=== PATIENT | female | born 1955 | race Caucasian/White ===

== ENCOUNTER 2018-06-05 08:06 | Inpatient (IN) | payer BC ==
[2018-06-05] MEDS ORDERED: IBUPROFEN 600 MG TAB PO STA (08:08)
[2018-06-05] MEDS ORDERED: ACETAMINOPHEN TAB 500 MG TAB PO STA (08:08)
[2018-06-05] MEDS ORDERED: IPRATROPIUM-ALBUTEROL 3 ML NEB INHALATION STA (08:09)
--- NOTE | 2018-06-05 08:12 | ED ---
General Adult HPI - General Stated complaint: ROSIE Time Seen by Provider: 06/05/18 08:06 Source: RN notes reviewed - History of Present Illness Initial comments: This is a 62-year-old female who presents emergency Department complaining of not feeling well over the last 3 days. Patient is a smoker and a diabetic. Patient states she's been feeling extremely tired and she's had a cough but no sputum production. Patient denies knowing of any fevers. Patient denies any chest pain or palpitations. Patient denies abdominal pain patient denies nausea vomiting diarrhea. Patient denies any headache. Patient denies any lightheadedness or dizziness. Patient denies any recent injury or trauma. Patient denies any dysuria hematuria urinary frequency. - Related Data Home Medications Medication Instructions Recorded Confirmed Atorvastatin [Lipitor] 20 mg PO DAILY 06/05/18 06/05/18 Buprenorphine HCl [Subutex] 8 mg SL TID 06/05/18 06/05/18 Cholecalciferol [Vitamin D3] 4,000 unit PO DAILY 06/05/18 06/05/18 Ibuprofen [Motrin Ib] 400 mg PO Q6H PRN 06/05/18 06/05/18 [place]-3 Fatty Acids [[place]-3] 1,000 mg PO BID 06/05/18 06/05/18 Telmisartan/Hydrochlorothiazid 1 tab PO DAILY 06/05/18 06/05/18 [Micardis Hct 80-12.5 mg Tablet] metFORMIN HCL 500 mg PO DAILY 06/05/18 06/05/18 Allergies Allergy/AdvReac Type Severity Reaction Status Date / Time No Known Allergies Allergy Verified 06/05/18 08:43 Review of Systems ROS Statement: Those systems with pertinent positive or pertinent negative responses have been documented in the HPI. ROS Other: All systems not noted in ROS Statement are negative. General Exam - General Exam Comments Initial Comments: GENERAL: Patient is well-developed and well-nourished. Patient is nontoxic and well- hydrated and is in mild distress. ENT: Neck is soft and supple. No significant lymphadenopathy is noted. Oropharynx is clear. Dry mucous membranes. Neck has full range of motion without eliciting any pain. EYES: The sclera were anicteric and conjunctiva were pink and moist. Extraocular movements were intact and pupils were equal round and reactive to light. Eyelids were unremarkable. PULMONARY: Patient has expiratory wheezing and crackles at the right base. Patient was giving poor effort at this time. CARDIOVASCULAR: There is a regular rate and rhythm without any murmurs gallops or rubs. ABDOMEN: Soft and nontender with normal bowel sounds. No palpable organomegaly was noted. There is no palpable pulsatile mass. SKIN: Skin is clear with no lesions or rashes and otherwise unremarkable. NEUROLOGIC: Patient is alert and oriented x3. Cranial nerves II through XII are grossly intact. Motor and sensory are also intact. Normal speech, volume and content. Symmetrical smile. MUSCULOSKELETAL: Normal extremities with adequate strength and full range of motion. No lower extremity swelling or edema. No calf tenderness. LYMPHATICS: No significant lymphadenopathy is noted PSYCHIATRIC: Normal psychiatric evaluation. Course Vital Signs 06/05/18 06/05/18 06/05/18 08:13 08:43 08:55 Temperature 101.3 F H Pulse Rate 109 H 101 H 103 H Respiratory 20 Rate Blood Pressure 109/58 O2 Sat by Pulse Oximetry 06/05/18 09:35 Temperature 99.0 F Pulse Rate 97 Respiratory 20 Rate Blood Pressure 106/53 O2 Sat by Pulse 94 L Oximetry Medical Decision Making - Medical Decision Making EKG shows sinus tachycardia at 107 bpm MT interval is 172 QRS is 68 QT interval 332 QTC is 443. Patient has no T-wave abnormalities no ST segment elevation or depression. Patient has a right lower lobe pneumonia. I started the patient 2 g Rocephin. I started the patient on Zithromax as well. I spoke with Dr. Tony and he agreed to admit the patient. I admitted the patient wrote admitting orders. I continued antibiotics on the floor. I discussed smoking cessation for greater than 3 minutes. The risks of smoking were discussed with the patient including but not limited to risks of cancer, stroke, coronary artery disease and COPD. Also discussed with the patient were multiple methods of quitting smoking. Lastly we discussed the financial costs of smoking. - Lab Data Result diagrams: 06/05/18 08:35 06/05/18 08:35 Lab Results 06/05/18 06/05/18 06/05/18 Range/Units 08:35 08:35 08:35 WBC 14.5 H (3.8-10.6) k/uL RBC 4.70 (3.80-5.40) m/uL Hgb 14.8 (11.4-16.0) gm/dL Hct 46.1 H (34.0-46.0) % MCV 98.2 (80.0-100.0) fL MCH 31.5 (25.0-35.0) pg MCHC 32.1 (31.0-37.0) g/dL RDW 13.2 (11.5-15.5) % Plt Count 147 L (150-450) k/uL Neutrophils % 91 % Lymphocytes % 5 % Monocytes % 3 % Eosinophils % 1 % Basophils % 0 % Neutrophils # 13.2 H (1.3-7.7) k/uL Lymphocytes # 0.7 L (1.0-4.8) k/uL Monocytes # 0.5 (0-1.0) k/uL Eosinophils # 0.2 (0-0.7) k/uL Basophils # 0.0 (0-0.2) k/uL PT (9.0-12.0) sec INR (<1.2) APTT (22.0-30.0) sec Sodium 143 (137-145) mmol/L Potassium 4.1 (3.5-5.1) mmol/L Chloride 103 (98-107) mmol/L Carbon Dioxide 30 (22-30) mmol/L Anion Gap 10 mmol/L BUN 49 H (7-17) mg/dL Creatinine 0.89 (0.52-1.04) mg/dL Est GFR (CKD-EPI)AfAm 81 (>60 ml/min/1.73 sqM) Est GFR (CKD-EPI)NonAf 70 (>60 ml/min/1.73 sqM) Glucose 153 H (74-99) mg/dL Plasma Lactic Acid Darvin (0.7-2.0) mmol/L Calcium 9.0 (8.4-10.2) mg/dL Total Bilirubin 1.4 H (0.2-1.3) mg/dL AST 17 (14-36) U/L ALT 19 (9-52) U/L Alkaline Phosphatase 76 (38-126) U/L Total Creatine Kinase 52 (30-135) U/L Total Protein 7.0 (6.3-8.2) g/dL Albumin 3.9 (3.5-5.0) g/dL 06/05/18 06/05/18 Range/Units 08:35 08:35 WBC (3.8-10.6) k/uL RBC (3.80-5.40) m/uL Hgb (11.4-16.0) gm/dL Hct (34.0-46.0) % MCV (80.0-100.0) fL MCH (25.0-35.0) pg MCHC (31.0-37.0) g/dL RDW (11.5-15.5) % Plt Count (150-450) k/uL Neutrophils % % Lymphocytes % % Monocytes % % Eosinophils % % Basophils % % Neutrophils # (1.3-7.7) k/uL Lymphocytes # (1.0-4.8) k/uL Monocytes # (0-1.0) k/uL Eosinophils # (0-0.7) k/uL Basophils # (0-0.2) k/uL PT 11.7 (9.0-12.0) sec INR 1.1 (<1.2) APTT 24.2 (22.0-30.0) sec Sodium (137-145) mmol/L Potassium (3.5-5.1) mmol/L Chloride (98-107) mmol/L Carbon Dioxide (22-30) mmol/L Anion Gap mmol/L BUN (7-17) mg/dL Creatinine (0.52-1.04) mg/dL Est GFR (CKD-EPI)AfAm (>60 ml/min/1.73 sqM) Est GFR (CKD-EPI)NonAf (>60 ml/min/1.73 sqM) Glucose (74-99) mg/dL Plasma Lactic Acid Darvin 1.3 (0.7-2.0) mmol/L Calcium (8.4-10.2) mg/dL Total Bilirubin (0.2-1.3) mg/dL AST (14-36) U/L ALT (9-52) U/L Alkaline Phosphatase (38-126) U/L Total Creatine Kinase (30-135) U/L Total Protein (6.3-8.2) g/dL Albumin (3.5-5.0) g/dL Disposition Clinical Impression: Pneumonia Disposition: ADMITTED IP TO THIS HOSP Referrals: Ken Ham DO [Primary Care Provider] - 1-2 days Time of Disposition: 09:24
[2018-06-05] MEDS ORDERED: cefTRIAXone 2,000 MG in SODIUM CHLORIDE 0.9% 100 ML IVPB STA (08:21)
[2018-06-05] MEDS: SODIUM CHLORIDE 0.9% 500 ML 500 ML IV SCH ×4 (08:26→09:56)
[2018-06-05 09:05] LABS: Basophils % (A) 0 %; Eosinophils # (A) 0.2 k/uL (0-0.7); Eosinophils % (A) 1 %; HCT 46.1 % (34.0-46.0); HGB 14.8 gm/dL (11.4-16.0); Lymphocytes # (A) 0.7 k/uL (1.0-4.8); Lymphocytes % (A) 5 %; MCH 31.5 pg (25.0-35.0); MCHC 32.1 g/dL (31.0-37.0); MCV 98.2 fL (80.0-100.0); Mean Platelet Volume 6.8; Monocytes # (A) 0.5 k/uL (0-1.0); Monocytes % (A) 3 %; Neutrophils # (A) 13.2 k/uL (1.3-7.7); Neutrophils % (A) 91 %; Platelet Count 147 k/uL (150-450); RDW 13.2 % (11.5-15.5); WBC 14.5 k/uL (3.8-10.6)
[2018-06-05 09:14] LABS: Albumin 3.9 g/dL (3.5-5.0); Potassium 4.1 mmol/L (3.5-5.1); Total Bilirubin 1.4 mg/dL (0.2-1.3)
--- NOTE | 2018-06-05 09:17 | XR ---
EXAMINATION TYPE: XR chest 2V DATE OF EXAM: 06/05/2018 COMPARISON: NONE HISTORY: Shortness of breath TECHNIQUE: Frontal and lateral views of the chest are obtained. FINDINGS: Scattered senescent parenchymal changes noted. Hyperinflation compatible with COPD. Patchy infiltrate right lower lobe is felt to reflect pneumonia. Correlate clinically and progress st udies are recommended. Mild pulmonary venous congestion without overt failure. Heart size is at the upper limits of normal. Mediastinal structures are stable and grossly unremarkable. No evidence for hilar prominence. Degenerative changes dorsal spine. IMPRESSION: 1. Patchy infiltrate right lower lobe is felt to reflect pneumonia. Correlate clinically and progress studies are recommended. Mild pulmonary venous congestion without overt failure.
[2018-06-05 09:19] LABS: INR 1.1 (<1.2); Partial Thromboplastin Time 24.2 sec (22.0-30.0); Prothrombin Time 11.7 sec (9.0-12.0)
[2018-06-05] MEDS ORDERED: AZITHROMYCIN 500 MG in SODIUM CHLORIDE 0.9% 250 ML IVPB STA (09:24)
[2018-06-05] MEDS ORDERED: PNEUMONIA PROTOCOL UTILIZED 1 EACH MISC PO PRN (09:24)
[2018-06-05 09:46] LABS: Creatine Kinase MB 0.6 ng/mL (0.0-2.4); Troponin I 0.016 ng/mL (0.000-0.034)
[2018-06-05 16:33] LABS: Appearance,Urine Cloudy (Clear); Bilirubin,Urine Negative (Negative); Blood,Urine Negative (Negative); Color,Urine Yellow; Glucose,Urine (UA) Negative (Negative); Ketones,Urine Negative (Negative); Leukocyte Esterase,Urine Small (Negative); Mucus,Urine Rare /hpf; Nitrite,Urine Negative (Negative); Protein,Urine 1+ (Negative); RBC,Urine 1 /hpf (0-5); Specific Gravity,Urine 1.018 (1.001-1.035); Squamous Epithelial Cell,Urine 8 /hpf (0-4); Urobilinogen,Urine <2.0 mg/dL (<2.0); WBC,Urine 4 /hpf (0-5)
[2018-06-05] MEDS ORDERED: IPRATROPIUM-ALBUTEROL 3 ML NEB INHALATION PRN (18:05)
[2018-06-05] MEDS ORDERED: FUROSEMIDE 10 MG/ML 4 ML VIAL IV STA (18:07)
[2018-06-05] MEDS: methylPREDNISolone SOD SUCCI 40 MG/ML 1 ML VIAL IV SCH ×2 (18:14→23:23)
[2018-06-05] MEDS: IPRATROPIUM-ALBUTEROL 3 ML NEB INHALATION SCH (20:01)
[2018-06-05 21:14] LABS: Glucose,Whole Blood 132 mg/dL (75-99)
[2018-06-05] MEDS: INSULIN ASPART 100 UNIT/ML 1 ML 10 ML VIAL SQ SCH (21:46)
[2018-06-06 01:54] LABS: Hemoglobin A1C 6.1 % (4.0-6.0)
[2018-06-06 07:33] LABS: Glucose,Whole Blood 155 mg/dL (75-99)
[2018-06-06] MEDS: IPRATROPIUM-ALBUTEROL 3 ML NEB INHALATION SCH ×4 (07:40→20:00)
[2018-06-06] MEDS: methylPREDNISolone SOD SUCCI 40 MG/ML 1 ML VIAL IV SCH ×2 (08:40→16:46)
[2018-06-06] MEDS: INSULIN ASPART 100 UNIT/ML 1 ML 10 ML VIAL SQ SCH ×4 (08:40→21:46)
[2018-06-06] MEDS ORDERED: AZITHROMYCIN 500 MG TAB PO SCH (09:00)
--- NOTE | 2018-06-06 09:53 | XR ---
EXAMINATION TYPE: XR chest 2V DATE OF EXAM: 06/06/2018 COMPARISON: 06/05/2018 HISTORY: 62 year-old female follow-up pneumonia TECHNIQUE: Frontal and lateral views FINDINGS: Borderline heart size. Aorta within normal limits. Mild diffuse interstitial prominence. Some patchy bibasilar densities and trace effusions suggested. IMPRESSION: 2. Heart size with interstitial changes and trace effusions. Correlate for mild CHF. 2. Increased patchy bibasilar areas of atelectasis or infiltrates.
[2018-06-06 12:13] LABS: Glucose,Whole Blood 231 mg/dL (75-99)
--- NOTE | 2018-06-06 13:26 | HP ---
HISTORY AND PHYSICAL CHIEF COMPLAINT: Pneumonitis and COPD exacerbation. HISTORY OF PRESENT ILLNESS: This is the first known admission for this 62-year-old female who presented to the emergency room with not feeling well. She is diabetic. She does smoke. In the emergency room, she was worked up and felt to have pneumonitis and COPD. Infiltrate looks as though was in the right lower lobe. She had laboratory studies in the emergency room with white count 25579. Blood sugar slightly elevated at 153. REVIEW OF SYSTEMS: She denies any headaches, neurologic problems, difficulty with vision or hearing, chest pain, orthopnea, PND, nausea, vomiting, melena, hematochezia, jaundice, hematuria, frequency, urgency, incontinence, etc. PAST MEDICAL HISTORY: Past medical history, family history and personal and social histories are unremarkable otherwise. She has had 5 pregnancies and 5 deliveries. She is not allergic to any medications. MEDICATIONS: At home, she has been on atorvastatin, Suboxone, vitamin D, ibuprofen, metformin, Micardis, and omega-3. PHYSICAL EXAM: VITAL SIGNS: Temperature 101.3, pulse 109, respirations were 40, and blood pressure 109/58. GENERAL: She appeared to be in no acute distress. She was lethargic. Skin is dry and lymph nodes not enlarged. HEENT: Head, ears, eyes, nose, mouth, and throat were normal. Neck veins are not distended. Thyroid was not enlarged. CHEST: Clear except for decreased breath sounds at the right base. CARDIOVASCULAR: Cardiac exam is normal. ABDOMEN: Abdomen is soft, nontender. EXTREMITIES: Normal. IMPRESSION: 1. Pneumonitis. 2. Chronic obstructive pulmonary disease. 3. History of hypertension. 4. History of substance abuse. PLAN: 1. Bed rest. 2. IV fluids. 3. Serial EKGs. 4. Inhaled and IV steroids and updrafts. MMODL / IJN: [id number] /
[2018-06-06 17:02] LABS: Glucose,Whole Blood 155 mg/dL (75-99)
[2018-06-06] MEDS ORDERED: CEPHALEXIN 500 MG CAP PO SCH (18:00)
--- NOTE | 2018-06-06 18:51 | PN ---
PROGRESS NOTE CHIEF COMPLAINT: Exacerbation of chronic obstructive pulmonary disease and pneumonia. HISTORY OF PRESENT ILLNESS: This lady's doing reasonably well and wants to go home, but when oxygen is taken off she drops down to 80 or 79. It is felt that she should not be discharged. She will be kept another day. PHYSICAL EXAM: She does have decreased breath sounds with wheezing, rales and rhonchi throughout. Cardiac exam is normal. IMPRESSION: 1. Exacerbation of chronic obstructive pulmonary disease. 2. Pneumonitis. PLAN: Cancel discharge and see how she does being left off of O2. MMODL / IJN: [id number] /
[2018-06-06 21:39] LABS: Glucose,Whole Blood 233 mg/dL (75-99)
[2018-06-07] MEDS: methylPREDNISolone SOD SUCCI 40 MG/ML 1 ML VIAL IV SCH (00:36)
[2018-06-07 06:15] VITALS: BP 123/74; RESP 19; TEMP 98.2
[2018-06-07 07:45] LABS: Glucose,Whole Blood 159 mg/dL (75-99)
[2018-06-07] MEDS: IPRATROPIUM-ALBUTEROL 3 ML NEB INHALATION SCH ×2 (08:54→12:06)
[2018-06-07] MEDS ORDERED: LOSARTAN 50 MG TAB PO SCH (09:00)
[2018-06-07] MEDS ORDERED: methylPREDNISolone 4 MG TAB PO SCH (09:00)
[2018-06-07] MEDS ORDERED: HYDROCHLOROTHIAZIDE 12.5 MG CAP PO SCH (09:00)
[2018-06-07] MEDS ORDERED: AZITHROMYCIN 500 MG TAB PO SCH (09:00)
[2018-06-07] MEDS: INSULIN ASPART 100 UNIT/ML 1 ML 10 ML VIAL SQ SCH ×2 (09:15→11:58)
[2018-06-07 12:07] LABS: Glucose,Whole Blood 133 mg/dL (75-99)
[2018-06-07 12:21] VITALS: PULSE 92
--- NOTE | 2018-06-07 13:25 | PN ---
PROGRESS NOTE CHIEF COMPLAINT: Respiratory failure, exacerbation of COPD and pneumonitis. HISTORY OF PRESENT ILLNESS: This lady continues to have difficulty. Whenever she is off of O2, she drops down below 80. PHYSICAL EXAM: Chest is a little bit more clear. Cardiac exam is normal. At the present time, she is on oxygen and she cannot get along without it. IMPRESSION: 1. Exacerbation of chronic obstructive pulmonary disease. 2. Pneumonitis. PLAN: Continue to treat until her pulse ox recovers. Her is very anxious to get her out of the hospital and he may sign her out AGAINST MEDICAL ADVICE. ROCIO / MARSHA: [id number] /
== END 2018-06-07 14:02 | disposition left against medical advice (07) | DRG 193 ==
LOC: EC 08:06 → 4MS4W 09:31 → OBSVTOIN 06-07 09:52
PROVIDERS: ADMIT Family Medicine; ATTEND Family Medicine
DX: J18.9 Pneumonia, unspecified organism (principal); J96.90 Respiratory failure, unspecified, unspecified whether with hypoxia or hypercapnia; J44.0 Chronic obstructive pulmonary disease with (acute) lower respiratory infection; J44.1 Chronic obstructive pulmonary disease with (acute) exacerbation; F17.210 Nicotine dependence, cigarettes, uncomplicated; E11.9 Type 2 diabetes mellitus without complications; I10 Essential (primary) hypertension; Z79.84 Long term (current) use of oral hypoglycemic drugs; Z79.899 Other long term (current) drug therapy; F19.11 Other psychoactive substance abuse, in remission
CPT/HCPCS: 36415; 71046; 80053; 81001; 82550; 82553; 83036; 83605; 84484; 85025; 85610; 85730; 87040; 87086; 87502; 93005; 94640

== ENCOUNTER 2018-09-19 18:54 | Inpatient (IN) | payer BC ==
[2018-09-19] MEDS ORDERED: ALBUTEROL NEBULIZED 2.5 MG/3 ML INHALATION STA (18:55)
[2018-09-19] MEDS ORDERED: IPRATROPIUM 0.5 MG/2.5 ML NEBU INHALATION STA (18:55)
[2018-09-19] MEDS ORDERED: methylPREDNISolone SOD SUCCI 125 MG/2 ML VIAL IV STA (18:55)
--- NOTE | 2018-09-19 18:59 | ED ---
General Adult HPI - General Stated complaint: Altered Mental Status Time Seen by Provider: 09/19/18 18:55 Source: patient, family, EMS, RN notes reviewed, old records reviewed - History of Present Illness Initial comments: 63-year-old female presenting with dyspnea, lethargy. Patient had previous hospital admission with pneumonia with similar clinical presentation according to the patient's . History is limited, given predominant by EMS and patient's who is at bedside per she presents in moderate respiratory distress. Decreased level of consciousness. She will answer simple questions. EMS does report stable vitals and given albuterol prior to arrival. No preceding vomiting or diarrhea. Patient was noted by family to have elevated temperature. - Related Data Home Medications Medication Instructions Recorded Confirmed Atorvastatin [Lipitor] 20 mg PO DAILY 06/05/18 09/19/18 Buprenorphine HCl [Subutex] 8 mg SL TID 06/05/18 09/19/18 Cholecalciferol [Vitamin D3] 4,000 unit PO DAILY 06/05/18 09/19/18 Ibuprofen [Motrin Ib] 400 mg PO Q6H PRN 06/05/18 09/19/18 [place]-3 Fatty Acids [[place]-3] 1,000 mg PO BID 06/05/18 09/19/18 Telmisartan/Hydrochlorothiazid 1 tab PO DAILY 06/05/18 09/19/18 [Micardis Hct 80-12.5 mg Tablet] metFORMIN HCL 500 mg PO DAILY 06/05/18 09/19/18 Previous Rx's Medication Instructions Recorded Ipratropium-Albuterol Nebulize 3 ml INHALATION RT-QID #120 06/06/18 [Duoneb 0.5 mg-3 mg/3 ml Soln] ampul.neb Allergies Allergy/AdvReac Type Severity Reaction Status Date / Time No Known Allergies Allergy Verified 09/19/18 19:15 Review of Systems ROS Statement: Those systems with pertinent positive or pertinent negative responses have been documented in the HPI. ROS Other: All systems not noted in ROS Statement are negative. Past Medical History Past Medical History: Diabetes Mellitus, Hyperlipidemia, Hypertension Additional Past Medical History / Comment(s): Chronic back and neck pain, NIDDM type II. History of Any Multi-Drug Resistant Organisms: None Reported Past Surgical History: Cholecystectomy, Orthopedic Surgery Additional Past Surgical History / Comment(s): Bilateral cataract removals/lens implants. Past Anesthesia/Blood Transfusion Reactions: No Reported Reaction Smoking Status: Current every day smoker - Past Family History Father Family Medical History: Coronary Artery Disease (CAD) Additional Family Medical History / Comment(s): Father had CABG. He in his 70s. Mother Family Medical History: No Reported History Additional Family Medical History / Comment(s): Mother was healthy and lived to be 92 yrs old. General Exam General appearance: lethargic, in distress Head exam: Present: atraumatic, normocephalic Eye exam: Present: normal appearance, PERRL ENT exam: Present: mucous membranes dry Neck exam: Present: normal inspection. Absent: tenderness, meningismus Respiratory exam: Present: respiratory distress, rhonchi, accessory muscle use, decreased breath sounds. Absent: wheezes Cardiovascular Exam: Present: regular rate, normal rhythm GI/Abdominal exam: Present: soft. Absent: distended, tenderness, guarding Extremities exam: Present: pedal edema Neurological exam: Absent: motor sensory deficit Skin exam: Present: warm, dry, intact. Absent: cyanosis, diaphoretic Course Vital Signs 09/19/18 09/19/18 09/19/18 18:58 19:32 19:53 Temperature 101.3 F H Pulse Rate 101 H 101 H 101 H Respiratory 22 Rate Blood Pressure 143/71 O2 Sat by Pulse 90 L Oximetry 09/19/18 20:28 Temperature 99.4 F Pulse Rate 109 H Respiratory 18 Rate Blood Pressure 134/68 O2 Sat by Pulse 96 Oximetry EKG Findings - EKG Comments: EKG Findings:: EKG: Normal sinus rhythm, rate of 100, IN interval 182 QRS duration 66, QTC [address] segment changes. Medical Decision Making - Medical Decision Making 63-year-old female presents with lethargy, fever, dyspnea. Patient is responsive although somewhat lethargic. Given treatment by EMS prior to arrival. She has minimal air entry with wheezing on exam. She is moving all extremities symmetrically. Vital signs do reveal tachycardia, fever, she is initiated on antibiotics awaiting cultures. Workup in the emergency department reveals normal white blood cell count 4.2, hemoglobin is elevated 17.6, ABG shows pH 7.25, and CO2 79 consistent with hypercarbia. CMP unremarkable, tropon in and BNP are negative. Head CT is obtained given the degree of lethargy,negative for any acute intracranial pathology. Patient is arousable, she is alert with verbal stimuli. Patient is placed on BiPAP for hypoxic hypercapnic respiratory failure. - Lab Data Result diagrams: 09/19/18 19:19 09/19/18 19:19 Lab Results 09/19/18 09/19/18 09/19/18 Range/Units 19:19 19:19 19:19 WBC 4.2 (3.8-10.6) k/uL RBC 5.56 H (3.80-5.40) m/uL Hgb 17.6 H (11.4-16.0) gm/dL Hct 53.6 H (34.0-46.0) % MCV 96.4 (80.0-100.0) fL MCH 31.6 (25.0-35.0) pg MCHC 32.8 (31.0-37.0) g/dL RDW 14.5 (11.5-15.5) % Plt Count 148 L (150-450) k/uL Neutrophils % 77 % Lymphocytes % 13 % Monocytes % 5 % Eosinophils % 3 % Basophils % 1 % Neutrophils # 3.2 (1.3-7.7) k/uL Lymphocytes # 0.5 L (1.0-4.8) k/uL Monocytes # 0.2 (0-1.0) k/uL Eosinophils # 0.1 (0-0.7) k/uL Basophils # 0.0 (0-0.2) k/uL PT (9.0-12.0) sec INR (<1.2) APTT (22.0-30.0) sec Sample Site ABG pH (7.35-7.45) ABG pCO2 (35-45) mmHg ABG pO2 (83-108) mmHg ABG HCO3 (21-25) mmol/L ABG Total CO2 (19-24) mmol/L ABG O2 Saturation (94-97) % ABG Base Excess mmol/L Bassam Test VBG pH (7.31-7.41) VBG pCO2 (37-51) mmHg VBG HCO3 (24-28) mmol/L FiO2 % Sodium 141 (137-145) mmol/L Potassium 4.4 (3.5-5.1) mmol/L Chloride 102 (98-107) mmol/L Carbon Dioxide 33 H (22-30) mmol/L Anion Gap 6 mmol/L BUN 22 H (7-17) mg/dL Creatinine 0.50 L (0.52-1.04) mg/dL Est GFR (CKD-EPI)AfAm >90 (>60 ml/min/1.73 sqM) Est GFR (CKD-EPI)NonAf >90 (>60 ml/min/1.73 sqM) Glucose 113 H (74-99) mg/dL Plasma Lactic Acid Darvin (0.7-2.0) mmol/L Calcium 9.1 (8.4-10.2) mg/dL Magnesium 1.9 (1.6-2.3) mg/dL Total Bilirubin 0.6 (0.2-1.3) mg/dL AST 18 (14-36) U/L ALT 25 (9-52) U/L Alkaline Phosphatase 97 (38-126) U/L Troponin I (0.000-0.034) ng/mL NT-Pro-B Natriuret Pep 194 pg/mL Total Protein 7.0 (6.3-8.2) g/dL Albumin 4.0 (3.5-5.0) g/dL Influenza Type A RNA (Not Detectd) Influenza Type B (PCR) (Not Detectd) 09/19/18 09/19/18 09/19/18 Range/Units 19:19 19:19 19:19 WBC (3.8-10.6) k/uL RBC (3.80-5.40) m/uL Hgb (11.4-16.0) gm/dL Hct (34.0-46.0) % MCV (80.0-100.0) fL MCH (25.0-35.0) pg MCHC (31.0-37.0) g/dL RDW (11.5-15.5) % Plt Count (150-450) k/uL Neutrophils % % Lymphocytes % % Monocytes % % Eosinophils % % Basophils % % Neutrophils # (1.3-7.7) k/uL Lymphocytes # (1.0-4.8) k/uL Monocytes # (0-1.0) k/uL Eosinophils # (0-0.7) k/uL Basophils # (0-0.2) k/uL PT 11.2 (9.0-12.0) sec INR 1.1 (<1.2) APTT 24.6 (22.0-30.0) sec Sample Site ABG pH (7.35-7.45) ABG pCO2 (35-45) mmHg ABG pO2 (83-108) mmHg ABG HCO3 (21-25) mmol/L ABG Total CO2 (19-24) mmol/L ABG O2 Saturation (94-97) % ABG Base Excess mmol/L Bassam Test VBG pH (7.31-7.41) VBG pCO2 (37-51) mmHg VBG HCO3 (24-28) mmol/L FiO2 % Sodium (137-145) mmol/L Potassium (3.5-5.1) mmol/L Chloride (98-107) mmol/L Carbon Dioxide (22-30) mmol/L Anion Gap mmol/L BUN (7-17) mg/dL Creatinine (0.52-1.04) mg/dL Est GFR (CKD-EPI)AfAm (>60 ml/min/1.73 sqM) Est GFR (CKD-EPI)NonAf (>60 ml/min/1.73 sqM) Glucose (74-99) mg/dL Plasma Lactic Acid Darvin 1.0 (0.7-2.0) mmol/L Calcium (8.4-10.2) mg/dL Magnesium (1.6-2.3) mg/dL Total Bilirubin (0.2-1.3) mg/dL AST (14-36) U/L ALT (9-52) U/L Alkaline Phosphatase (38-126) U/L Troponin I <0.012 (0.000-0.034) ng/mL NT-Pro-B Natriuret Pep pg/mL Total Protein (6.3-8.2) g/dL Albumin (3.5-5.0) g/dL Influenza Type A RNA (Not Detectd) Influenza Type B (PCR) (Not Detectd) 09/19/18 09/19/18 09/19/18 Range/Units 19:19 20:27 20:30 WBC (3.8-10.6) k/uL RBC (3.80-5.40) m/uL Hgb (11.4-16.0) gm/dL Hct (34.0-46.0) % MCV (80.0-100.0) fL MCH (25.0-35.0) pg MCHC (31.0-37.0) g/dL RDW (11.5-15.5) % Plt Count (150-450) k/uL Neutrophils % % Lymphocytes % % Monocytes % % Eosinophils % % Basophils % % Neutrophils # (1.3-7.7) k/uL Lymphocytes # (1.0-4.8) k/uL Monocytes # (0-1.0) k/uL Eosinophils # (0-0.7) k/uL Basophils # (0-0.2) k/uL PT (9.0-12.0) sec INR (<1.2) APTT (22.0-30.0) sec Sample Site rrad ABG pH 7.25 L (7.35-7.45) ABG pCO2 79 H* (35-45) mmHg ABG pO2 60 L (83-108) mmHg ABG HCO3 34 H (21-25) mmol/L ABG Total CO2 37 H (19-24) mmol/L ABG O2 Saturation 89.2 L (94-97) % ABG Base Excess 7.2 mmol/L Bassam Test Yes VBG pH 7.22 L (7.31-7.41) VBG pCO2 86 H* (37-51) mmHg VBG HCO3 34 H (24-28) mmol/L FiO2 28 % Sodium (137-145) mmol/L Potassium (3.5-5.1) mmol/L Chloride (98-107) mmol/L Carbon Dioxide (22-30) mmol/L Anion Gap mmol/L BUN (7-17) mg/dL Creatinine (0.52-1.04) mg/dL Est GFR (CKD-EPI)AfAm (>60 ml/min/1.73 sqM) Est GFR (CKD-EPI)NonAf (>60 ml/min/1.73 sqM) Glucose (74-99) mg/dL Plasma Lactic Acid Darvin (0.7-2.0) mmol/L Calcium (8.4-10.2) mg/dL Magnesium (1.6-2.3) mg/dL Total Bilirubin (0.2-1.3) mg/dL AST (14-36) U/L ALT (9-52) U/L Alkaline Phosphatase (38-126) U/L Troponin I (0.000-0.034) ng/mL NT-Pro-B Natriuret Pep pg/mL Total Protein (6.3-8.2) g/dL Albumin (3.5-5.0) g/dL Influenza Type A RNA Not Detected (Not Detectd) Influenza Type B (PCR) Not Detected (Not Detectd) Critical Care Time Critical Care Time: Yes Total Critical Care Time: 35 Disposition Clinical Impression: Respiratory failure with hypoxia and hypercapnia, COPD exacerbation Disposition: ADMITTED IP TO THIS HOSP Condition: Serious Is patient prescribed a controlled substance at d/c from ED?: No Referrals: Ken Ham DO [Primary Care Provider] - 1-2 days Decision to Admit Reason: Admit from EC Decision Date: 09/19/18 Decision Time: 21:20
[2018-09-19 19:38] LABS: VBG PH 7.22 (7.31-7.41)
[2018-09-19 19:48] LABS: INR 1.1 (<1.2); Partial Thromboplastin Time 24.6 sec (22.0-30.0); Prothrombin Time 11.2 sec (9.0-12.0)
[2018-09-19 19:53] LABS: ALT 25 U/L (9-52); AST 18 U/L (14-36); Alkaline Phosphatase 97 U/L (38-126); Anion Gap 6 mmol/L; Blood Urea Nitrogen 22 mg/dL (7-17); Calcium 9.1 mg/dL (8.4-10.2); Carbon Dioxide 33 mmol/L (22-30); Chloride 102 mmol/L (98-107); Glucose 113 mg/dL (74-99); Magnesium 1.9 mg/dL (1.6-2.3); Potassium 4.4 mmol/L (3.5-5.1); Sodium 141 mmol/L (137-145); Total Bilirubin 0.6 mg/dL (0.2-1.3)
[2018-09-19 19:55] LABS: Basophils % (A) 1 %; Eosinophils # (A) 0.1 k/uL (0-0.7); Eosinophils % (A) 3 %; HCT 53.6 % (34.0-46.0); HGB 17.6 gm/dL (11.4-16.0); Lymphocytes # (A) 0.5 k/uL (1.0-4.8); Lymphocytes % (A) 13 %; MCH 31.6 pg (25.0-35.0); MCHC 32.8 g/dL (31.0-37.0); MCV 96.4 fL (80.0-100.0); Mean Platelet Volume 7.3; Monocytes # (A) 0.2 k/uL (0-1.0); Monocytes % (A) 5 %; Neutrophils # (A) 3.2 k/uL (1.3-7.7); Neutrophils % (A) 77 %; Platelet Count 148 k/uL (150-450); RBC 5.56 m/uL (3.80-5.40); RDW 14.5 % (11.5-15.5); WBC 4.2 k/uL (3.8-10.6)
--- NOTE | 2018-09-19 20:29 | CT ---
EXAMINATION TYPE: CT brain wo con DATE OF EXAM: 09/19/2018 COMPARISON: None INDICATION: altered mental status DLP: 1150.4 mGycm, Automated exposure control for dose reduction was used. CONTRAST: None CT of the brain is performed utilizing 3 mm thick sections through the posterior fossa and 3 mm thick sections through the remaining calvarium. Study is performed within 24 hours of arrival to the hosp ital. No abnormal hyperdensity is present to suggest an acute intracranial hemorrhage. No mass lesion is evident. No acute infarcts are evident. Ventricles and sulci are appropriate for the patient age. Mucosal thickening is through the bilateral maxillary sinuses. Mastoid air cells are clear. Some motion artifact is evident during the exam. IMPRESSIONS: 1. No suspicious acute intracranial process.
[2018-09-19 20:30] LABS: ABG Base Excess 7.2 mmol/L; ABG HCO3 34 mmol/L (21-25); ABG Oxygen Saturation 89.2 % (94-97); ABG PH 7.25 (7.35-7.45); ABG PO2 60 mmHg (83-108); ABG TCO2 37 mmol/L (19-24)
[2018-09-19] MEDS ORDERED: IPRATROPIUM-ALBUTEROL 3 ML NEB INHALATION PRN (21:02)
[2018-09-19] MEDS ORDERED: ALBUTEROL NEBULIZED 2.5 MG/3 ML INHALATION PRN (21:06)
[2018-09-19] MEDS ORDERED: VANCOMYCIN IV PER PHARMACY 1 EACH MISC MISCELLANE PRN (21:07)
[2018-09-19] MEDS ORDERED: AZITHROMYCIN 500 MG in SODIUM CHLORIDE 0.9% 250 ML IVPB STA (21:07)
--- NOTE | 2018-09-19 21:21 | XR ---
EXAMINATION TYPE: XR chest 1V portable DATE OF EXAM: 09/19/2018 COMPARISON: 06/06/2018 INDICATION: Acute mental status change fever short of breath lethargic TECHNIQUE: Single frontal view of the chest is obtained. FINDINGS: The heart size is mildly prominent. The pulmonary vasculature is prominent. Minimal right lower lobe infiltrate is present. IMPRESSION: 1. Cardiomegaly with mild prominent pulmonary vascular markings. Correlate for developing congestive heart failure.
[2018-09-19] MEDS ORDERED: ACETAMINOPHEN IV (For NPO) 1,000 MG in EMPTY BAG 1 BAG IVPB ONE (21:29)
[2018-09-19] MEDS ORDERED: VANCOMYCIN 2,250 MG in SODIUM CHLORIDE 0.9% 500 ML 500 ML IVPB ONE (22:00)
[2018-09-19 22:57] LABS: Appearance,Urine Clear (Clear); Bilirubin,Urine Negative (Negative); Blood,Urine Negative (Negative); Color,Urine Yellow; Glucose,Urine (UA) Negative (Negative); Ketones,Urine Trace (Negative); Leukocyte Esterase,Urine Negative (Negative); Mucus,Urine Rare /hpf; Nitrite,Urine Negative (Negative); Protein,Urine 1+ (Negative); RBC,Urine <1 /hpf (0-5); Specific Gravity,Urine 1.024 (1.001-1.035); Urobilinogen,Urine <2.0 mg/dL (<2.0); WBC,Urine <1 /hpf (0-5)
[2018-09-20] MEDS: methylPREDNISolone SOD SUCCI 125 MG/2 ML VIAL IV SCH ×5 (03:39→22:53)
[2018-09-20] MEDS ORDERED: CEFEPIME 2 GM in SODIUM CHLORIDE 0.9% 100 ML IVPB SCH (06:00)
[2018-09-20] MEDS ORDERED: IPRATROPIUM-ALBUTEROL 3 ML NEB INHALATION SCH (08:00)
[2018-09-20 09:06] LABS: Glucose,Whole Blood 135 mg/dL (75-99)
[2018-09-20 09:16] VITALS: BMI 68.2
[2018-09-20] MEDS ORDERED: IPRATROPIUM-ALBUTEROL 3 ML NEB INHALATION PRN (09:37)
--- NOTE | 2018-09-20 10:29 | CONS ---
CONSULTATION Dictating a pulmonary/critical care consultation. This patient who presented to the emergency room with altered mental status and difficulty breathing. A 63-year-old, female with likely severe COPD, who continues to smoke, who sees a family doctor in [place]. The patient came in with complaints of increasing shortness of breath and decreased mental status. Her decreased mental status relates to acute on chronic hypercapnic respiratory failure. The patient was admitted to the emergency room and then came to the ICU as an overflow patient. I was actually consulted last night, but nobody told me about the patient until the patient arrived in the ICU this morning as an overflow patient. The patient has a prior history of COPD exacerbation secondary to pneumonia. at the bedside. The patient continues to smoke more than a pack a day. Has been smoking for many years. She apparently does not see a lung doctor. Her only medications at home include updraft machine and a rescue inhaler. She does not have oxygen at home. The patient came in with complaints of shortness of breath, chest congestion, coughing, wheezing and minimal phlegm production according to her . Currently, she is on BiPAP at 10 and 5 and 35%. Blood gases were done last night on 28% showing a PO2 of 60, pCO2 of 79, and a pH 7.25. These blood gases are consistent with hypoxemic and hypercapnic respiratory failure. The hypercapnic respiratory failure being acute on chronic. She does have a history of underlying diabetes, history of hypertension and history of hyperlipidemia. HOME MEDICATIONS: Include Lipitor, Suboxone, Subutex, vitamin D3, Motrin, omega-3 acid, Micardis HCT, metformin, and updrafts with DuoNeb. ALLERGIES: Denied. MEDICAL HISTORY: COPD, diabetes, hyperlipidemia, hypertension, chronic back and neck pain. SURGICAL HISTORY: Includes cholecystectomy and orthopedic procedures. She has had bilateral cataract surgery as well. SOCIAL HISTORY: Positive for ongoing tobacco use of more than a pack a day. Denies alcohol or illicit drug use. FAMILY HISTORY: Positive for CAD and bypass grafting. REVIEW OF SYSTEMS: CONSTITUTIONAL: Decreased mental status. NEUROLOGIC: Decreased mental status. HEENT: Negative. CARDIOVASCULAR: Negative. PULMONARY: Shortness of breath. Chest congestion, cough, wheezing and minimal phlegm production. GI negative. Rheumatologic negative. Immunologic negative. Endocrinologic negative. Dermatologic negative. PHYSICAL EXAMINATION: Current vital signs are reviewed. Temperature is 98.2, heart rate 92, respiratory 14, blood pressure 115/66, mean 82. Saturations are about 87-90 percent on the BiPAP. Appears in no acute distress. Very sleepy and lethargic. She does arouse. She seems appropriate. HEENT examination is grossly unremarkable. BiPAP mask in place. NECK: Supple. Full range of motion. No adenopathy or thyromegaly. Neck veins are flat. Cardiovascular examination reveals regular rhythm and rate. Heart rate in the mid 80s. S1, S2 normal. Heart sounds are distant. LUNGS: Coarse rhonchi and wheezes. Breath sounds are diminished. Breath sounds equal bilaterally. ABDOMEN: Soft. Bowel sounds are heard. Extremities are intact. No cyanosis, clubbing, or edema. Skin without rash. Neurologic examination is brief but nonfocal save for the lethargy from the hypercapnic respiratory failure. The patient had a chest x-ray. The chest x-ray showed some mild cardiomegaly and possible early heart failure. She had a brain CT that showed no suspicious acute intracranial process. LABS: Reviewed. White count 4.2, hemoglobin 17.6, hematocrit 53.6, platelet count 148,000 PT/INR, PTT all normal. Blood gases mentioned. Sodium 141, potassium 4.4, chloride 102, CO2 33, anion gap 6, BUN and creatinine were 22 and 0.5. The rest of the labs look okay. N terminal proBNP was 194. The urine is noted. It is essentially negative. Influenza A and B studies were negative. Medications are reviewed. We added updrafts q.i.d. and p.r.n. Pulmicort 1 mg twice a day, mix with Perforomist. The patient is also getting Solu-Medrol 60 mg q.6. The patient is currently on vancomycin and cefepime. This is excessive and probably can be deescalated. ASSESSMENT: 1. Chronic obstructive pulmonary disease exacerbation with acute hypoxemic and hypercapnic respiratory failure. 2. History of ongoing tobacco use and nicotine addiction and probable severe chronic obstructive pulmonary disease. 3. Polycythemia, secondary to chronic hypoxemia. 4. Acute on chronic hypercapnic respiratory failure. 5. History of hypertension. 6. History of diabetes. 7. History of hyperlipidemia. 8. Ongoing tobacco use with nicotine addiction. PLAN: The patient's medications have been adjusted. I will deescalate the antibiotics. I do not believe there is any much going on a chest x-ray. Additional recommendations and suggestions are forthcoming. We have added updrafts q.i.d. p.r.n. as well as Pulmicort and formoterol twice a day. She is on Solu-Medrol 60 mg q.6h. She should have a nicotine patch. No additional recommendations are made. We will continue to follow. Prognosis is guarded. She will need outpatient evaluation by one of us post discharge. MMODL / IJN: [id number] /
[2018-09-20] MEDS: IPRATROPIUM-ALBUTEROL 3 ML NEB INHALATION SCH ×3 (11:18→20:24)
[2018-09-20] MEDS ORDERED: VANCOMYCIN 2,500 MG in SODIUM CHLORIDE 0.9% 500 ML 500 ML IVPB SCH (12:00)
[2018-09-20 16:18] LABS: ABG PCO2 79 mmHg (35-45)
[2018-09-20 17:29] LABS: Glucose,Whole Blood 214 mg/dL (75-99)
[2018-09-20] MEDS: INSULIN ASPART (NovoLOG) 100 UNIT/ML VIAL SQ SCH ×2 (17:59→21:07)
[2018-09-20] MEDS: BUDESONIDE 1 MG/2 ML NEBU INHALATION SCH (20:24)
[2018-09-20] MEDS: FORMOTEROL FUMARATE 20 MCG/2 ML NEBU INHALATION SCH (20:24)
[2018-09-20 21:13] LABS: Glucose,Whole Blood 145 mg/dL (75-99)
--- NOTE | 2018-09-20 21:55 | P.HPIM ---
History of Present Illness H&P Date: 09/20/18 Chief Complaint: Difficulty in breathing Patient is a 7-year-old female with a known history of hypertension, hyperlipidemia, diabetes type 2 non insulin dependent and active nicotine addiction was brought to the hospital due to worsening shortness of breath, lethargic and altered sensorium. Patient has been having worsening respiratory symptoms. Patient was recently treated for left lower extremity cellulitis with Keflex. Otherwise patient denied any complaints of fever or chills. No nausea vomiting or diarrhea. No complaint of abdominal pain. Patient was found to have acute hypoxemic and hypercapnic respiratory failure and was placed on a BiPAP machine. Patient was transferred to MICU. Patient was actually saturating well this morning on nasal cannula. Patient also being treated for possible pneumonia. Patient continues to smoke 1-1/[address] head showed no suspicious acute intracranial process Chest x-ray showed cardiomegaly with mild prominent pulmonary vascular markings. Correlate for developing CHF EKG showed normal sinus rhythm. BNP 194, troponin 1 negative Influenza negative. No leukocytosis. Review of Systems Constitutional: Patient denies any fever or chills . No generalized weakness or weight loss. Abdomen: Patient denied nausea vomiting and diarrhea and abdominal pain. Cardiovascular: Patient denies any chest pain or short of breath no palpitations. Respiratory: Cough without sputum production. Patient does have shortness of breath. Neurologic: Patient denied any numbness or tingling headache. Musculoskeletal: Patient denies any complaints of joint swelling or deformity. Skin: Negative Psychiatric: Negative Endocrine: No heat or cold intolerance. No recent weight gain. Genitourinary: No dysuria or hematuria. All other 14 point ROS negative except the above Past Medical History Past Medical History: Diabetes Mellitus, Hyperlipidemia, Hypertension Additional Past Medical History / Comment(s): Chronic back and neck pain, NIDDM type II. History of Any Multi-Drug Resistant Organisms: None Reported Past Surgical History: Cholecystectomy Additional Past Surgical History / Comment(s): Bilateral cataract removals/lens implants. Past Anesthesia/Blood Transfusion Reactions: No Reported Reaction Past Psychological History: No Psychological Hx Reported Additional Psychological History / Comment(s): Pt resides with her spouse. She is independent. Smoking Status: Current every day smoker Past Alcohol Use History: None Reported Additional Past Alcohol Use History / Comment(s): Pt started smoking in 1974 and is a ppd smoker. Past Drug Use History: None Reported Additional Drug Use History / Comment(s): Pt has hx of opiod abuse but has not for 8-10 years. She is on subutexl - Past Family History Father Family Medical History: Coronary Artery Disease (CAD) Additional Family Medical History / Comment(s): Father had CABG. He in his 70s. Mother Family Medical History: No Reported History Additional Family Medical History / Comment(s): Mother was healthy and lived to be 92 yrs old. Medications and Allergies Home Medications Medication Instructions Recorded Confirmed Type Atorvastatin [Lipitor] 20 mg PO DAILY 06/05/18 09/19/18 History Buprenorphine HCl [Subutex] 8 mg SL TID 06/05/18 09/19/18 History Cholecalciferol [Vitamin D3] 4,000 unit PO DAILY 06/05/18 09/19/18 History Ibuprofen [Motrin Ib] 400 mg PO Q6H PRN 06/05/18 09/19/18 History Malverne-3 Fatty Acids [Malverne-3] 1,000 mg PO BID 06/05/18 09/19/18 History Telmisartan/Hydrochlorothiazid 1 tab PO DAILY 06/05/18 09/19/18 History [Micardis Hct 80-12.5 mg Tablet] metFORMIN HCL 500 mg PO DAILY 06/05/18 09/19/18 History Ipratropium-Albuterol Nebulize 3 ml INHALATION RT-QID #120 06/06/18 09/19/18 Rx [Duoneb 0.5 mg-3 mg/3 ml Soln] ampul.neb Allergies Allergy/AdvReac Type Severity Reaction Status Date / Time No Known Allergies Allergy Verified 09/19/18 19:15 Physical Exam Vitals: Vital Signs Temp Pulse Pulse Resp BP BP Pulse Ox 09/20/18 11:42 84 09/20/18 11:19 78 09/20/18 09:00 98.2 F 92 14 115/66 09/20/18 08:55 88 22 122/54 90 L 09/20/18 07:40 99.0 F 95 18 119/51 87 L 09/20/18 07:33 88 09/20/18 07:17 86 09/20/18 06:08 97.1 F L 87 15 143/73 93 L 09/20/18 03:40 73 11 L 100/64 90 L 09/20/18 02:55 77 12 97/44 88 L 09/20/18 01:34 97.0 F L 77 14 102/51 91 L 09/19/18 23:44 99.5 F 93 24 98/53 93 L 09/19/18 23:12 98.1 F 84 14 97/43 94 L 09/19/18 22:37 104 H 18 107/49 97 09/19/18 21:41 102 H 18 117/56 95 09/19/18 21:25 100.7 F H 100 18 112/51 97 09/19/18 20:28 99.4 F 109 H 18 134/68 96 09/19/18 19:53 101 H 09/19/18 19:32 101 H 09/19/18 18:58 101.3 F H 101 H 22 143/71 90 L Intake and Output 09/19/18 09/20/18 09/20/18 22:59 06:59 14:59 Output Total 500 Balance -500 Output: Urine 500 Straight 500 Other: Voiding Method Bedside Commode Weight 174.7 kg PHYSICAL EXAMINATION: Patient is lying in the bed comfortably, no acute distress, awake alert and oriented.. HEENT: Normocephalic. Neck is supple. Pupils reactive. Nostrils clear. Oral cavity is moist. Ears reveal no drainage. Neck reveals no JVD, carotid bruits, or thyromegaly. CHEST EXAMINATION: Trachea is central. Symmetrical expansion. Bilateral diminished air entry and scattered rhonchi. CARDIAC: Normal S1, S2 with no gallops. No murmurs ABDOMEN: Soft. Bowel sounds normal. No organomegaly. No abdominal bruits. Extremities: reveal no edema. No clubbing or cyanosis Neurologically awake, alert, oriented x3 with well-coordinated movements. No focal deficits noted Skin: No rash or skin lesions. Psychiatric: Coperative. Nonsuicidal Musculoskeletal: No joint swelling or deformity. Normal range of motion. Results CBC & Chem 7: 09/19/18 19:19 09/19/18 19:19 Labs: Abnormal Lab Results - Last 24 Hours (Table) 09/19/18 09/19/18 09/19/18 Range/Units 19:19 19:19 19:19 RBC 5.56 H (3.80-5.40) m/uL Hgb 17.6 H (11.4-16.0) gm/dL Hct 53.6 H (34.0-46.0) % Plt Count 148 L (150-450) k/uL Lymphocytes # 0.5 L (1.0-4.8) k/uL ABG pH (7.35-7.45) ABG pCO2 (35-45) mmHg ABG pO2 (83-108) mmHg ABG HCO3 (21-25) mmol/L ABG Total CO2 (19-24) mmol/L ABG O2 Saturation (94-97) % VBG pH 7.22 L (7.31-7.41) VBG pCO2 86 H* (37-51) mmHg VBG HCO3 34 H (24-28) mmol/L Carbon Dioxide 33 H (22-30) mmol/L BUN 22 H (7-17) mg/dL Creatinine 0.50 L (0.52-1.04) mg/dL Glucose 113 H (74-99) mg/dL POC Glucose (mg/dL) (75-99) mg/dL Urine Protein (Negative) Urine Ketones (Negative) Urine Mucus (None) /hpf 09/19/18 09/19/18 09/20/18 Range/Units 20:27 22:26 08:53 RBC (3.80-5.40) m/uL Hgb (11.4-16.0) gm/dL Hct (34.0-46.0) % Plt Count (150-450) k/uL Lymphocytes # (1.0-4.8) k/uL ABG pH 7.25 L (7.35-7.45) ABG pCO2 79 H* (35-45) mmHg ABG pO2 60 L (83-108) mmHg ABG HCO3 34 H (21-25) mmol/L ABG Total CO2 37 H (19-24) mmol/L ABG O2 Saturation 89.2 L (94-97) % VBG pH (7.31-7.41) VBG pCO2 (37-51) mmHg VBG HCO3 (24-28) mmol/L Carbon Dioxide (22-30) mmol/L BUN (7-17) mg/dL Creatinine (0.52-1.04) mg/dL Glucose (74-99) mg/dL POC Glucose (mg/dL) 135 H (75-99) mg/dL Urine Protein 1+ H (Negative) Urine Ketones Trace H (Negative) Urine Mucus Rare H (None) /hpf Thrombosis Risk Factor Assmnt - DVT/VTE Prophylaxis DVT/VTE Prophylaxis: Pharmacologic Prophylaxis ordered - Choose All That Apply Any of the Below Risk Factors Present?: No Other Risk Factors: Yes Each Risk Factor Represents 2 Points: Age 61-74 years Thrombosis Risk Factor Assessment Total Risk Factor Score: 2 Thrombosis Risk Factor Assessment Level: Low Risk Assessment and Plan Assessment: Acute hypoxemic and hypercapnic respiratory failure secondary to COPD exacerbation Acute COPD exacerbation Chronic ongoing nicotine addiction Hypertension Diabetes type 2 [id number] Chronic back pain and neck pain Hyperlipidemia History of opioid abuse. Currently on Suboxone DVT prophylaxis with heparin subcu Plan: Patient be continued on IV steroids, breathing treatments and empiric antibiotics in the form of Levaquin. Patient will be continued on oxygen therapy and BiPAP as needed. Current with home blood pressure medications and insulin sliding scale. Follow up closely and further recommendations based on the clinical course. Pulmonary is on board. Patient has been counseled extensively for smoking cessation. Discussed with her at bedside in detail. Time with Patient: Greater than 30
[2018-09-20] MEDS: BUPRENORPHINE HCL 8 MG SL SCH (22:40)
[2018-09-20] MEDS: HEPARIN SODIUM,PORCINE 5,000 UNIT/ML 1 ML VIAL SQ SCH (22:53)
[2018-09-21] MEDS: methylPREDNISolone SOD SUCCI 125 MG/2 ML VIAL IV SCH ×3 (06:06→17:29)
[2018-09-21] MEDS: INSULIN ASPART (NovoLOG) 100 UNIT/ML VIAL SQ SCH ×4 (06:18→21:49)
[2018-09-21 06:22] LABS: Glucose,Whole Blood 151 mg/dL (75-99)
[2018-09-21] MEDS: FORMOTEROL FUMARATE 20 MCG/2 ML NEBU INHALATION SCH ×2 (06:56→19:06)
[2018-09-21] MEDS: BUDESONIDE 1 MG/2 ML NEBU INHALATION SCH ×2 (06:57→19:06)
[2018-09-21] MEDS: IPRATROPIUM-ALBUTEROL 3 ML NEB INHALATION SCH ×4 (06:57→19:06)
[2018-09-21 08:46] LABS: ABG Base Excess 4.9 mmol/L; ABG HCO3 31 mmol/L (21-25); ABG Oxygen Saturation 90.7 % (94-97); ABG PCO2 58 mmHg (35-45); ABG PH 7.34 (7.35-7.45); ABG PO2 60 mmHg (83-108); ABG TCO2 33 mmol/L (19-24)
[2018-09-21] MEDS ORDERED: NON-FORMULARY DRUG (Omega-3 Fatty Acids [Omega-3] 1,000 MG) PO SCH (09:00)
[2018-09-21] MEDS: LEVOFLOXACIN 750 MG TAB PO SCH (09:25)
[2018-09-21] MEDS: HEPARIN SODIUM,PORCINE 5,000 UNIT/ML 1 ML VIAL SQ SCH ×2 (09:25→16:00)
[2018-09-21] MEDS: metFORMIN 500 MG TAB PO SCH (09:25)
[2018-09-21] MEDS: ATORVASTATIN 20 MG TAB PO SCH (09:25)
[2018-09-21] MEDS: LOSARTAN 50 MG TAB PO SCH (09:26)
[2018-09-21] MEDS: NICOTINE 21MG/24HR PATCH TRANSDERM SCH (09:26)
[2018-09-21] MEDS: HYDROCHLOROTHIAZIDE 12.5 MG CAP PO SCH (09:28)
[2018-09-21] MEDS: BUPRENORPHINE HCL 8 MG SL SCH ×3 (09:28→21:18)
--- NOTE | 2018-09-21 10:19 | P.PN ---
Subjective Progress Note Date: 09/21/18 On 09/21/2018 I'm seeing this patient in follow-up in the intensive care unit regarding her acute COPD exacerbation. The patient has severe COPD. She presented with acute hypoxic and hypercapnic respiratory failure requiring BiPAP for a story support. She is less short of breath on today's evaluation and the follow-up blood gases showed improvement in the acid base status. Nevertheless, she still hypoxic with a pO2 of 60 on high flow oxygen at 4-5 L. The patient is still having a mild component of respirator acidosis with a pH of 7.33. The patient remains on bronchodilators, IV Solu-Medrol. Chest x-ray showing no acute abnormalities. She is congested and bronchospastic and wheezy, less short of breath compared to yesterday. Tolerating her diet. No chest pain. No altered mentation. Hemodynamically stable and there has been no other significant events overnight. Overall she is improving. Objective - Vital Signs Vital signs: Vital Signs Temp 98.1 F 09/21/18 08:00 Pulse 87 09/21/18 08:00 Resp 13 09/21/18 08:00 BP 136/82 09/21/18 08:00 Pulse Ox 91 L 09/21/18 08:00 Intake & Output 09/20/18 09/21/18 09/21/18 18:59 06:59 18:59 Intake Total 600 240 Output Total 550 550 Balance 50 -310 Weight 77.7 kg Intake: Oral 600 240 Output: Urine 550 550 Other: Voiding Method Bedside Commode Bedside Commode - Exam Gen. appearance, comfortable likely distress. Not using accessory muscles of breathing. Head exam was generally normal. There was no scleral icterus or corneal arcus. Mucous membranes were moist. Neck was supple and without jugular venous distension, thyromegaly, or carotid bruits. Carotids were easily palpable bilaterally. There was no adenopathy. The patient has significant crowding of the posterior oropharynx and the patient has a Mallampati class IV Lung sounds are diminished bilaterally and there is diffuse expiratory wheezes throughout the lung figueredo. There is prolongation of the extremities of breathing. Cardiac exam revealed the PMI to be normally situated and sized. The rhythm was regular and no extrasystoles were noted during several minutes of auscultation. The first and second heart sounds were normal and physiologic splitting of the second heart sound was noted. There were no murmurs, rubs, clicks, or gallops. Abdominal exam revealed normal bowel sounds. The abdomen was soft, non-tender, and without masses, organomegaly, or appreciable enlargement of the abdominal aorta. Examination of the extremities revealed easily palpable radial, femoral and pedal pulses. There was no cyanosis, clubbing or edema. Examination of the skin revealed no evidence of significant rashes, suspicious appearing nevi or other concerning lesions. Neurologically awake and alert and there is no focal logical deficits. - Labs CBC & Chem 7: 09/19/18 19:19 09/19/18 19:19 Labs: Abnormal Lab Results - Last 24 Hours (Table) 09/19/18 09/20/18 09/20/18 Range/Units 20:27 17:17 21:02 ABG pH (7.35-7.45) ABG pCO2 79 H* (35-45) mmHg ABG pO2 (83-108) mmHg ABG HCO3 (21-25) mmol/L ABG Total CO2 (19-24) mmol/L ABG O2 Saturation (94-97) % POC Glucose (mg/dL) 214 H 145 H (75-99) mg/dL 09/21/18 09/21/18 Range/Units 06:10 08:44 ABG pH 7.34 L (7.35-7.45) ABG pCO2 58 H (35-45) mmHg ABG pO2 60 L (83-108) mmHg ABG HCO3 31 H (21-25) mmol/L ABG Total CO2 33 H (19-24) mmol/L ABG O2 Saturation 90.7 L (94-97) % POC Glucose (mg/dL) 151 H (75-99) mg/dL Microbiology - Last 24 Hours (Table) 09/19/18 19:19 Blood Culture - Preliminary Blood No Growth after 24 hours Assessment and Plan Plan: Assessment 1 acute COPD exacerbation 2 acute hypoxic respiratory failure secondary to above 3 acute on top of chronic hypercapnic respiratory failure with severe respiratory acidosis at time of admission, improved with use of BiPAP and the follow-up asbestosis showed improvement 4 polycythemia secondary to chronic hypoxemia 5 hypertension 6 diabetes mellitus 7 smoker 8 hyperlipidemia Plan Reviewed the follow-up blood gases from today. Continue same treatment. Continue bronchodilators. Continue steroids. Discontinue BiPAP for now. Ad genao diet. She can be transferred to a regular medical floor with remote telemetry. We'll continue to follow. Smoking cessation counseling was done. She will need home O2 probably within next 24-48 hours and she will also need smoking cessation counseling.
[2018-09-21] MEDS: CHOLECALCIFEROL 1,000 UNIT TAB PO SCH (11:58)
[2018-09-21 12:03] LABS: Glucose,Whole Blood 175 mg/dL (75-99)
[2018-09-21 17:21] LABS: Glucose,Whole Blood 149 mg/dL (75-99)
[2018-09-21 21:20] LABS: Glucose,Whole Blood 212 mg/dL (75-99)
[2018-09-22] MEDS: methylPREDNISolone SOD SUCCI 125 MG/2 ML VIAL IV SCH ×5 (00:55→23:52)
[2018-09-22] MEDS: HEPARIN SODIUM,PORCINE 5,000 UNIT/ML 1 ML VIAL SQ SCH ×4 (00:55→23:53)
[2018-09-22] MEDS: IPRATROPIUM-ALBUTEROL 3 ML NEB INHALATION SCH ×4 (07:01→20:12)
[2018-09-22] MEDS: BUDESONIDE 1 MG/2 ML NEBU INHALATION SCH ×2 (07:01→20:12)
[2018-09-22] MEDS: FORMOTEROL FUMARATE 20 MCG/2 ML NEBU INHALATION SCH ×2 (07:01→20:12)
[2018-09-22 07:04] LABS: Glucose,Whole Blood 160 mg/dL (75-99)
[2018-09-22] MEDS: INSULIN ASPART (NovoLOG) 100 UNIT/ML VIAL SQ SCH ×4 (07:08→22:28)
[2018-09-22] MEDS: LOSARTAN 50 MG TAB PO SCH (08:17)
[2018-09-22] MEDS: HYDROCHLOROTHIAZIDE 12.5 MG CAP PO SCH (08:17)
[2018-09-22] MEDS: ATORVASTATIN 20 MG TAB PO SCH (08:17)
[2018-09-22] MEDS: metFORMIN 500 MG TAB PO SCH (08:17)
[2018-09-22] MEDS: NICOTINE 21MG/24HR PATCH TRANSDERM SCH (08:17)
[2018-09-22] MEDS: LEVOFLOXACIN 750 MG TAB PO SCH (08:18)
[2018-09-22] MEDS: BUPRENORPHINE HCL 8 MG SL SCH ×3 (08:18→22:31)
[2018-09-22 12:07] LABS: Glucose,Whole Blood 179 mg/dL (75-99)
--- NOTE | 2018-09-22 12:09 | P.PN ---
Subjective Progress Note Date: 09/22/18 Principal diagnosis: Acute hypoxic respiratory failure secondary to COPD exacerbation On 09/21/2018 I'm seeing this patient in follow-up in the intensive care unit regarding her acute COPD exacerbation. The patient has severe COPD. She presented with acute hypoxic and hypercapnic respiratory failure requiring BiPAP for a story support. She is less short of breath on today's evaluation and the follow-up blood gases showed improvement in the acid base status. Nevertheless, she still hypoxic with a pO2 of 60 on high flow oxygen at 4-5 L. The patient is still having a mild component of respirator acidosis with a pH of 7.33. The patient remains on bronchodilators, IV Solu-Medrol. Chest x-ray showing no acute abnormalities. She is congested and bronchospastic and wheezy, less short of breath compared to yesterday. Tolerating her diet. No chest pain. No altered mentation. Hemodynamically stable and there has been no other significant events overnight. Overall she is improving. On 09/22/2018 patient seen in follow-up in the intensive care unit, she is await ing bed on medical surgical floor. She is improving, breathing easier, lung sounds reveal some scattered wheezes, she still bronchospastic, although improving. She still remains on 5 L of oxygen her pulse ox is 92%, yesterday patient was up and ambulating in the hallway, tolerated activity fairly well. No new chest x-rays no new labs. Vital signs are stable, no acute events overnight. From pulmonary perspective the patient is improving, not quite ready for discharge. Objective - Vital Signs Vital signs: Vital Signs Temp 98.2 F 09/22/18 08:00 Pulse 90 09/22/18 11:11 Resp 20 09/22/18 08:00 BP 139/68 09/22/18 08:00 Pulse Ox 90 L 09/22/18 08:00 Intake & Output 09/21/18 09/22/18 09/22/18 18:59 06:59 18:59 Intake Total 480 Output Total 675 Balance 480 -675 Weight 78.1 kg Intake: Oral 480 Output: Urine 675 Other: Voiding Method Bedside Commode Bedside Commode Bedside Commode # Voids 2 - Exam GENERAL EXAM: Alert, active, comfortable in no apparent distress. HEAD: Normocephalic/atraumatic. EYES: Normal reaction of pupils, equal size. Conjunctiva pink, sclera white. NOSE: Clear with pink turbinates. THROAT: No erythema or exudates. NECK: No masses, no JVD, no thyroid enlargement, no adenopathy. CHEST: No chest wall deformity. Symmetrical expansion. LUNGS: Equal air entry with scattered wheezes CVS: Regular rate and rhythm, normal S1 and S2, no gallops, no murmurs, no rubs ABDOMEN: Soft, nontender. No hepatosplenomegaly, normal bowel sounds, no guarding or rigidity. EXTREMITIES: No clubbing, no edema, no cyanosis, 2+ pulses and upper and lower extremities. MUSCULOSKELETAL: Muscle strength and tone normal. SPINE: No scoliosis or deformity SKIN: No rashes CENTRAL NERVOUS SYSTEM: Alert and oriented -3. No focal deficits, tone is normal in all 4 extremities. PSYCHIATRIC: Alert and oriented -3. Appropriate affect. Intact judgment and insight. - Labs CBC & Chem 7: 09/19/18 19:19 09/19/18 19:19 Labs: Abnormal Lab Results - Last 24 Hours (Table) 09/21/18 09/21/18 09/21/18 Range/Units 11:42 17:10 21:08 POC Glucose (mg/dL) 175 H 149 H 212 H (75-99) mg/dL 09/22/18 Range/Units 06:53 POC Glucose (mg/dL) 160 H (75-99) mg/dL Microbiology - Last 24 Hours (Table) 09/19/18 19:19 Blood Culture - Preliminary Blood No Growth after 48 hours Assessment and Plan Plan: Assessment: 1 acute COPD exacerbation 2 acute hypoxic respiratory failure secondary to above 3 acute on top of chronic hypercapnic respiratory failure with severe respiratory acidosis at time of admission, improved with use of BiPAP and the follow-up asbestosis showed improvement 4 polycythemia secondary to chronic hypoxemia 5 hypertension 6 diabetes mellitus 7 smoker 8 hyperlipidemia Plan: Continue current medical treatment, continue IV steroids, has not required BiPAP support, she still remains on 5 L of oxygen, try to wean oxygen down, ambulate the patient. Not quite ready for discharge, she is stable for transfer out of the intensive care unit to general medical floor. I performed a history & physical examination of the patient and discussed their management with my nurse practitioner, Freda Cheng. I reviewed the nurse practitioner's note and agree with the documented findings and plan of care. Lung sounds are positive for diffuse wheezes throughout the lung figueredo. The findings and the impression was discussed with the patient. I attest to the documentation by the nurse practitioner. Time with Patient: Less than 30
[2018-09-22] MEDS: CHOLECALCIFEROL 1,000 UNIT TAB PO SCH (12:24)
[2018-09-22 17:17] LABS: Glucose,Whole Blood 196 mg/dL (75-99)
[2018-09-22 20:11] LABS: Glucose,Whole Blood 188 mg/dL (75-99)
[2018-09-22 23:03] VITALS: RESP 16
--- NOTE | 2018-09-23 00:17 | P.PN ---
Subjective Progress Note Date: 09/21/18 Principal diagnosis: Acute COPD exacerbation Patient is a 7-year-old female with a known history of hypertension, hyperlipidemia, diabetes type 2 non insulin dependent and active nicotine addiction was brought to the hospital due to worsening shortness of breath, lethargic and altered sensorium. Patient has been having worsening respiratory symptoms. Patient was recently treated for left lower extremity cellulitis with Keflex. Otherwise patient denied any complaints of fever or chills. No nausea vomiting or diarrhea. No complaint of abdominal pain. Patient was found to have acute hypoxemic and hypercapnic respiratory failure and was placed on a BiPAP machine. Patient was transferred to MICU. Patient was actually saturating well this morning on nasal cannula. Patient also being treated for possible pneumonia. Patient continues to smoke 1-1/[address] head showed no suspicious acute intracranial process Chest x-ray showed cardiomegaly with mild prominent pulmonary vascular markings. Correlate for developing CHF EKG showed normal sinus rhythm. BNP 194, troponin 1 negative Influenza negative. No leukocytosis. 09/21/2018 Patient is currently in the intensive care unit. Patient says that her breathing is much improved today. Still requiring high proximal and another cannula. Patient is being continued on IV steroids and breathing treatments. Chest x-ray showed no acute abnormality. Patient is able to sit in the chair comfortably. No fever no chills. Does have cough without much sputum production. Current medications reviewed Objective - Vital Signs Vital signs: Vital Signs Temp 98.9 F 09/21/18 21:00 Pulse 95 09/21/18 21:00 Resp 18 09/21/18 21:00 BP 125/68 09/21/18 21:00 Pulse Ox 91 L 09/21/18 21:00 Intake & Output 09/21/18 09/21/18 09/22/18 06:59 18:59 06:59 Intake Total 240 480 Output Total 550 300 Balance -310 480 -300 Weight 77.7 kg Intake: Oral 240 480 Output: Urine 550 300 Other: Voiding Method Bedside Commode Bedside Commode Bedside Commode # Voids 2 - Exam PHYSICAL EXAMINATION: Patient is lying in the bed comfortably, no acute distress, awake alert and oriented.. HEENT: Normocephalic. Neck is supple. Pupils reactive. Nostrils clear. Oral cavity is moist. Ears reveal no drainage. Neck reveals no JVD, carotid bruits, or thyromegaly. CHEST EXAMINATION: Trachea is central. Symmetrical expansion. Scattered rhonchi and wheezing. CARDIAC: Normal S1, S2 with no gallops. No murmurs ABDOMEN: Soft. Bowel sounds normal. No organomegaly. No abdominal bruits. Extremities: reveal no edema. No clubbing or cyanosis Neurologically awake, alert, oriented x3 with well-coordinated movements. No focal deficits noted Skin: No rash or skin lesions. Psychiatric: Coperative. Nonsuicidal Musculoskeletal: No joint swelling or deformity. Normal range of motion. - Labs CBC & Chem 7: 09/19/18 19:19 09/19/18 19:19 Labs: Abnormal Lab Results - Last 24 Hours (Table) 09/21/18 09/21/18 09/21/18 Range/Units 06:10 08:44 11:42 ABG pH 7.34 L (7.35-7.45) ABG pCO2 58 H (35-45) mmHg ABG pO2 60 L (83-108) mmHg ABG HCO3 31 H (21-25) mmol/L ABG Total CO2 33 H (19-24) mmol/L ABG O2 Saturation 90.7 L (94-97) % POC Glucose (mg/dL) 151 H 175 H (75-99) mg/dL 09/21/18 09/21/18 Range/Units 17:10 21:08 ABG pH (7.35-7.45) ABG pCO2 (35-45) mmHg ABG pO2 (83-108) mmHg ABG HCO3 (21-25) mmol/L ABG Total CO2 (19-24) mmol/L ABG O2 Saturation (94-97) % POC Glucose (mg/dL) 149 H 212 H (75-99) mg/dL Microbiology - Last 24 Hours (Table) 09/19/18 19:19 Blood Culture - Preliminary Blood No Growth after 48 hours Assessment and Plan Assessment: Acute hypoxemic and hypercapnic respiratory failure secondary to COPD exacerbation Acute COPD exacerbation Chronic ongoing nicotine addiction Hypertension Diabetes type 2 [id number] Chronic back pain and neck pain Hyperlipidemia History of opioid abuse. Currently on Suboxone DVT prophylaxis with heparin subcu Plan: Patient be continued on IV steroids, breathing treatments and empiric antibiotics in the form of Levaquin. Patient will be continued on oxygen therapy and BiPAP as needed. Current with home blood pressure medications and insulin sliding scale. Follow up closely and further recommendations based on the clinical course. Pulmonary is on board. Patient has been counseled extensively for smoking cessation. Discussed with her at bedside in detail. Time with Patient: Greater than 30
--- NOTE | 2018-09-23 00:20 | P.PN ---
Subjective Progress Note Date: 09/22/18 Principal diagnosis: Acute COPD exacerbation Patient is a 7-year-old female with a known history of hypertension, hyperlipidemia, diabetes type 2 non insulin dependent and active nicotine addiction was brought to the hospital due to worsening shortness of breath, lethargic and altered sensorium. Patient has been having worsening respiratory symptoms. Patient was recently treated for left lower extremity cellulitis with Keflex. Otherwise patient denied any complaints of fever or chills. No nausea vomiting or diarrhea. No complaint of abdominal pain. Patient was found to have acute hypoxemic and hypercapnic respiratory failure and was placed on a BiPAP machine. Patient was transferred to MICU. Patient was actually saturating well this morning on nasal cannula. Patient also being treated for possible pneumonia. Patient continues to smoke 1-1/[address] head showed no suspicious acute intracranial process Chest x-ray showed cardiomegaly with mild prominent pulmonary vascular markings. Correlate for developing CHF EKG showed normal sinus rhythm. BNP 194, troponin 1 negative Influenza negative. No leukocytosis. 09/21/2018 Patient is currently in the intensive care unit. Patient says that her breathing is much improved today. Still requiring high proximal and another cannula. Patient is being continued on IV steroids and breathing treatments. Chest x-ray showed no acute abnormality. Patient is able to sit in the chair comfortably. No fever no chills. Does have cough without much sputum production. 09/22/2018 Patient says that her breathing is improving. Currently staying in the chair comfortably. But still requiring high flow oxygen via nasal cannula. Patient will need home oxygen. Patient is still having scattered rhonchi and wheezing on examination. Patient is dyspneic with ablation. Currently being continued on IV steroids and breathing treatments and antibiotics in the form of Levaquin. Pulmonary is on board. No fever no chills. No nausea vomiting or abdominal pain. No diarrhea. No other acute overnight issues. Anticipate discharge in next 24-48 hours. Patient will need home oxygen. Current medications reviewed Objective - Vital Signs Vital signs: Vital Signs Temp 97.9 F 09/22/18 21:00 Pulse 97 09/22/18 21:00 Resp 16 09/22/18 21:00 BP 142/71 09/22/18 21:00 Pulse Ox 96 09/22/18 21:00 Intake & Output 09/22/18 09/22/18 09/23/18 06:59 18:59 06:59 Intake Total 720 590 Output Total 675 Balance -675 720 590 Weight 78.1 kg Intake: Oral 720 590 Output: Urine 675 Other: Voiding Method Bedside Commode Bedside Commode # Voids 1 2 - Exam PHYSICAL EXAMINATION: Patient is lying in the bed comfortably, no acute distress, awake alert and oriented.. HEENT: Normocephalic. Neck is supple. Pupils reactive. Nostrils clear. Oral c avity is moist. Ears reveal no drainage. Neck reveals no JVD, carotid bruits, or thyromegaly. CHEST EXAMINATION: Trachea is central. Symmetrical expansion. Scattered rhonchi and wheezing. CARDIAC: Normal S1, S2 with no gallops. No murmurs ABDOMEN: Soft. Bowel sounds normal. No organomegaly. No abdominal bruits. Extremities: reveal no edema. No clubbing or cyanosis Neurologically awake, alert, oriented x3 with well-coordinated movements. No focal deficits noted Skin: No rash or skin lesions. Psychiatric: Coperative. Nonsuicidal Musculoskeletal: No joint swelling or deformity. Normal range of motion. - Labs CBC & Chem 7: 09/19/18 19:19 09/19/18 19:19 Labs: Abnormal Lab Results - Last 24 Hours (Table) 09/22/18 09/22/18 09/22/18 Range/Units 06:53 11:54 17:06 POC Glucose (mg/dL) 160 H 179 H 196 H (75-99) mg/dL 09/22/18 Range/Units 20:10 POC Glucose (mg/dL) 188 H (75-99) mg/dL Microbiology - Last 24 Hours (Table) 09/19/18 19:19 Blood Culture - Preliminary Blood No Growth after 72 hours Assessment and Plan Assessment: Acute hypoxemic and hypercapnic respiratory failure secondary to COPD exacerba tion Acute COPD exacerbation Chronic ongoing nicotine addiction Hypertension Diabetes type 2 [id number] Chronic back pain and neck pain Hyperlipidemia History of opioid abuse. Currently on Suboxone DVT prophylaxis with heparin subcu Plan: Patient be continued on IV steroids, breathing treatments and empiric antibiotics in the form of Levaquin. Patient will be continued on oxygen ther apy and BiPAP as needed. Current with home blood pressure medications and insulin sliding scale. Follow up closely and further recommendations based on the clinical course. Pulmonary is on board. Patient has been counseled extensively for smoking cessation. Discussed with her at bedside in detail. Time with Patient: Greater than 30
[2018-09-23 05:35] VITALS: BP 143/77; TEMP 97.6
[2018-09-23] MEDS: methylPREDNISolone SOD SUCCI 125 MG/2 ML VIAL IV SCH ×2 (06:27→12:37)
[2018-09-23] MEDS: LOSARTAN 50 MG TAB PO SCH (08:23)
[2018-09-23] MEDS: HYDROCHLOROTHIAZIDE 12.5 MG CAP PO SCH (08:24)
[2018-09-23] MEDS: CHOLECALCIFEROL 1,000 UNIT TAB PO SCH (08:24)
[2018-09-23] MEDS: metFORMIN 500 MG TAB PO SCH (08:24)
[2018-09-23] MEDS: LEVOFLOXACIN 750 MG TAB PO SCH (08:24)
[2018-09-23] MEDS: ATORVASTATIN 20 MG TAB PO SCH (08:24)
[2018-09-23] MEDS: HEPARIN SODIUM,PORCINE 5,000 UNIT/ML 1 ML VIAL SQ SCH (08:24)
[2018-09-23] MEDS: NICOTINE 21MG/24HR PATCH TRANSDERM SCH (08:24)
[2018-09-23] MEDS: BUPRENORPHINE HCL 8 MG SL SCH (08:27)
[2018-09-23] MEDS: BUDESONIDE 1 MG/2 ML NEBU INHALATION SCH (08:29)
[2018-09-23] MEDS: FORMOTEROL FUMARATE 20 MCG/2 ML NEBU INHALATION SCH (08:29)
[2018-09-23] MEDS: IPRATROPIUM-ALBUTEROL 3 ML NEB INHALATION SCH ×2 (08:29→12:26)
[2018-09-23 08:42] VITALS: PULSE 88
[2018-09-23 09:44] LABS: Anion Gap 7 mmol/L; Blood Urea Nitrogen 25 mg/dL (7-17); Calcium 9.4 mg/dL (8.4-10.2); Carbon Dioxide 32 mmol/L (22-30); Chloride 100 mmol/L (98-107); Glucose 208 mg/dL (74-99); Potassium 4.2 mmol/L (3.5-5.1); Sodium 139 mmol/L (137-145)
[2018-09-23 09:56] LABS: Basophils % (A) 0 %; Eosinophils # (A) 0.1 k/uL (0-0.7); Eosinophils % (A) 1 %; HCT 53.4 % (34.0-46.0); Hypochromasia Slight; Lymphocytes # (A) 0.4 k/uL (1.0-4.8); Lymphocytes % (A) 4 %; MCH 31.2 pg (25.0-35.0); MCHC 31.8 g/dL (31.0-37.0); Mean Platelet Volume 7.8; Monocytes # (A) 0.3 k/uL (0-1.0); Monocytes % (A) 2 %; Neutrophils # (A) 9.8 k/uL (1.3-7.7); Neutrophils % (A) 93 %; Platelet Count 175 k/uL (150-450); RBC 5.46 m/uL (3.80-5.40); RDW 14.7 % (11.5-15.5); WBC 10.5 k/uL (3.8-10.6)
[2018-09-23 11:59] LABS: Glucose,Whole Blood 160 mg/dL (75-99)
--- NOTE | 2018-09-23 12:16 | P.DS ---
Providers Date of admission: 09/19/18 21:02 Attending physician: Drake Holt Consults: 09/19/18 21:02 Consult Physician Routine Consulting Provider: Felicitas Alanis Consult Reason/Comments: COPD, hypoxic hypercapnic respiratory failure Do you want consulting provider notified?: Yes Primary care physician: Ken Ham Hospital Course: Patient was admitted for COPD exacerbation was initially in ICU subsequently transferred out of ICU patient was treated for acute respiratory failure. Patient is clinically doing well is on 2 L of REQUIRING OXYGEN UPON AMBULATION PATIENT WILL BE DISCHARGED ON 2 L OF OXYGEN. THERE IS NO EVIDENCE OF PNEUMONIA. I DO NOT BELIEVE PATIENT WILL REQUIRE ANY ANTIBIOTICS AND THE PATIENT WILL BE DONATED DISCHARGED ON WEANING DOSE OF STEROIDS. PATIENT STAYS IN THE HOSPITAL MAY NOT REQUIRE ANY OXYGEN AT ALL BUT PATIENT IS NOT WILLING TO STAY IN THE HOSPITAL. HOPEFULLY PATIENT WILL NOT REQUIRE OXYGEN LONG-TERM Assessment: Acute hypoxemic and hypercapnic respiratory failure secondary to COPD exacerbation Acute COPD exacerbation Chronic ongoing nicotine addiction Hypertension Diabetes type 2 [id number] Chronic back pain and neck pain Hyperlipidemia History of opioid abuse. Currently on Suboxone PHYSICAL EXAMINATION: GENERAL: The patient is alert and oriented x3, not in any acute distress. Well developed, well nourished. HEENT: Pupils are round and equally reacting to light. EOMI. No scleral icterus. No conjunctival pallor. Normocephalic, atraumatic. No pharyngeal erythema. No thyromegaly. CARDIOVASCULAR: S1 and S2 present. No murmurs, rubs, or gallops. PULMONARY: Chest is clear to auscultation, no wheezing or crackles. ABDOMEN: Soft, nontender, nondistended, normoactive bowel sounds. No palpable organomegaly. MUSCULOSKELETAL: No joint swelling or deformity. EXTREMITIES: No cyanosis, clubbing, or pedal edema. NEUROLOGICAL: Gross neurological examination did not reveal any focal deficits. SKIN: No rashes. Patient Condition at Discharge: Serious Plan - Discharge Summary New Discharge Prescriptions: New predniSONE 10 mg PO DAILY #30 tab Ranitidine HCl [Zantac] 150 mg PO BID #30 tab Continue [place]-3 Fatty Acids [[place]-3] 1,000 mg PO BID Cholecalciferol [Vitamin D3] 4,000 unit PO DAILY metFORMIN HCL 500 mg PO DAILY Telmisartan/Hydrochlorothiazid [Micardis Hct 80-12.5 mg Tablet] 1 tab PO DAILY Buprenorphine HCl [Subutex] 8 mg SL TID Atorvastatin [Lipitor] 20 mg PO DAILY Ibuprofen [Motrin Ib] 400 mg PO Q6H PRN PRN Reason: Pain Ipratropium-Albuterol Nebulize [Duoneb 0.5 mg-3 mg/3 ml Soln] 3 ml INHALATION RT-QID #120 ampul.neb Discharge Medication List Atorvastatin [Lipitor] 20 mg PO DAILY 06/05/18 [History] Buprenorphine HCl [Subutex] 8 mg SL TID 06/05/18 [History] Cholecalciferol [Vitamin D3] 4,000 unit PO DAILY 06/05/18 [History] Ibuprofen [Motrin Ib] 400 mg PO Q6H PRN 06/05/18 [History] [place]-3 Fatty Acids [[place]-3] 1,000 mg PO BID 06/05/18 [History] Telmisartan/Hydrochlorothiazid [Micardis Hct 80-12.5 mg Tablet] 1 tab PO DAILY 06/05/18 [History] metFORMIN HCL 500 mg PO DAILY 06/05/18 [History] Ipratropium-Albuterol Nebulize [Duoneb 0.5 mg-3 mg/3 ml Soln] 3 ml INHALATION RT-QID #120 ampul.neb 06/06/18 [Rx] Ranitidine HCl [Zantac] 150 mg PO BID #30 tab 09/23/18 [Rx] predniSONE 10 mg PO DAILY #30 tab 09/23/18 [Rx] Follow up Appointment(s)/Referral(s): Ken Ham DO [Primary Care Provider] - 3 Days
[2018-09-23] MEDS: INSULIN ASPART (NovoLOG) 100 UNIT/ML VIAL SQ SCH ×2 (12:37→12:38)
--- NOTE | 2018-09-23 14:30 | P.PN ---
Subjective Progress Note Date: 09/23/18 Principal diagnosis: Acute hypoxic respiratory failure secondary to COPD exacerbation On 09/21/2018 I'm seeing this patient in follow-up in the intensive care unit regarding her acute COPD exacerbation. The patient has severe COPD. She presented with acute hypoxic and hypercapnic respiratory failure requiring BiPAP for a story support. She is less short of breath on today's evaluation and the follow-up blood gases showed improvement in the acid base status. Nevertheless, she still hypoxic with a pO2 of 60 on high flow oxygen at 4-5 L. The patient is still having a mild component of respirator acidosis with a pH of 7.33. The patient remains on bronchodilators, IV Solu-Medrol. Chest x-ray showing no acute abnormalities. She is congested and bronchospastic and wheezy, less short of breath compared to yesterday. Tolerating her diet. No chest pain. No altered mentation. Hemodynamically stable and there has been no other significant events overnight. Overall she is improving. On 09/22/2018 patient seen in follow-up in the intensive care unit, she is await ing bed on medical surgical floor. She is improving, breathing easier, lung sounds reveal some scattered wheezes, she still bronchospastic, although improving. She still remains on 5 L of oxygen her pulse ox is 92%, yesterday patient was up and ambulating in the hallway, tolerated activity fairly well. No new chest x-rays no new labs. Vital signs are stable, no acute events overnight. From pulmonary perspective the patient is improving, not quite ready for discharge. On 09/23/2018 patient seen in follow-up on medical surgical floor. She is awake and alert, she is doing much better, breathing better, she is on 3 L of oxygen per nasal cannula, down from 5 L, lung sounds significantly improved, minimal end expiratory wheezes on forced exhale maneuver, she has been switched to oral prednisone, room air pulse ox is 86%, no fever or chills, blood culture showed no growth. Patient has been ambulating, tolerating activity well, requested to go home today, from pulmonary perspective patient is stable for discharge home today Objective - Vital Signs Vital signs: Vital Signs Temp 97.6 F 09/23/18 05:34 Pulse 88 09/23/18 12:36 Resp 16 09/23/18 08:00 BP 143/77 09/23/18 05:34 Pulse Ox 92 L 09/23/18 11:17 Intake & Output 09/22/18 09/23/18 09/23/18 18:59 06:59 18:59 Intake Total 720 590 Balance 720 590 Intake: Oral 720 590 Other: Voiding Method Bedside Commode Bedside Commode # Voids 1 1 - Exam GENERAL EXAM: Alert, active, comfortable in no apparent distress. On 3 L of oxygen HEAD: Normocephalic/atraumatic. EYES: Normal reaction of pupils, equal size. Conjunctiva pink, sclera white. NOSE: Clear with pink turbinates. THROAT: No erythema or exudates. NECK: No masses, no JVD, no thyroid enlargement, no adenopathy. CHEST: No chest wall deformity. Symmetrical expansion. LUNGS: Equal air entry with normal and expiratory wheezes on forced exhale maneuver, overall significantly improved CVS: Regular rate and rhythm, normal S1 and S2, no gallops, no murmurs, no rubs ABDOMEN: Soft, nontender. No hepatosplenomegaly, normal bowel sounds, no guarding or rigidity. EXTREMITIES: No clubbing, no edema, no cyanosis, 2+ pulses and upper and lower extremities. MUSCULOSKELETAL: Muscle strength and tone normal. SPINE: No scoliosis or deformity SKIN: No rashes CENTRAL NERVOUS SYSTEM: Alert and oriented -3. No focal deficits, tone is normal in all 4 extremities. PSYCHIATRIC: Alert and oriented -3. Appropriate affect. Intact judgment and insight. - Labs CBC & Chem 7: 09/23/18 08:18 09/23/18 08:18 Labs: Abnormal Lab Results - Last 24 Hours (Table) 09/22/18 09/22/18 09/23/18 Range/Units 17:06 20:10 08:18 RBC 5.46 H (3.80-5.40) m/uL Hgb 17.0 H (11.4-16.0) gm/dL Hct 53.4 H (34.0-46.0) % Neutrophils # 9.8 H (1.3-7.7) k/uL Lymphocytes # 0.4 L (1.0-4.8) k/uL Carbon Dioxide (22-30) mmol/L BUN (7-17) mg/dL Creatinine (0.52-1.04) mg/dL Glucose (74-99) mg/dL POC Glucose (mg/dL) 196 H 188 H (75-99) mg/dL 09/23/18 09/23/18 Range/Units 08:18 11:57 RBC (3.80-5.40) m/uL Hgb (11.4-16.0) gm/dL Hct (34.0-46.0) % Neutrophils # (1.3-7.7) k/uL Lymphocytes # (1.0-4.8) k/uL Carbon Dioxide 32 H (22-30) mmol/L BUN 25 H (7-17) mg/dL Creatinine 0.48 L (0.52-1.04) mg/dL Glucose 208 H (74-99) mg/dL POC Glucose (mg/dL) 160 H (75-99) mg/dL Microbiology - Last 24 Hours (Table) 09/19/18 19:19 Blood Culture - Preliminary Blood No Growth after 72 hours Assessment and Plan Plan: Assessment: 1 acute COPD exacerbation 2 acute hypoxic respiratory failure secondary to above 3 acute on top of chronic hypercapnic respiratory failure with severe respiratory acidosis at time of admission, improved with use of BiPAP and the follow-up asbestosis showed improvement 4 polycythemia secondary to chronic hypoxemia 5 hypertension 6 diabetes mellitus 7 smoker 8 hyperlipidemia Plan: Patient is stable from pulmonary perspective, significantly improved, less dyspneic, less bronchospastic, FiO2 down to 3 L, and did qualify for home oxygen, 86% on room air. Patient is stable for discharge home today on the oral course of prednisone, antibiotics, patient has a nebulizer machine at home, she can continue nebulized treatments. Follow up Dr. Alansi in the office in 7-10 days I performed a history & physical examination of the patient and discussed their management with my nurse practitioner, Freda Cheng. I reviewed the nurse practitioner's note and agree with the documented findings and plan of care. Lung sounds are positive for end-exp wheezes throughout the lung figueredo. The findings and the impression was discussed with the patient. I attest to the documentation by the nurse practitioner. Time with Patient: Less than 30
== END 2018-09-23 14:57 | disposition home or self-care (01) | DRG 189 ==
LOC: EC 18:54 → 3SCARD 21:02 → 2SICU 09-20 07:57 → 4MS4W 09-22 18:12
PROVIDERS: ADMIT Hospitalist; ATTEND Hospitalist
DX: J96.21 Acute and chronic respiratory failure with hypoxia (principal); J44.1 Chronic obstructive pulmonary disease with (acute) exacerbation; E87.2 Acidosis; J96.22 Acute and chronic respiratory failure with hypercapnia; E78.5 Hyperlipidemia, unspecified; D75.1 Secondary polycythemia; I10 Essential (primary) hypertension; E11.9 Type 2 diabetes mellitus without complications; G89.29 Other chronic pain; M54.2 Cervicalgia; M54.9 Dorsalgia, unspecified; F11.10 Opioid abuse, uncomplicated; F17.210 Nicotine dependence, cigarettes, uncomplicated; Z90.49 Acquired absence of other specified parts of digestive tract; Z79.84 Long term (current) use of oral hypoglycemic drugs; Z79.899 Other long term (current) drug therapy; Z98.42 Cataract extraction status, left eye; Z98.41 Cataract extraction status, right eye; Z96.1 Presence of intraocular lens; Z82.49 Family history of ischemic heart disease and other diseases of the circulatory system
CPT/HCPCS: 36415; 36600; 51701; 70450; 71045; 80048; 80053; 81001; 82803; 82805; 83605; 83735; 83880; 84484; 85025; 85610; 85730; 87040; 87502; 93005; 94640; 94660; 96365; 96366; 96367; 96375; 96376; 99291

== ENCOUNTER 2019-03-07 10:54 | Inpatient (IN) | payer BC ==
[2019-03-07] MEDS ORDERED: ONDANSETRON 4 MG/2 ML VIAL IVP STA (11:21)
[2019-03-07] MEDS ORDERED: ALBUTEROL NEBULIZED 2.5 MG/3 ML INHALATION STA (11:21)
[2019-03-07] MEDS ORDERED: methylPREDNISolone SOD SUCCI 125 MG/2 ML VIAL IV STA (11:21)
[2019-03-07] MEDS ORDERED: AZITHROMYCIN 500 MG in SODIUM CHLORIDE 0.9% 250 ML IVPB STA (11:21)
[2019-03-07] MEDS ORDERED: SODIUM CHLORIDE 0.9% 1,000 ML IV STA ×2 (11:21)
--- NOTE | 2019-03-07 11:35 | XR ---
EXAMINATION TYPE: XR chest 1V portable DATE OF EXAM: 03/07/2019 HISTORY: sob. REFERENCE: Previous study dated 09/19/2018. FINDINGS: The heart is enlarged. There is right basilar airspace disease either representing atelecta sis or pneumonia. There is minimal blunting of both CP angles. I could not exclude trace effusions. IMPRESSION: 1. CARDIOMEGALY. 2. RIGHT BASILAR AIRSPACE DISEASE. 3. I COULD NOT EXCLUDE TRACE EFFUSIONS BILATERALLY.
[2019-03-07 11:36] LABS: VBG PH 7.29 (7.31-7.41)
--- NOTE | 2019-03-07 11:43 | ED ---
SOB HPI - General Chief Complaint: Altered Mental Status Stated Complaint: Pneumonia Time Seen by Provider: 03/07/19 11:08 Source: EMS, RN notes reviewed, old records reviewed Mode of arrival: EMS Limitations: altered mental status - History of Present Illness Initial Comments: This is a 63-year-old female the ER for evaluation patient was essay for dara luation of severe shortness of breath. This is a patient with severe COPD on O2. PAtient coming to ED with severe SOB and unable to provide any history currently. History obtained from EMS and patient's family, patient's is at bedside states 2 days worsening shortness of breath and altered mental status today. He is also noticed positive fever. No recent hospitalizations. No recent travel history or known sick contacts MD Complaint: shortness of breath, cough -: days(s) Severity: moderate Severity scale (1-10): 4 Quality: dull Consistency: constant Improves With: oxygen Worsens With: exertion, coughing Known History Of: COPD, asthma Context: recent URI Associated Symptoms: chest pain, pain with inspiration, fever, cough, sputum production Treatments Prior to Arrival: oxygen, bronchodilator - Related Data Home Medications Medication Instructions Recorded Confirmed Atorvastatin [Lipitor] 20 mg PO DAILY 06/05/18 03/07/19 Buprenorphine HCl [Subutex] 8 mg SL TID 06/05/18 03/07/19 Cholecalciferol [Vitamin D3 (25 4,000 unit PO DAILY 06/05/18 03/07/19 Mcg = 1000 Iu)] Rena Lara-3 Fatty Acids [Rena Lara-3] 1,000 mg PO BID 06/05/18 03/07/19 metFORMIN HCL 500 mg PO DAILY 06/05/18 03/07/19 Ipratropium-Albuterol Nebulize 3 ml INHALATION RT-QID PRN 03/07/19 03/07/19 [Duoneb 0.5 mg-3 mg/3 ml Soln] Losartan/Hydrochlorothiazide 1 tab PO DAILY 03/07/19 03/07/19 [Losartan-Hctz 100-12.5 mg Tab] Allergies Allergy/AdvReac Type Severity Reaction Status Date / Time No Known Allergies Allergy Verified 03/07/19 11:13 Review of Systems ROS Statement: Those systems with pertinent positive or pertinent negative responses have been documented in the HPI. ROS Other: All systems not noted in ROS Statement are negative. Past Medical History Past Medical History: Diabetes Mellitus, Hyperlipidemia, Hypertension Additional Past Medical History / Comment(s): Chronic back and neck pain, NIDDM type II. History of Any Multi-Drug Resistant Organisms: None Reported Past Surgical History: Cholecystectomy Additional Past Surgical History / Comment(s): Bilateral cataract removals/lens implants. Past Anesthesia/Blood Transfusion Reactions: No Reported Reaction Past Psychological History: No Psychological Hx Reported Smoking Status: Current every day smoker Past Alcohol Use History: None Reported Past Drug Use History: None Reported - Past Family History Father Family Medical History: Coronary Artery Disease (CAD) Additional Family Medical History / Comment(s): Father had CABG. He in his 70s. Mother Family Medical History: No Reported History Additional Family Medical History / Comment(s): Mother was healthy and lived to be 92 yrs old. General Exam Limitations: no limitations General appearance: alert, lethargic, in distress Head exam: Present: atraumatic, normocephalic, normal inspection Eye exam: Present: normal appearance, EOMI. Absent: scleral icterus, conjunctival injection, periorbital swelling ENT exam: Present: normal exam, mucous membranes moist Neck exam: Present: normal inspection. Absent: tenderness, meningismus, lymphadenopathy Respiratory exam: Present: respiratory distress, wheezes, accessory muscle use, decreased breath sounds, prolonged expiratory. Absent: rales, rhonchi, stridor Cardiovascular Exam: Present: normal rhythm, tachycardia, normal heart sounds. Absent: systolic murmur, diastolic murmur, rubs, gallop, clicks GI/Abdominal exam: Present: soft, normal bowel sounds. Absent: distended, tenderness, guarding, rebound, rigid Extremities exam: Present: normal inspection, full ROM, normal capillary refill. Absent: tenderness, pedal edema, joint swelling, calf tenderness Back exam: Present: normal inspection Neurological exam: Present: alert, oriented X3, CN II-XII intact Psychiatric exam: Present: normal affect, normal mood Skin exam: Present: warm, dry, intact, normal color. Absent: rash Course Vital Signs 03/07/19 03/07/19 03/07/19 11:01 11:15 11:32 Temperature 100.0 F H Pulse Rate 101 H 98 Respiratory 18 24 24 Rate Blood Pressure 135/63 116/59 O2 Sat by Pulse 93 L 93 L Oximetry 03/07/19 03/07/19 03/07/19 11:37 11:51 11:52 Temperature Pulse Rate 97 96 96 Respiratory 20 Rate Blood Pressure 116/59 O2 Sat by Pulse 97 Oximetry 03/07/19 03/07/19 12:08 12:25 Temperature Pulse Rate 97 111 H Respiratory 18 Rate Blood Pressure 125/58 O2 Sat by Pulse 96 Oximetry - Reevaluation(s) Reevaluation #1: 03/07/19 12:20 Medical record is reviewed Reevaluation #2: 03/07/19 12:20 Patient placed on BiPAP awake and improving Reevaluation #3: 03/07/19 13:08 Patient still having significant shortness of breath - Consultations Consultation #1: Spoke with Dr. Ryan who is agreeable for admission Medical Decision Making - Medical Decision Making 61 female the ER for evaluation of significant shortness of breath, patient having severe COPD exacerbation and hypoxia, will admit for continued breathing treatments and cardiopulmonary monitoring, patient will continue on BiPAP until her breathing and work of breathing has improved - Lab Data Result diagrams: 03/07/19 11:18 03/07/19 11:18 Lab Results 03/07/19 03/07/19 03/07/19 Range/Units 11:18 11:18 11:18 WBC 7.4 (3.8-10.6) k/uL RBC 4.59 (3.80-5.40) m/uL Hgb 14.5 (11.4-16.0) gm/dL Hct 44.7 (34.0-46.0) % MCV 97.4 (80.0-100.0) fL MCH 31.5 (25.0-35.0) pg MCHC 32.4 (31.0-37.0) g/dL RDW 15.6 H (11.5-15.5) % Plt Count 129 L (150-450) k/uL Neutrophils % 86 % Lymphocytes % 5 % Monocytes % 5 % Eosinophils % 1 % Basophils % 2 % Neutrophils # 6.3 (1.3-7.7) k/uL Lymphocytes # 0.3 L (1.0-4.8) k/uL Monocytes # 0.4 (0-1.0) k/uL Eosinophils # 0.1 (0-0.7) k/uL Basophils # 0.2 (0-0.2) k/uL PT (9.0-12.0) sec INR (<1.2) APTT (22.0-30.0) sec VBG pH 7.29 L (7.31-7.41) VBG pCO2 61 H (37-51) mmHg VBG HCO3 28 (24-28) mmol/L Sodium 139 (137-145) mmol/L Potassium 3.9 (3.5-5.1) mmol/L Chloride 102 (98-107) mmol/L Carbon Dioxide 29 (22-30) mmol/L Anion Gap 8 mmol/L BUN 22 H (7-17) mg/dL Creatinine 0.54 (0.52-1.04) mg/dL Est GFR (CKD-EPI)AfAm >90 (>60 ml/min/1.73 sqM) Est GFR (CKD-EPI)NonAf >90 (>60 ml/min/1.73 sqM) Glucose 107 H (74-99) mg/dL Plasma Lactic Acid Darvin (0.7-2.0) mmol/L Calcium 8.5 (8.4-10.2) mg/dL Magnesium 1.9 (1.6-2.3) mg/dL Total Bilirubin 0.9 (0.2-1.3) mg/dL AST 23 (14-36) U/L ALT 24 (9-52) U/L Alkaline Phosphatase 68 (38-126) U/L Creatine Kinase 34 (30-135) U/L Troponin I (0.000-0.034) ng/mL NT-Pro-B Natriuret Pep pg/mL Total Protein 6.3 (6.3-8.2) g/dL Albumin 3.7 (3.5-5.0) g/dL Influenza Type A RNA (Not Detectd) Influenza Type B (PCR) (Not Detectd) 03/07/19 03/07/19 03/07/19 Range/Units 11:18 11:18 11:18 WBC (3.8-10.6) k/uL RBC (3.80-5.40) m/uL Hgb (11.4-16.0) gm/dL Hct (34.0-46.0) % MCV (80.0-100.0) fL MCH (25.0-35.0) pg MCHC (31.0-37.0) g/dL RDW (11.5-15.5) % Plt Count (150-450) k/uL Neutrophils % % Lymphocytes % % Monocytes % % Eosinophils % % Basophils % % Neutrophils # (1.3-7.7) k/uL Lymphocytes # (1.0-4.8) k/uL Monocytes # (0-1.0) k/uL Eosinophils # (0-0.7) k/uL Basophils # (0-0.2) k/uL PT 11.2 (9.0-12.0) sec INR 1.1 (<1.2) APTT 26.9 (22.0-30.0) sec VBG pH (7.31-7.41) VBG pCO2 (37-51) mmHg VBG HCO3 (24-28) mmol/L Sodium (137-145) mmol/L Potassium (3.5-5.1) mmol/L Chloride (98-107) mmol/L Carbon Dioxide (22-30) mmol/L Anion Gap mmol/L BUN (7-17) mg/dL Creatinine (0.52-1.04) mg/dL Est GFR (CKD-EPI)AfAm (>60 ml/min/1.73 sqM) Est GFR (CKD-EPI)NonAf (>60 ml/min/1.73 sqM) Glucose (74-99) mg/dL Plasma Lactic Acid Darvin (0.7-2.0) mmol/L Calcium (8.4-10.2) mg/dL Magnesium (1.6-2.3) mg/dL Total Bilirubin (0.2-1.3) mg/dL AST (14-36) U/L ALT (9-52) U/L Alkaline Phosphatase (38-126) U/L Creatine Kinase (30-135) U/L Troponin I <0.012 (0.000-0.034) ng/mL NT-Pro-B Natriuret Pep 212 pg/mL Total Protein (6.3-8.2) g/dL Albumin (3.5-5.0) g/dL Influenza Type A RNA (Not Detectd) Influenza Type B (PCR) (Not Detectd) 03/07/19 03/07/19 Range/Units 11:18 11:39 WBC (3.8-10.6) k/uL RBC (3.80-5.40) m/uL Hgb (11.4-16.0) gm/dL Hct (34.0-46.0) % MCV (80.0-100.0) fL MCH (25.0-35.0) pg MCHC (31.0-37.0) g/dL RDW (11.5-15.5) % Plt Count (150-450) k/uL Neutrophils % % Lymphocytes % % Monocytes % % Eosinophils % % Basophils % % Neutrophils # (1.3-7.7) k/uL Lymphocytes # (1.0-4.8) k/uL Monocytes # (0-1.0) k/uL Eosinophils # (0-0.7) k/uL Basophils # (0-0.2) k/uL PT (9.0-12.0) sec INR (<1.2) APTT (22.0-30.0) sec VBG pH (7.31-7.41) VBG pCO2 (37-51) mmHg VBG HCO3 (24-28) mmol/L Sodium (137-145) mmol/L Potassium (3.5-5.1) mmol/L Chloride (98-107) mmol/L Carbon Dioxide (22-30) mmol/L Anion Gap mmol/L BUN (7-17) mg/dL Creatinine (0.52-1.04) mg/dL Est GFR (CKD-EPI)AfAm (>60 ml/min/1.73 sqM) Est GFR (CKD-EPI)NonAf (>60 ml/min/1.73 sqM) Glucose (74-99) mg/dL Plasma Lactic Acid Darvin 0.7 (0.7-2.0) mmol/L Calcium (8.4-10.2) mg/dL Magnesium (1.6-2.3) mg/dL Total Bilirubin (0.2-1.3) mg/dL AST (14-36) U/L ALT (9-52) U/L Alkaline Phosphatase (38-126) U/L Creatine Kinase (30-135) U/L Troponin I (0.000-0.034) ng/mL NT-Pro-B Natriuret Pep pg/mL Total Protein (6.3-8.2) g/dL Albumin (3.5-5.0) g/dL Influenza Type A RNA Not Detected (Not Detectd) Influenza Type B (PCR) Not Detected (Not Detectd) - EKG Data -: EKG Interpreted by Me (EKG shows sinus rhythm rate of 100, UT 208, QRS 60, QTc 446) - Radiology Data Radiology results: report reviewed (Chest x-ray is limited is one view but is negative for acute disease), image reviewed Critical Care Time Critical Care Time: Yes Total Critical Care Time: 31 Disposition Clinical Impression: Altered mental status, Fever, Acute exacerbation of COPD with asthma, Acute respiratory failure Disposition: ADMITTED IP TO THIS [facility] Condition: Serious Is patient prescribed a controlled substance at d/c from ED?: No Referrals: Ken Ham DO [Primary Care Provider] - 1-2 days
[2019-03-07 11:47] LABS: Basophils # (A) 0.2 k/uL (0-0.2); Basophils % (A) 2 %; Eosinophils # (A) 0.1 k/uL (0-0.7); Eosinophils % (A) 1 %; HCT 44.7 % (34.0-46.0); HGB 14.5 gm/dL (11.4-16.0); Lymphocytes # (A) 0.3 k/uL (1.0-4.8); Lymphocytes % (A) 5 %; MCH 31.5 pg (25.0-35.0); MCHC 32.4 g/dL (31.0-37.0); MCV 97.4 fL (80.0-100.0); Monocytes # (A) 0.4 k/uL (0-1.0); Monocytes % (A) 5 %; Neutrophils # (A) 6.3 k/uL (1.3-7.7); Neutrophils % (A) 86 %; Platelet Count 129 k/uL (150-450); RBC 4.59 m/uL (3.80-5.40); RDW 15.6 % (11.5-15.5); WBC 7.4 k/uL (3.8-10.6)
[2019-03-07 11:49] LABS: INR 1.1 (<1.2)
[2019-03-07 11:50] LABS: Partial Thromboplastin Time 26.9 sec (22.0-30.0); Prothrombin Time 11.2 sec (9.0-12.0)
[2019-03-07 12:01] LABS: ALT 24 U/L (9-52); AST 23 U/L (14-36); African American GFR (CKD) >90 (>60 ml/min/1.73 sqM); Albumin 3.7 g/dL (3.5-5.0); Alkaline Phosphatase 68 U/L (38-126); Anion Gap 8 mmol/L; Blood Urea Nitrogen 22 mg/dL (7-17); Calcium 8.5 mg/dL (8.4-10.2); Carbon Dioxide 29 mmol/L (22-30); Chloride 102 mmol/L (98-107); Creatine Kinase 34 U/L (30-135); Glucose 107 mg/dL (74-99); Magnesium 1.9 mg/dL (1.6-2.3); Potassium 3.9 mmol/L (3.5-5.1); Sodium 139 mmol/L (137-145); Total Bilirubin 0.9 mg/dL (0.2-1.3); Total Protein 6.3 g/dL (6.3-8.2)
[2019-03-07] MEDS ORDERED: IBUPROFEN 800 MG TAB PO STA (12:50)
[2019-03-07] MEDS ORDERED: ACETAMINOPHEN TAB 500 MG TAB PO STA (12:50)
[2019-03-07] MEDS ORDERED: ALBUTEROL NEBULIZED 2.5 MG/3 ML INHALATION PRN (13:05)
[2019-03-07] MEDS ORDERED: PNEUMONIA PROTOCOL UTILIZED 1 EACH MISC PO PRN (13:05)
[2019-03-07] MEDS ORDERED: cefTRIAXone IN SWFI 1,000 MG/10 ML SYRINGE IVP STA (13:08)
[2019-03-07 13:25] LABS: Appearance,Urine Cloudy (Clear); Bacteria,Urine Rare /hpf; Bilirubin,Urine Negative (Negative); Blood,Urine Negative (Negative); Color,Urine Yellow; Glucose,Urine (UA) Negative (Negative); Ketones,Urine 2+ (Negative); Leukocyte Esterase,Urine Small (Negative); Mucus,Urine Rare /hpf; Nitrite,Urine Negative (Negative); Protein,Urine Trace (Negative); RBC,Urine 1 /hpf (0-5); Specific Gravity,Urine 1.021 (1.001-1.035); Squamous Epithelial Cell,Urine 26 /hpf (0-4); Urobilinogen,Urine <2.0 mg/dL (<2.0)
[2019-03-07] MEDS ORDERED: IBUPROFEN IV 800 MG in SODIUM CHLORIDE 0.9% 250 ML IV ONE (13:30)
[2019-03-07] MEDS ORDERED: NALOXONE 0.4 MG/ML 1 ML VIAL IV PRN (14:38)
[2019-03-07] MEDS ORDERED: IPRATROPIUM-ALBUTEROL 3 ML NEB INHALATION STA (14:38)
[2019-03-07] MEDS ORDERED: MORPHINE SULFATE 2 MG/ML SYRINGE IV PRN (14:38)
[2019-03-07] MEDS ORDERED: SODIUM CHLORIDE 0.9% 1,000 ML IV ONE ×2 (14:42→14:51)
--- NOTE | 2019-03-07 15:09 | XR ---
EXAMINATION TYPE: XR chest 1V portable DATE OF EXAM: 03/07/2019 COMPARISON: Today HISTORY: Short of breath TECHNIQUE: Single frontal view of the chest is obtained. FINDINGS: There is no heart failure nor confluent pneumonic infiltrate. Heart appears slightly enlar ged. Her chest leads. IMPRESSION: No active cardiopulmonary disease. There is probably cardiomegaly. There is clearing of mild pulmonary congestion compared to exam earlier today.
[2019-03-07] MEDS: IPRATROPIUM-ALBUTEROL 3 ML NEB INHALATION SCH ×3 (16:10→21:30)
[2019-03-07 17:59] VITALS: BMI 32.6
[2019-03-07] MEDS: SODIUM CHLORIDE 0.9% 1,000 ML IV SCH (18:06)
[2019-03-07 18:35] LABS: Glucose,Whole Blood 167 mg/dL (75-99)
[2019-03-07] MEDS: INSULIN ASPART (NovoLOG) 100 UNIT/ML VIAL SQ SCH ×2 (18:37→21:49)
[2019-03-07] MEDS: methylPREDNISolone SOD SUCCI 125 MG/2 ML VIAL IV SCH (18:37)
[2019-03-07 21:14] LABS: Glucose,Whole Blood 161 mg/dL (75-99)
[2019-03-08] MEDS ORDERED: MORPHINE SULFATE 2 MG/ML SYRINGE IV PRN (00:03)
--- NOTE | 2019-03-08 00:17 | P.HPIM ---
History of Present Illness H&P Date: 03/07/19 Chief Complaint: Shortness of breath Patient is a 63-year-old female with a known history of hypertension, diabetes type 2 [id number], COPD/asthma, nicotine addiction ongoing, chronic back pain and currently on Suboxone came to ER with complaints of worsening shor tness of breath and altered mental status. Worsening since yesterday.. Patient is on home oxygen currently. Does have a history of severe COPD. Currently patient was placed on BiPAP patient unable to provide any history. Most of the history was taken from the ER note and her at the bedside. Temperature of 100.1 on admission and tachycardia. Was on 6 L via nasal cannula. Patient was placed on BiPAP in the ER. Denied any chest pain. Patient does have cough with sputum production. No recent illnesses otherwise. No sick contacts at home. Chest x-ray showed cardiomegaly. Right basilar airspace disease. Trace effusions bilaterally could not be excluded. Influenza A and B- Review of Systems Review of systems could not be obtained from the patient Past Medical History Past Medical History: Diabetes Mellitus, Hyperlipidemia, Hypertension Additional Past Medical History / Comment(s): Chronic back and neck pain, NIDDM type II. History of Any Multi-Drug Resistant Organisms: None Reported Past Surgical History: Cholecystectomy Additional Past Surgical History / Comment(s): Bilateral cataract removals/lens implants. Past Anesthesia/Blood Transfusion Reactions: No Reported Reaction Past Psychological History: No Psychological Hx Reported Additional Psychological History / Comment(s): Pt resides with her spouse. She is independent. Smoking Status: Current every day smoker Past Alcohol Use History: None Reported Additional Past Alcohol Use History / Comment(s): Pt started smoking in 1974 and is a half a ppd smoker. Past Drug Use History: None Reported Additional Drug Use History / Comment(s): Pt has hx of opiod abuse but has not for 8-10 years. She is on subutex - Past Family History Father Family Medical History: Coronary Artery Disease (CAD) Additional Family Medical History / Comment(s): Father had CABG. He in his 70s. Mother Family Medical History: No Reported History Additional Family Medical History / Comment(s): Mother was healthy and lived to be 92 yrs old. Medications and Allergies Home Medications Medication Instructions Recorded Confirmed Type Atorvastatin [Lipitor] 20 mg PO DAILY 06/05/18 03/07/19 History Buprenorphine HCl [Subutex] 8 mg SL TID 06/05/18 03/07/19 History Cholecalciferol [Vitamin D3 (25 4,000 unit PO DAILY 06/05/18 03/07/19 History Mcg = 1000 Iu)] Nada-3 Fatty Acids [Nada-3] 1,000 mg PO BID 06/05/18 03/07/19 History metFORMIN HCL 500 mg PO DAILY 06/05/18 03/07/19 History Ipratropium-Albuterol Nebulize 3 ml INHALATION RT-QID PRN 03/07/19 03/07/19 History [Duoneb 0.5 mg-3 mg/3 ml Soln] Losartan/Hydrochlorothiazide 1 tab PO DAILY 03/07/19 03/07/19 History [Losartan-Hctz 100-12.5 mg Tab] Allergies Allergy/AdvReac Type Severity Reaction Status Date / Time No Known Allergies Allergy Verified 03/07/19 11:13 Physical Exam Vitals: Vital Signs Temp Pulse Pulse Resp BP BP Pulse Ox 03/07/19 16:41 98.5 F 82 18 90/43 91 L 03/07/19 16:24 84 03/07/19 16:12 82 03/07/19 16:00 90 18 101/54 90 L 03/07/19 15:07 87 22 127/63 95 03/07/19 14:39 98.5 F 86 22 91/45 90 L 03/07/19 14:29 87 22 86/43 91 L 03/07/19 14:17 97.6 F 80 16 93/52 94 L 03/07/19 13:14 112 H 13 132/62 92 L 03/07/19 12:25 111 H 18 125/58 96 03/07/19 12:08 97 03/07/19 11:52 96 03/07/19 11:51 96 20 116/59 97 03/07/19 11:37 97 03/07/19 11:32 98 24 116/59 93 L 03/07/19 11:15 24 03/07/19 11:01 100.0 F H 101 H 18 135/63 93 L Intake and Output 03/07/19 03/07/19 03/07/19 06:59 14:59 22:59 Other: Weight 77.111 kg PHYSICAL EXAMINATION: Patient is lying in the bed comfortably, no acute distress on BiPAP. Patient is otherwise lethargic and confused... HEENT: Normocephalic. Neck is supple. Pupils reactive. Nostrils clear. Oral cavity is moist. Ears reveal no drainage. Neck reveals no JVD, carotid bruits, or thyromegaly. CHEST EXAMINATION: Trachea is central. Symmetrical expansion. Bilateral diminished air entry. Scattered rhonchi.. CARDIAC: Normal S1, S2 with no gallops. No murmurs ABDOMEN: Soft. Bowel sounds normal. No organomegaly. No abdominal bruits. Extremities: reveal no edema. No clubbing or cyanosis Neurologically awake, alert but confused and lethargic. Able to move her extremities while in bed.. No focal deficits noted Skin: No rash or skin lesions. Psychiatric: Could not be assessed at this. Musculoskeletal: No joint swelling or deformity. Normal range of motion. Results CBC & Chem 7: 03/07/19 11:18 03/07/19 11:18 Labs: Abnormal Lab Results - Last 24 Hours (Table) 03/07/19 03/07/19 03/07/19 Range/Units 11:18 11:18 11:18 RDW 15.6 H (11.5-15.5) % Plt Count 129 L (150-450) k/uL Lymphocytes # 0.3 L (1.0-4.8) k/uL VBG pH 7.29 L (7.31-7.41) VBG pCO2 61 H (37-51) mmHg BUN 22 H (7-17) mg/dL Glucose 107 H (74-99) mg/dL Urine Appearance (Clear) Urine Protein (Negative) Urine Ketones (Negative) Ur Leukocyte Esterase (Negative) Ur Squamous Epith Cells (0-4) /hpf Urine Bacteria (None) /hpf Urine Mucus (None) /hpf 03/07/19 Range/Units Unknown RDW (11.5-15.5) % Plt Count (150-450) k/uL Lymphocytes # (1.0-4.8) k/uL VBG pH (7.31-7.41) VBG pCO2 (37-51) mmHg BUN (7-17) mg/dL Glucose (74-99) mg/dL Urine Appearance Cloudy H (Clear) Urine Protein Trace H (Negative) Urine Ketones 2+ H (Negative) Ur Leukocyte Esterase Small H (Negative) Ur Squamous Epith Cells 26 H (0-4) /hpf Urine Bacteria Rare H (None) /hpf Urine Mucus Rare H (None) /hpf Thrombosis Risk Factor Assmnt - DVT/VTE Prophylaxis DVT/VTE Prophylaxis: Pharmacologic Prophylaxis ordered - Choose All That Apply Each Factor Represents 1 point: Medical pt on bed rest Each Risk Factor Represents 2 Points: Age 61-74 years Thrombosis Risk Factor Assessment Total Risk Factor Score: 3 Thrombosis Risk Factor Assessment Level: Moderate Risk Assessment and Plan Assessment: Altered mental status due to metabolic encephalopathy Acute severe COPD exacerbation with tracheobronchitis Acute on chronic hypoxic respiratory failure. Requiring BiPAP. Possible right basilar pneumonia. Diabetes type 2 non insulin-dependent Hypertension Hyperlipidemia Chronic back pain and neck pain. History of opiate abuse. On Suboxone on at home Ongoing nicotine addiction DVT prophylaxis with Lovenox. Plan: Patient will be continued on BiPAP currently. Patient will be continued on IV Solu-Medrol 60 mg every 6 hourly along with duo nebs. Continue with antibiotics in the form of ceftriaxone and azithromycin. Blood pressure medications will be held at this time. Continue with insulin sliding scale. Continue pain management and follow up closely. Pulmonary was consulted for evaluation. Further recommendations based on the clinical course. Discussed with her at bedside in detail. Time with Patient: Greater than 30
[2019-03-08] MEDS: methylPREDNISolone SOD SUCCI 125 MG/2 ML VIAL IV SCH ×4 (00:33→17:10)
[2019-03-08] MEDS: SODIUM CHLORIDE 0.9% 1,000 ML IV SCH ×3 (00:33→20:39)
[2019-03-08 06:10] LABS: Basophils % (A) 0 %; Eosinophils # (A) 0.1 k/uL (0-0.7); Eosinophils % (A) 1 %; HCT 41.7 % (34.0-46.0); HGB 13.4 gm/dL (11.4-16.0); Lymphocytes # (A) 0.5 k/uL (1.0-4.8); Lymphocytes % (A) 5 %; MCH 31.7 pg (25.0-35.0); MCHC 32.2 g/dL (31.0-37.0); MCV 98.2 fL (80.0-100.0); Monocytes # (A) 0.1 k/uL (0-1.0); Monocytes % (A) 2 %; Neutrophils % (A) 92 %; Platelet Count 117 k/uL (150-450); RBC 4.24 m/uL (3.80-5.40); RDW 15.1 % (11.5-15.5); WBC 8.7 k/uL (3.8-10.6)
[2019-03-08 06:22] LABS: Glucose,Whole Blood 134 mg/dL (75-99)
[2019-03-08] MEDS: INSULIN ASPART (NovoLOG) 100 UNIT/ML VIAL SQ SCH ×4 (06:28→21:59)
[2019-03-08 07:01] LABS: ALT 31 U/L (9-52); AST 27 U/L (14-36); African American GFR (CKD) >90 (>60 ml/min/1.73 sqM); Albumin 3.1 g/dL (3.5-5.0); Alkaline Phosphatase 66 U/L (38-126); Anion Gap 6 mmol/L; Blood Urea Nitrogen 18 mg/dL (7-17); Calcium 7.7 mg/dL (8.4-10.2); Carbon Dioxide 24 mmol/L (22-30); Chloride 108 mmol/L (98-107); Glucose 142 mg/dL (74-99); Magnesium 2.1 mg/dL (1.6-2.3); Phosphorus 2.4 mg/dL (2.5-4.5); Potassium 4.2 mmol/L (3.5-5.1); Sodium 138 mmol/L (137-145); Total Bilirubin 0.4 mg/dL (0.2-1.3); Total Protein 5.6 g/dL (6.3-8.2)
[2019-03-08] MEDS: IPRATROPIUM-ALBUTEROL 3 ML NEB INHALATION SCH ×4 (07:42→20:06)
[2019-03-08] MEDS: ENOXAPARIN 40 MG/0.4 ML SYRINGE SQ SCH (09:31)
--- NOTE | 2019-03-08 10:37 | XR ---
EXAMINATION TYPE: XR chest 1V DATE OF EXAM: 03/08/2019 COMPARISON: 03/07/2019 INDICATION: COPD, pneumonia TECHNIQUE: Single frontal view of the chest is obtained. FINDINGS: The heart size is normal. The pulmonary vasculature is normal. There is poor visualization the left diaphragm. Retrocardiac infiltration be considered. Mild right l ower lobe infiltrate may be present. Correlate for atelectasis or pneumonia. Follow-up 2 view chest c ould be performed as clinically indicated. IMPRESSION: 1. Retrocardiac and posterior medial right lower lobe infiltrates. Correlate for atelectasis or pneum onia. 2. Consider 2 view chest when the patient is stable.
[2019-03-08] MEDS ORDERED: VANCOMYCIN IV PER PHARMACY 1 EACH MISC MISCELLANE PRN (10:51)
[2019-03-08] MEDS ORDERED: VANCOMYCIN 1,500 MG in SODIUM CHLORIDE 0.9% 250 ML IVPB ONE (11:30)
[2019-03-08 11:41] LABS: Glucose,Whole Blood 133 mg/dL (75-99)
[2019-03-08] MEDS: AZITHROMYCIN 500 MG in SODIUM CHLORIDE 0.9% 250 ML IVPB SCH (15:48)
[2019-03-08 16:48] LABS: Glucose,Whole Blood 221 mg/dL (75-99)
--- NOTE | 2019-03-08 17:43 | P.CNPUL ---
History of Present Illness Consult date: 03/08/19 Reason for consult: COPD History of present illness: 63-year-old female patient presented to the hospital because of worsening shortness of breath and altered mentation is started 24 hours prior to her hospital visit. She has COPD which is severe and she has chronic hypoxic respiratory failure initially admitted on oxygen. She was quite short of breath with a temperature of 100.1 at time of admission along with that she was tachycardic and she was on 6 L about 2 by nasal cannula. In the ED, she denied having any chest pain. She had a cough without any significant pleurisy or hemoptysis. She was producing sputum. She was placed on BiPAP due to ongoing respiratory difficulties. Her chest x-ray showed cardiomegaly and a right basil ar air space disease. Influenza screen for influenza A and B were negative. The patient has comorbidities including diabetes mellitus, hypertension and she is a chronic smoker in she has chronic back pain and she is currently on Suboxone. For now, the patient a combination of Rocephin and Zithromax. The patient is receiving DuoNeb nebulized treatment [id number]. The patient is on IV Solu-Medrol. Vancomycin was also added. Note that there was a preliminary report on the blood cultures indicating gram-positive cocci which turned out to be a staph coagulase-negative and it is probably a contaminant. Her white cell count is at 8.7. The lactic acid level is within normal limits. Troponin first set was negative. BNP level was nonelevated. Review of Systems Constitutional: Patient denies any fever or chills . No generalized weakness or weight loss. Abdomen: Patient denied nausea vomiting and diarrhea and abdominal pain. Cardiovascular: Patient denies any chest pain or short of breath no palpitations. Respiratory: Cough without sputum production. Patient does have shortness of breath. Neurologic: Patient denied any numbness or tingling headache. Musculoskeletal: Patient denies any complaints of joint swelling or deformity. Skin: Negative, no wounds, no ulceration Psychiatric: Negative Endocrine: No heat or cold intolerance. No recent weight gain. Genitourinary: No dysuria or hematuria. All other 14 point ROS negative except the above Past Medical History Past Medical History: Diabetes Mellitus, Hyperlipidemia, Hypertension Additional Past Medical History / Comment(s): Chronic back and neck pain, NIDDM type II, COPD, chronic hypoxic and hypercapnic respiratory failure, polycythemia chronic secondary to hypoxic respiratory failure, diabetes mellitus, hyperlipidemia and smoker. History of Any Multi-Drug Resistant Organisms: None Reported Past Surgical History: Cholecystectomy Additional Past Surgical History / Comment(s): Bilateral cataract removals/lens implants. Past Anesthesia/Blood Transfusion Reactions: No Reported Reaction Past Psychological History: No Psychological Hx Reported Additional Psychological History / Comment(s): Pt resides with her spouse. She is independent. Smoking Status: Current every day smoker Past Alcohol Use History: None Reported Additional Past Alcohol Use History / Comment(s): Pt started smoking in 1974 and is a half a ppd smoker. Past Drug Use History: None Reported Additional Drug Use History / Comment(s): Pt has hx of opiod abuse but has not for 8-10 years. She is on subutex - Past Family History Father Family Medical History: Coronary Artery Disease (CAD) Additional Family Medical History / Comment(s): Father had CABG. He in his 70s. Mother Family Medical History: No Reported History Additional Family Medical History / Comment(s): Mother was healthy and lived to be 92 yrs old. Medications and Allergies Home Medications Medication Instructions Recorded Confirmed Type Atorvastatin [Lipitor] 20 mg PO DAILY 06/05/18 03/07/19 History Buprenorphine HCl [Subutex] 8 mg SL TID 06/05/18 03/07/19 History Cholecalciferol [Vitamin D3 (25 4,000 unit PO DAILY 06/05/18 03/07/19 History Mcg = 1000 Iu)] [place]-3 Fatty Acids [[place]-3] 1,000 mg PO BID 06/05/18 03/07/19 History metFORMIN HCL 500 mg PO DAILY 06/05/18 03/07/19 History Ipratropium-Albuterol Nebulize 3 ml INHALATION RT-QID PRN 03/07/19 03/07/19 History [Duoneb 0.5 mg-3 mg/3 ml Soln] Losartan/Hydrochlorothiazide 1 tab PO DAILY 03/07/19 03/07/19 History [Losartan-Hctz 100-12.5 mg Tab] Allergies Allergy/AdvReac Type Severity Reaction Status Date / Time No Known Allergies Allergy Verified 03/07/19 11:13 Physical Exam Vitals: Vital Signs Temp Pulse Pulse Resp BP BP Pulse Ox 03/08/19 16:47 80 03/08/19 16:37 82 03/08/19 16:00 16 03/08/19 15:57 95 03/08/19 15:25 97.3 F L 76 16 110/55 91 L 03/08/19 13:07 81 92 L 03/08/19 12:00 87 20 91 L 03/08/19 11:45 84 03/08/19 11:32 73 120/71 03/08/19 11:29 98.1 F 76 22 95/48 93 L 03/08/19 11:28 76 03/08/19 08:00 96.2 F L 72 80 16 118/65 91 L 03/08/19 07:42 72 03/08/19 03:34 96 03/08/19 03:30 97.2 F L 80 15 130/74 95 03/08/19 00:00 97.2 F L 64 12 104/63 91 L 03/07/19 21:45 76 03/07/19 21:31 88 L 03/07/19 21:30 80 03/07/19 20:00 97 F L 81 13 114/71 93 L Intake and Output 03/08/19 03/08/19 03/08/19 06:59 14:59 22:59 Intake Total 150 770 120 Output Total 450 300 Balance -300 470 120 Intake: IV 650 Sodium Chloride 0.9% 1, 400 000 ml @ 100 mls/hr IV . Q10H [facility] Rx#:[id number] Vancomycin 1,500 mg In 250 Sodium Chloride 0.9% 250 ml @ 125 mls/hr IVPB ONCE ONE Rx#:[id number] Oral 150 120 120 Output: Urine 450 300 Uretheral (Genao) 300 Other: Voiding Method Indwelling Catheter # Voids 1 0 Gen. appearance, comfortable likely distress. Not using accessory muscles of breathing. Head exam was generally normal. There was no scleral icterus or corneal arcus. Mucous membranes were moist. Neck was supple and without jugular venous distension, thyromegaly, or carotid bruits. Carotids were easily palpable bilaterally. There was no adenopathy. The patient has significant crowding of the posterior oropharynx and the patient has a Mallampati class IV Lung sounds are diminished bilaterally and there is diffuse expiratory wheezes throughout the lung figueredo. There is prolongation of the extremities of breathing. Cardiac exam revealed the PMI to be normally situated and sized. The rhythm was regular and no extrasystoles were noted during several minutes of auscultation. The first and second heart sounds were normal and physiologic splitting of the second heart sound was noted. There were no murmurs, rubs, clicks, or gallops. Abdominal exam revealed normal bowel sounds. The abdomen was soft, non-tender, and without masses, organomegaly, or appreciable enlargement of the abdominal aorta. Examination of the extremities revealed easily palpable radial, femoral and pedal pulses. There was no cyanosis, clubbing or edema. Examination of the skin revealed no evidence of significant rashes, suspicious appearing nevi or other concerning lesions. Neurologically awake and alert and there is no focal logical deficits. Results - Laboratory Findings CBC and BMP: 03/08/19 05:43 03/08/19 05:43 PT/INR, D-dimer PT 11.2 sec (9.0-12.0) 03/07/19 11:18 INR 1.1 (<1.2) 03/07/19 11:18 Abnormal lab findings: Abnormal Labs 03/07/19 03/07/19 03/07/19 11:18 11:18 11:18 RDW 15.6 H Plt Count 129 L Neutrophils # Lymphocytes # 0.3 L VBG pH 7.29 L VBG pCO2 61 H Chloride BUN 22 H Creatinine Glucose 107 H POC Glucose (mg/dL) Plasma Lactic Acid Darvin Calcium Phosphorus Total Protein Albumin Urine Appearance Urine Protein Urine Ketones Ur Leukocyte Esterase Ur Squamous Epith Cells Urine Bacteria Urine Mucus 03/07/19 03/07/19 03/07/19 18:19 21:13 Unknown RDW Plt Count Neutrophils # Lymphocytes # VBG pH VBG pCO2 Chloride BUN Creatinine Glucose POC Glucose (mg/dL) 167 H 161 H Plasma Lactic Acid Darvin Calcium Phosphorus Total Protein Albumin Urine Appearance Cloudy H Urine Protein Trace H Urine Ketones 2+ H Ur Leukocyte Esterase Small H Ur Squamous Epith Cells 26 H Urine Bacteria Rare H Urine Mucus Rare H 03/08/19 03/08/19 03/08/19 05:43 05:43 06:17 RDW Plt Count 117 L Neutrophils # 8.0 H Lymphocytes # 0.5 L VBG pH VBG pCO2 Chloride 108 H BUN 18 H Creatinine 0.39 L Glucose 142 H POC Glucose (mg/dL) 134 H Plasma Lactic Acid Darvin Calcium 7.7 L Phosphorus 2.4 L Total Protein 5.6 L Albumin 3.1 L Urine Appearance Urine Protein Urine Ketones Ur Leukocyte Esterase Ur Squamous Epith Cells Urine Bacteria Urine Mucus 03/08/19 03/08/19 03/08/19 11:34 11:38 16:47 RDW Plt Count Neutrophils # Lymphocytes # VBG pH VBG pCO2 Chloride BUN Creatinine Glucose POC Glucose (mg/dL) 133 H 221 H Plasma Lactic Acid Darvin 0.6 L Calcium Phosphorus Total Protein Albumin Urine Appearance Urine Protein Urine Ketones Ur Leukocyte Esterase Ur Squamous Epith Cells Urine Bacteria Urine Mucus - Diagnostic Findings Chest x-ray: image reviewed Assessment and Plan Plan: Assessment 1 acute COPD exacerbation, consider a right lower lobe pneumonia 2 acute hypoxic respiratory failure secondary to above 3 acute on top of chronic hypercapnic respiratory failure with severe respiratory acidosis at time of admission, improved with use of BiPAP and the follow-up asbestosis showed improvement 4 polycythemia secondary to chronic hypoxemia 5 hypertension 6 diabetes mellitus 7 smoker 8 hyperlipidemia 9 chronic smoker Plan Continue Rocephin and Zithromax. Continue DuoNeb nebulized treatments around the clock. Continue IV Solu Medrol. Blood cultures most likely a contaminant as the patient is is showing a coagulase-negative staph. May need to continue BiPAP on and off during the day as the patient is improving. Smoking cessation counseling was done. Patient already has home O2. We'll continue to follow make further recommendations as she will need outpatient follow-up regarding her COPD.
[2019-03-08] MEDS ORDERED: VANCOMYCIN 1,500 MG in SODIUM CHLORIDE 0.9% 250 ML IVPB SCH (20:00)
[2019-03-08] MEDS: BUDESONIDE 1 MG/2 ML NEBU INHALATION SCH (20:06)
[2019-03-08 21:18] LABS: Glucose,Whole Blood 189 mg/dL (75-99)
--- NOTE | 2019-03-09 00:40 | P.CONS ---
History of Present Illness - Reason for Consult Consult date: 03/08/19 Bacteremia Requesting physician: Jean Claude Hammond - Chief Complaint Shortness of breath and mental status changes x 2 days - History of Present Illness Patient is a 63-year-old female with past medical history significant for COPD home O2 dependent patient has been brought into the ER at [facility] yesterday she complains of increasing shortness of breath that apparently has been getting worse for the last 2 days patient also have a cough which has been moderate intensity and bring up some sputum not clear about the color patient denies any pleuritic chest pain did have some URI symptoms prior to her cough and congestion started and did have fever with some chills and mental status changes for the patient was brought into the ER by the EMS on arrival to the hospital the patient did have low-grade fever of 100F patient white count was normal the patient did have a chest x-ray today shows right lower lobe infiltrate suggestive of pneumonia the patient had been started on Rocephin and Zithromax and Solu-Medrol she did have blood culture done which came back positive with gram-positive cocci that prompted this infection disease consultation Review of Systems Positive points has been mentioned in HPI rest of the systems are negative Past Medical History Past Medical History: Diabetes Mellitus, Hyperlipidemia, Hypertension Additional Past Medical History / Comment(s): Chronic back and neck pain, NIDDM type II. History of Any Multi-Drug Resistant Organisms: None Reported Past Surgical History: Cholecystectomy Additional Past Surgical History / Comment(s): Bilateral cataract removals/lens implants. Past Anesthesia/Blood Transfusion Reactions: No Reported Reaction Past Psychological History: No Psychological Hx Reported Additional Psychological History / Comment(s): Pt resides with her spouse. She is independent. Smoking Status: Current every day smoker Past Alcohol Use History: None Reported Additional Past Alcohol Use History / Comment(s): Pt started smoking in 1974 and is a half a ppd smoker. Past Drug Use History: None Reported Additional Drug Use History / Comment(s): Pt has hx of opiod abuse but has not for 8-10 years. She is on subutex - Past Family History Father Family Medical History: Coronary Artery Disease (CAD) Additional Family Medical History / Comment(s): Father had CABG. He in his 70s. Mother Family Medical History: No Reported History Additional Family Medical History / Comment(s): Mother was healthy and lived to be 92 yrs old. Medications and Allergies Home Medications Medication Instructions Recorded Confirmed Type Atorvastatin [Lipitor] 20 mg PO DAILY 06/05/18 03/07/19 History Buprenorphine HCl [Subutex] 8 mg SL TID 06/05/18 03/07/19 History Cholecalciferol [Vitamin D3 (25 4,000 unit PO DAILY 06/05/18 03/07/19 History Mcg = 1000 Iu)] [place]-3 Fatty Acids [[place]-3] 1,000 mg PO BID 06/05/18 03/07/19 History metFORMIN HCL 500 mg PO DAILY 06/05/18 03/07/19 History Ipratropium-Albuterol Nebulize 3 ml INHALATION RT-QID PRN 03/07/19 03/07/19 History [Duoneb 0.5 mg-3 mg/3 ml Soln] Losartan/Hydrochlorothiazide 1 tab PO DAILY 03/07/19 03/07/19 History [Losartan-Hctz 100-12.5 mg Tab] Allergies Allergy/AdvReac Type Severity Reaction Status Date / Time No Known Allergies Allergy Verified 03/07/19 11:13 Physical Exam Vitals: Vital Signs Temp Pulse Pulse Resp BP BP BP 03/08/19 08:00 96.2 F L 72 80 16 118/65 03/08/19 07:42 72 03/08/19 03:34 03/08/19 03:30 97.2 F L 80 15 130/74 03/08/19 00:00 97.2 F L 64 12 104/63 03/07/19 21:45 76 03/07/19 21:31 03/07/19 21:30 80 03/07/19 20:00 97 F L 81 13 114/71 03/07/19 17:30 97.6 F 80 18 93/52 03/07/19 16:41 98.5 F 82 18 90/43 03/07/19 16:24 84 03/07/19 16:12 82 03/07/19 16:00 90 18 101/54 03/07/19 15:07 87 22 127/63 03/07/19 14:39 98.5 F 86 22 91/45 03/07/19 14:29 87 22 86/43 03/07/19 13:14 112 H 13 132/62 03/07/19 12:25 111 H 18 125/58 03/07/19 12:08 97 03/07/19 11:52 96 03/07/19 11:51 96 20 116/59 03/07/19 11:37 97 03/07/19 11:32 98 24 116/59 03/07/19 11:15 24 03/07/19 11:01 100.0 F H 101 H 18 135/63 Pulse Ox 03/08/19 08:00 91 L 03/08/19 07:42 03/08/19 03:34 96 03/08/19 03:30 95 03/08/19 00:00 91 L 03/07/19 21:45 03/07/19 21:31 88 L 03/07/19 21:30 03/07/19 20:00 93 L 03/07/19 17:30 94 L 03/07/19 16:41 91 L 03/07/19 16:24 03/07/19 16:12 03/07/19 16:00 90 L 03/07/19 15:07 95 03/07/19 14:39 90 L 03/07/19 14:29 91 L 03/07/19 13:14 92 L 03/07/19 12:25 96 03/07/19 12:08 03/07/19 11:52 03/07/19 11:51 97 03/07/19 11:37 03/07/19 11:32 93 L 03/07/19 11:15 03/07/19 11:01 93 L Intake and Output 03/07/19 03/08/19 03/08/19 22:59 06:59 14:59 Intake Total 300 150 Output Total 100 450 Balance 200 -300 Intake: Intake, IV Titration 300 Amount Sodium Chloride 0.9% 1, 300 000 ml @ 100 mls/hr IV . Q10H [facility] Rx#:[id number] Oral 150 Output: Urine 100 450 Other: # Voids 1 GENERAL DESCRIPTION: Middle-aged female lying in bed, no distress. No tachypnea or accessory muscle of respiration use. HEENT: Shows Pallor , no scleral icterus. Oral mucous membrane is dry. No pharyngeal erythema or thrush NECK: Trachea central, no thyromegaly. LUNGS: Unlabored breathing. Decreased breath sound at the base. No wheeze or crackle. HEART: S1, S2, regular rate and rhythm. No loud murmur ABDOMEN: Soft, no tenderness , guarding or rigidity, no organomegaly EXTREMITIES: No edema of feet. SKIN: No rash, no masses palpable. NEUROLOGICAL: The patient is awake, alert, oriented x3, mood and affect normal. Results CBC & Chem 7: 03/08/19 05:43 03/08/19 05:43 Labs: Abnormal Lab Results - Last 24 Hours (Table) 03/07/19 03/07/19 03/07/19 Range/Units 11:18 11:18 11:18 RDW 15.6 H (11.5-15.5) % Plt Count 129 L (150-450) k/uL Neutrophils # (1.3-7.7) k/uL Lymphocytes # 0.3 L (1.0-4.8) k/uL VBG pH 7.29 L (7.31-7.41) VBG pCO2 61 H (37-51) mmHg Chloride (98-107) mmol/L BUN 22 H (7-17) mg/dL Creatinine (0.52-1.04) mg/dL Glucose 107 H (74-99) mg/dL POC Glucose (mg/dL) (75-99) mg/dL Calcium (8.4-10.2) mg/dL Phosphorus (2.5-4.5) mg/dL Total Protein (6.3-8.2) g/dL Albumin (3.5-5.0) g/dL Urine Appearance (Clear) Urine Protein (Negative) Urine Ketones (Negative) Ur Leukocyte Esterase (Negative) Ur Squamous Epith Cells (0-4) /hpf Urine Bacteria (None) /hpf Urine Mucus (None) /hpf 03/07/19 03/07/19 03/07/19 Range/Units 18:19 21:13 Unknown RDW (11.5-15.5) % Plt Count (150-450) k/uL Neutrophils # (1.3-7.7) k/uL Lymphocytes # (1.0-4.8) k/uL VBG pH (7.31-7.41) VBG pCO2 (37-51) mmHg Chloride (98-107) mmol/L BUN (7-17) mg/dL Creatinine (0.52-1.04) mg/dL Glucose (74-99) mg/dL POC Glucose (mg/dL) 167 H 161 H (75-99) mg/dL Calcium (8.4-10.2) mg/dL Phosphorus (2.5-4.5) mg/dL Total Protein (6.3-8.2) g/dL Albumin (3.5-5.0) g/dL Urine Appearance Cloudy H (Clear) Urine Protein Trace H (Negative) Urine Ketones 2+ H (Negative) Ur Leukocyte Esterase Small H (Negative) Ur Squamous Epith Cells 26 H (0-4) /hpf Urine Bacteria Rare H (None) /hpf Urine Mucus Rare H (None) /hpf 03/08/19 03/08/19 03/08/19 Range/Units 05:43 05:43 06:17 RDW (11.5-15.5) % Plt Count 117 L (150-450) k/uL Neutrophils # 8.0 H (1.3-7.7) k/uL Lymphocytes # 0.5 L (1.0-4.8) k/uL VBG pH (7.31-7.41) VBG pCO2 (37-51) mmHg Chloride 108 H (98-107) mmol/L BUN 18 H (7-17) mg/dL Creatinine 0.39 L (0.52-1.04) mg/dL Glucose 142 H (74-99) mg/dL POC Glucose (mg/dL) 134 H (75-99) mg/dL Calcium 7.7 L (8.4-10.2) mg/dL Phosphorus 2.4 L (2.5-4.5) mg/dL Total Protein 5.6 L (6.3-8.2) g/dL Albumin 3.1 L (3.5-5.0) g/dL Urine Appearance (Clear) Urine Protein (Negative) Urine Ketones (Negative) Ur Leukocyte Esterase (Negative) Ur Squamous Epith Cells (0-4) /hpf Urine Bacteria (None) /hpf Urine Mucus (None) /hpf Microbiology - Last 24 Hours (Table) 03/07/19 11:39 Blood Culture Gram Stain - Preliminary Blood 03/07/19 11:39 Blood Culture - Final Blood Assessment and Plan Assessment: 1-patient with gram-positive bacteremia in this patient admitted to the hospital predominantly with respiratory symptoms of increasing shortness of breath and cough in this patient who did have evidence of right lower lobe pneumonia with concern for possible pneumonia being the source of this bacteremia and possible however if the organisms finalized as coagulase negative staph it will be more likely a skin contaminationl Plan: 1-blood cultures repeated to document clearance of bacteremia 2--vancomycin pharmacy to dose target trough of 15 while watching her kidney function and Vanco trough closely 3-obtained sputum for Gram stain and culture 4-Rocephin and Zithromax to continue we will follow on clinical condition and culture to further adjust medication if needed Thank you for this consultation will follow this patient along with you Time with Patient: Greater than 30
[2019-03-09] MEDS: methylPREDNISolone SOD SUCCI 125 MG/2 ML VIAL IV SCH ×5 (06:16→22:40)
[2019-03-09 06:31] LABS: Glucose,Whole Blood 135 mg/dL (75-99)
[2019-03-09] MEDS: INSULIN ASPART (NovoLOG) 100 UNIT/ML VIAL SQ SCH ×4 (06:45→21:18)
[2019-03-09] MEDS: IPRATROPIUM-ALBUTEROL 3 ML NEB INHALATION SCH ×4 (08:12→22:05)
[2019-03-09] MEDS: BUDESONIDE 1 MG/2 ML NEBU INHALATION SCH ×2 (08:12→22:05)
[2019-03-09] MEDS: ENOXAPARIN 40 MG/0.4 ML SYRINGE SQ SCH (08:23)
[2019-03-09 11:48] LABS: Glucose,Whole Blood 191 mg/dL (75-99)
--- NOTE | 2019-03-09 12:10 | P.PN ---
Subjective Progress Note Date: 03/09/19 Principal diagnosis: Acute exacerbation of chronic obstructive pulmonary disease with suspected right lower lobe pneumonia. 63-year-old female patient presented to the hospital because of worsening shortness of breath and altered mentation is started 24 hours prior to her hospital visit. She has COPD which is severe and she has chronic hypoxic respiratory failure initially admitted on oxygen. She was quite short of breath with a temperature of 100.1 at time of admission along with that she was tachycardic and she was on 6 L about 2 by nasal cannula. In the ED, she denied having any chest pain. She had a cough without any significant pleurisy or hemoptysis. She was producing sputum. She was placed on BiPAP due to ongoing respiratory difficulties. Her chest x-ray showed cardiomegaly and a right basilar air space disease. Influenza screen for influenza A and B were negative. The patient has comorbidities including diabetes mellitus, hypertension and she is a chronic smoker in she has chronic back pain and she is currently on Suboxone. For now, the patient a combination of Rocephin and Zithromax. The patient is receiving DuoNeb nebulized treatment around -the-clock. The patient is on IV Solu-Medrol. Vancomycin was also added. Note that there was a preliminary report on the blood cultures indicating gram- positive cocci which turned out to be a staph coagulase-negative and it is probably a contaminant. Her white cell count is at 8.7. The lactic acid level is within normal limits. Troponin first set was negative. BNP level was nonelevated. The patient was seen and evaluated 03/09/2019 in follow-up on the selective care unit. She is awake and alert in no acute distress. Resting comfortably in bed. Requiring 8 L high flow nasal cannula to maintain O2 saturation in the low 90s. She's afebrile. Hemodynamically stable. Blood culture preliminary coag- negative staph. She is currently on ceftriaxone and azithromycin along with DuoNeb inhalations, Pulmicort inhalations, IV Solu-Medrol. Objective - Vital Signs Vital signs: Vital Signs Temp 98.6 F 03/09/19 11:05 Pulse 72 03/09/19 11:47 Resp 20 03/09/19 11:05 BP 130/57 03/09/19 11:05 Pulse Ox 93 L 03/09/19 11:05 Intake & Output 03/08/19 03/09/19 03/09/19 18:59 06:59 18:59 Intake Total 890 650 120 Output Total 600 650 Balance 290 0 120 Weight 82 kg Intake: IV 650 120 Sodium Chloride 0.9% 1, 400 120 000 ml @ 20 mls/hr IV . Q24H [facility] Rx#:[id number] Vancomycin 1,500 mg In 250 Sodium Chloride 0.9% 250 ml @ 125 mls/hr IVPB ONCE ONE Rx#:[id number] Intake, IV Titration 250 Amount Vancomycin 1,500 mg In 250 Sodium Chloride 0.9% 250 ml @ 125 mls/hr IVPB Q8H [facility] Rx#:[id number] Oral 240 280 120 Output: Urine 600 650 Uretheral (Genao) 300 Other: Voiding Method Indwelling Catheter Indwelling Catheter Indwelling Catheter # Voids 0 2 - Exam Gen. appearance, alert pleasant 63-year-old female patient. On 8 L high flow nasal cannula. Not using accessory muscles of breathing. Head exam was generally normal. There was no scleral icterus or corneal arcus. Mucous membranes were moist. Neck was supple and without jugular venous distension, thyromegaly, or carotid bruits. Carotids were easily palpable bilaterally. There was no adenopathy. The patient has significant crowding of the posterior oropharynx and the patient has a Mallampati class IV Lung sounds are diminished bilaterally and there is diffuse expiratory wheezes throughout the lung figueredo. There is prolongation of the extremities of renay thing. Cardiac exam revealed the PMI to be normally situated and sized. The rhythm was regular and no extrasystoles were noted during several minutes of auscultation. The first and second heart sounds were normal and physiologic splitting of the second heart sound was noted. There were no murmurs, rubs, clicks, or gallops. Abdominal exam revealed normal bowel sounds. The abdomen was soft, non-tender, and without masses, organomegaly, or appreciable enlargement of the abdominal aorta. Examination of the extremities revealed easily palpable radial, femoral and pedal pulses. There was no cyanosis, clubbing or edema. Examination of the skin revealed no evidence of significant rashes, suspicious appearing nevi or other concerning lesions. Neurologically awake and alert and there is no focal logical deficits. - Labs CBC & Chem 7: 03/08/19 05:43 03/08/19 05:43 Labs: Abnormal Lab Results - Last 24 Hours (Table) 03/08/19 03/08/19 03/08/19 Range/Units 11:34 16:47 21:16 POC Glucose (mg/dL) 221 H 189 H (75-99) mg/dL Plasma Lactic Acid Darvin 0.6 L (0.7-2.0) mmol/L 03/09/19 03/09/19 Range/Units 06:31 11:45 POC Glucose (mg/dL) 135 H 191 H (75-99) mg/dL Plasma Lactic Acid Darvin (0.7-2.0) mmol/L Microbiology - Last 24 Hours (Table) 03/07/19 11:39 Blood Culture Gram Stain - Preliminary Blood Blood Culture - Preliminary Coagulase Negative Staph 03/07/19 11:39 Blood Culture - Final Blood Assessment and Plan Assessment: Assessment 1 acute COPD exacerbation, consider a right lower lobe pneumonia 2 acute hypoxic respiratory failure secondary to above 3 acute on top of chronic hypercapnic respiratory failure with severe respiratory acidosis at time of admission, improved with use of BiPAP and the follow-up asbestosis showed improvement 4 polycythemia secondary to chronic hypoxemia 5 hypertension 6 diabetes mellitus 7 smoker 8 hyperlipidemia 9 chronic smoker Plan: The patient was seen and evaluated by Dr. Alanis. She is improved today as compared to yesterday. Not quite back to her baseline. She is currently off the BiPAP and on 8 L high flow nasal cannula. We'll continue with the current treatment plan. She is again educated regarding the importance of complete smok er cessation. We'll continue to follow and make further recommendations based on her clinical status. I, the cosigning physician, performed a history & physical examination of the patient. Lungs sounds with bilateral end expiratory wheeze. Maintaining good O2 saturations in the 90s on 8 L high flow nasal cannula. I discussed the assessment and plan of care with my nurse practitioner, Marci Concepcion. I attest to the above note as dictated by her.
[2019-03-09] MEDS: AZITHROMYCIN 500 MG in SODIUM CHLORIDE 0.9% 250 ML IVPB SCH (16:09)
[2019-03-09 17:02] LABS: Glucose,Whole Blood 223 mg/dL (75-99)
--- NOTE | 2019-03-09 18:54 | PN ---
PROGRESS NOTE DATE OF SERVICE: 03/09/2019 REASON FOR FOLLOWUP: 1. Pneumonia. 2. Positive blood culture. INTERVAL HISTORY: The patient is currently afebrile. The patient is breathing more comfortably. The patient's cough has decreased in intensity. No chest pain. No nausea. No vomiting. No abdominal pain. No diarrhea. PHYSICAL EXAMINATION: Blood pressure 131/65 with a pulse of 77, temperature 98.5. She is 93% on 8 L high-flow oxygen. General description is a middle-aged female up in the bed in no distress. RESPIRATORY SYSTEM: Unlabored breathing with decreased intensity of breath sounds. No wheeze. HEART: S1, S2. Regular rate and rhythm. ABDOMEN: Soft. No tenderness. EXTREMITIES: No edema of the feet. LABS: No new labs have been obtained today. Blood culture with coagulase-negative Staph. Repeat blood culture has been negative so far. DIAGNOSTIC IMPRESSION AND PLAN: 1. Patient with a positive blood culture with coagulase-negative staphylococcus, likely skin contamination. Vancomycin has been discontinued. Follow-up blood culture negative. 2. Patient with left retrocardiac and posterior mid right lower lobe infiltrate with concern for pneumonia in this patient with respiratory symptoms, likely community- acquired pneumonia. The patient is covered with Rocephin and Zithromax. Will try to obtain a sputum sample to narrow down antibiotics. Continue supportive care. MMODL / IJN: [id number] /
[2019-03-09] MEDS ORDERED: VANCOMYCIN TROUGH DUE 1 EACH MISC MISCELLANE ONE (19:00)
[2019-03-09] MEDS: SODIUM CHLORIDE 0.9% 1,000 ML IV SCH (20:36)
[2019-03-09 20:58] LABS: Glucose,Whole Blood 206 mg/dL (75-99)
--- NOTE | 2019-03-09 22:52 | P.PN ---
Subjective Progress Note Date: 03/08/19 Principal diagnosis: Acute hypoxic respiratory failure Acute COPD exacerbation Patient is a 63-year-old female with a known history of hypertension, diabetes type 2 [id number], COPD/asthma, nicotine addiction ongoing, chronic back pain and currently on Suboxone came to ER with complaints of worsening shortness of breath and altered mental status. Worsening since yesterday.. Patient is on home oxygen currently. Does have a history of severe COPD. Currently patient was placed on BiPAP patient unable to provide any history. Most of the history was taken from the ER note and her at the bedside. Temperature of 100.1 on admission and tachycardia. Was on 6 L via nasal cannula. Patient was placed on BiPAP in the ER. Denied any chest pain. Patient does have cough with sputum production. No recent illnesses otherwise. No sick contacts at home. Chest x-ray showed cardiomegaly. Right basilar airspace disease. Trace effusions bilaterally could not be excluded. Influenza A and B- 03/08/2019 Patient is still short of breath. Currently requiring high flow oxygen with another cannula. Otherwise blood cultures grew gram-positive cocci and va ncomycin was started. Patient has been afebrile otherwise. Continued on IV steroids, and DuoNeb's and pulmonary and ID is following. breasts of chest pain. no nausea vomiting or diarrhea. Patient does have cough without much sputum production. Current medications reviewed. Objective - Vital Signs Vital signs: Vital Signs Temp 98.1 F 03/08/19 20:00 Pulse 88 03/08/19 20:16 Resp 16 03/08/19 20:00 BP 117/63 03/08/19 20:00 Pulse Ox 91 L 03/08/19 20:00 Intake & Output 03/08/19 03/08/19 03/09/19 06:59 18:59 06:59 Intake Total 450 890 Output Total 1450 600 Balance -1000 290 Intake: IV 650 Sodium Chloride 0.9% 1, 400 000 ml @ 20 mls/hr IV . Q24H [facility] Rx#:[id number] Vancomycin 1,500 mg In 250 Sodium Chloride 0.9% 250 ml @ 125 mls/hr IVPB ONCE ONE Rx#:[id number] Intake, IV Titration 300 Amount Sodium Chloride 0.9% 1, 300 000 ml @ 20 mls/hr IV . Q24H [facility] Rx#:[id number] Oral 150 240 Output: Urine 1450 600 Uretheral (Genao) 300 Other: Voiding Method Indwelling Catheter Indwelling Catheter # Voids 1 0 - Exam PHYSICAL EXAMINATION: Patient is lying in the bed comfortably, no acute distress on BiPAP. Patient is otherwise lethargic and confused... HEENT: Normocephalic. Neck is supple. Pupils reactive. Nostrils clear. Oral cavity is moist. Ears reveal no drainage. Neck reveals no JVD, carotid bruits, or thyromegaly. CHEST EXAMINATION: Trachea is central. Symmetrical expansion. Bilateral diminished air entry. Scattered rhonchi.. CARDIAC: Normal S1, S2 with no gallops. No murmurs ABDOMEN: Soft. Bowel sounds normal. No organomegaly. No abdominal bruits. Extremities: reveal no edema. No clubbing or cyanosis Neurologically awake, alert but confused and lethargic. Able to move her extremities while in bed.. No focal deficits noted Skin: No rash or skin lesions. Psychiatric: Could not be assessed at this. Musculoskeletal: No joint swelling or deformity. Normal range of motion. - Labs CBC & Chem 7: 03/08/19 05:43 03/08/19 05:43 Labs: Abnormal Lab Results - Last 24 Hours (Table) 03/08/19 03/08/19 03/08/19 Range/Units 05:43 05:43 06:17 Plt Count 117 L (150-450) k/uL Neutrophils # 8.0 H (1.3-7.7) k/uL Lymphocytes # 0.5 L (1.0-4.8) k/uL Chloride 108 H (98-107) mmol/L BUN 18 H (7-17) mg/dL Creatinine 0.39 L (0.52-1.04) mg/dL Glucose 142 H (74-99) mg/dL POC Glucose (mg/dL) 134 H (75-99) mg/dL Plasma Lactic Acid Darvin (0.7-2.0) mmol/L Calcium 7.7 L (8.4-10.2) mg/dL Phosphorus 2.4 L (2.5-4.5) mg/dL Total Protein 5.6 L (6.3-8.2) g/dL Albumin 3.1 L (3.5-5.0) g/dL 03/08/19 03/08/19 03/08/19 Range/Units 11:34 11:38 16:47 Plt Count (150-450) k/uL Neutrophils # (1.3-7.7) k/uL Lymphocytes # (1.0-4.8) k/uL Chloride (98-107) mmol/L BUN (7-17) mg/dL Creatinine (0.52-1.04) mg/dL Glucose (74-99) mg/dL POC Glucose (mg/dL) 133 H 221 H (75-99) mg/dL Plasma Lactic Acid Darvin 0.6 L (0.7-2.0) mmol/L Calcium (8.4-10.2) mg/dL Phosphorus (2.5-4.5) mg/dL Total Protein (6.3-8.2) g/dL Albumin (3.5-5.0) g/dL 03/08/19 Range/Units 21:16 Plt Count (150-450) k/uL Neutrophils # (1.3-7.7) k/uL Lymphocytes # (1.0-4.8) k/uL Chloride (98-107) mmol/L BUN (7-17) mg/dL Creatinine (0.52-1.04) mg/dL Glucose (74-99) mg/dL POC Glucose (mg/dL) 189 H (75-99) mg/dL Plasma Lactic Acid Darvin (0.7-2.0) mmol/L Calcium (8.4-10.2) mg/dL Phosphorus (2.5-4.5) mg/dL Total Protein (6.3-8.2) g/dL Albumin (3.5-5.0) g/dL Microbiology - Last 24 Hours (Table) 03/07/19 11:39 Blood Culture Gram Stain - Preliminary Blood Blood Culture - Preliminary Coagulase Negative Staph 03/07/19 11:39 Blood Culture - Final Blood Assessment and Plan Assessment: Altered mental status due to metabolic encephalopathy. Improving slowly. Acute severe COPD exacerbation with tracheobronchitis Acute on chronic hypoxic respiratory failure. Requiring BiPAP on admission. Currently on high flow oxygen. Possible right basilar pneumonia. Diabetes type 2 non insulin-dependent Hypertension Hyperlipidemia Chronic back pain and neck pain. History of opiate abuse. On Suboxone on at home Ongoing nicotine addiction DVT prophylaxis with Lovenox. Plan: Patient will be continued on BiPAP as needed. Patient will be continued on IV Solu-Medrol 60 mg every 6 hourly along with duo nebs. Continue with antibiotics in the form of ceftriaxone and azithromycin. Blood pressure medications will be held at this time. Continue with insulin sliding scale. Continue pain management and follow up closely. Pulmonary is on board. Further recommendations based on the clinical course. Discussed with her family at bedside in detail. Time with Patient: Greater than 30
--- NOTE | 2019-03-09 23:09 | P.PN ---
Subjective Progress Note Date: 03/09/19 Principal diagnosis: Acute hypoxic respiratory failure Acute COPD exacerbation Patient is a 63-year-old female with a known history of hypertension, diabetes type 2 [id number], COPD/asthma, nicotine addiction ongoing, chronic back pain and currently on Suboxone came to ER with complaints of worsening shortness of breath and altered mental status. Worsening since yesterday.. Patient is on home oxygen currently. Does have a history of severe COPD. Currently patient was placed on BiPAP patient unable to provide any history. Most of the history was taken from the ER note and her at the bedside. Temperature of 100.1 on admission and tachycardia. Was on 6 L via nasal cannula. Patient was placed on BiPAP in the ER. Denied any chest pain. Patient does have cough with sputum production. No recent illnesses otherwise. No sick contacts at home. Chest x-ray showed cardiomegaly. Right basilar airspace disease. Trace effusions bilaterally could not be excluded. Influenza A and B- 03/08/2019 Patient is still short of breath. Currently requiring high flow oxygen with another cannula. Otherwise blood cultures grew gram-positive cocci and va ncomycin was started. Patient has been afebrile otherwise. Continued on IV steroids, and DuoNeb's and pulmonary and ID is following. breasts of chest pain. no nausea vomiting or diarrhea. Patient does have cough without much sputum production. 03/09/2019 Patient is currently sitting in the bed comfortably. Status is much improved and is awake alert oriented 3. Breathing status is not at baseline. Still requiring high flow oxygen at 8 L. Patient has been afebrile. Currently on antibiotics in the form of ceftriaxone and azithromycin. Vancomycin has been discontinued with final blood cultures growing coagulase-negative staph aureus. Otherwise patient is being continued on IV steroids, DuoNeb's and pulmonary is following. Current medications reviewed. Objective - Vital Signs Vital signs: Vital Signs Temp 98.2 F 03/09/19 20:00 Pulse 68 03/09/19 22:23 Resp 18 03/09/19 20:00 BP 119/63 03/09/19 20:00 Pulse Ox 91 L 03/09/19 22:10 Intake & Output 03/09/19 03/09/19 03/10/19 06:59 18:59 06:59 Intake Total 650 480 240 Output Total 650 450 Balance 0 30 240 Weight 82 kg Intake: IV 120 Sodium Chloride 0.9% 1, 120 000 ml @ 20 mls/hr IV . Q24H [facility] Rx#:[id number] Intake, IV Titration 250 Amount Vancomycin 1,500 mg In 250 Sodium Chloride 0.9% 250 ml @ 125 mls/hr IVPB Q8H [facility] Rx#:[id number] Oral 280 480 240 Output: Urine 650 450 Other: Voiding Method Indwelling Catheter Indwelling Catheter Indwelling Catheter # Voids 2 - Exam PHYSICAL EXAMINATION: Patient is lying in the bed comfortably, no acute distress, awake alert and oriented.. HEENT: Normocephalic. Neck is supple. Pupils reactive. Nostrils clear. Oral cavity is moist. Ears reveal no drainage. Neck reveals no JVD, carotid bruits, or thyromegaly. CHEST EXAMINATION: Trachea is central. Symmetrical expansion. Bilateral scattered rhonchi and expiratory wheeze. CARDIAC: Normal S1, S2 with no gallops. No murmurs ABDOMEN: Soft. Bowel sounds normal. No organomegaly. No abdominal bruits. Extremities: reveal no edema. No clubbing or cyanosis Neurologically awake, alert, oriented x3 with well-coordinated movements. No focal deficits noted Skin: No rash or skin lesions. Psychiatric: Coperative. Nonsuicidal Musculoskeletal: No joint swelling or deformity. Normal range of motion. - Labs CBC & Chem 7: 03/08/19 05:43 03/08/19 05:43 Labs: Abnormal Lab Results - Last 24 Hours (Table) 03/09/19 03/09/19 03/09/19 Range/Units 06:31 11:45 16:56 POC Glucose (mg/dL) 135 H 191 H 223 H (75-99) mg/dL 03/09/19 Range/Units 20:56 POC Glucose (mg/dL) 206 H (75-99) mg/dL Microbiology - Last 24 Hours (Table) 03/08/19 11:34 Blood Culture - Preliminary Blood No Growth after 24 hours Assessment and Plan Assessment: Altered mental status due to metabolic encephalopathy. Improving slowly. Acute severe COPD exacerbation with tracheobronchitis Acute on chronic hypoxic respiratory failure. Requiring BiPAP on admission. Currently on high flow oxygen. Possible right basilar pneumonia. Diabetes type 2 non insulin-dependent Hypertension Hyperlipidemia Chronic back pain and neck pain. History of opiate abuse. On Suboxone on at home Ongoing nicotine addiction DVT prophylaxis with Lovenox. Plan: Patient will be continued on BiPAP as needed. Patient will be continued on IV Solu-Medrol 60 mg every 6 hourly along with duo nebs. Continue with antibiotics in the form of ceftriaxone and azithromycin. Blood pressure medications will be held at this time. Continue with insulin sliding scale. Continue pain management and follow up closely. Pulmonary is on board. Further recommendations based on the clinical course. Discussed with her family at bedside in detail. Time with Patient: Greater than 30
[2019-03-10 06:28] LABS: Glucose,Whole Blood 162 mg/dL (75-99)
[2019-03-10] MEDS: methylPREDNISolone SOD SUCCI 125 MG/2 ML VIAL IV SCH ×4 (06:31→22:43)
[2019-03-10] MEDS: INSULIN ASPART (NovoLOG) 100 UNIT/ML VIAL SQ SCH ×4 (06:32→20:00)
[2019-03-10] MEDS: IPRATROPIUM-ALBUTEROL 3 ML NEB INHALATION SCH ×4 (08:20→20:19)
[2019-03-10] MEDS: BUDESONIDE 1 MG/2 ML NEBU INHALATION SCH ×2 (08:20→20:19)
[2019-03-10] MEDS: ENOXAPARIN 40 MG/0.4 ML SYRINGE SQ SCH (08:38)
[2019-03-10 11:39] LABS: Glucose,Whole Blood 151 mg/dL (75-99)
[2019-03-10] MEDS: LOSARTAN 50 MG TAB PO SCH (12:46)
--- NOTE | 2019-03-10 15:20 | PN ---
PROGRESS NOTE DATE OF SERVICE: 03/10/2019 REASON FOR FOLLOWUP: 1. Pneumonia. 2. Positive blood cultures. INTERVAL HISTORY: The patient is currently afebrile. Patient has been breathing more comfortably. The patient denies having any chest pain. She did have a cough though decreased intensity, not bringing up any sputum. No nausea, no vomiting. No abdominal pain, no diarrhea. PHYSICAL EXAMINATION: Blood pressure 130/92 with a pulse of 76, temperature 97.4. She is 97% on 6 L high- flow oxygen. General description is a middle aged female, up in the bed in no distress. RESPIRATORY SYSTEM: Unlabored breathing with decreased intensity of breath, no wheeze. HEART: S1, S2. Regular rate and rhythm. ABDOMEN: Soft, no tenderness. EXTREMITIES: No edema of the feet. LABS: No new labs have been obtained today. Blood culture repeat has been negative so far. DIAGNOSTIC IMPRESSION AND PLAN: 1. Patient with posterior middle right lower lobe pneumonia, likely community- acquired. Clinical response to Rocephin and Zithromax to continue with benefit therapy with oral Ceftin. 2. Positive blood culture, likely skin contamination. Vancomycin was discontinued. Follow up blood culture has been negative. Family at the bedside, their questions were answered. MMODL / IJN: [id number] /
[2019-03-10 17:09] LABS: Glucose,Whole Blood 159 mg/dL (75-99)
--- NOTE | 2019-03-10 17:20 | P.PN ---
Subjective Progress Note Date: 03/10/19 Principal diagnosis: Acute exacerbation of chronic obstructive pulmonary disease 63-year-old female patient presented to the hospital because of worsening shortness of breath and altered mentation is started 24 hours prior to her hospital visit. She has COPD which is severe and she has chronic hypoxic respiratory failure initially admitted on oxygen. She was quite short of breath with a temperature of 100.1 at time of admission along with that she was tachycardic and she was on 6 L about 2 by nasal cannula. In the ED, she denied having any chest pain. She had a cough without any significant pleurisy or hemoptysis. She was producing sputum. She was placed on BiPAP due to ongoing respiratory difficulties. Her chest x-ray showed cardiomegaly and a right basilar air space disease. Influenza screen for influenza A and B were negative. The patient has comorbidities including diabetes mellitus, hypertension and she is a chronic smoker in she has chronic back pain and she is currently on Suboxone. For now, the patient a combination of Rocephin and Zithromax. The patient is receiving DuoNeb nebulized treatment [id number]. The patient is on IV Solu-Medrol. Vancomycin was also added. Note that there was a preliminary report on the blood cultures indicating gram- positive cocci which turned out to be a staph coagulase-negative and it is probably a contaminant. Her white cell count is at 8.7. The lactic acid level is within normal limits. Troponin first set was negative. BNP level was nonelevated. The patient was seen and evaluated 03/09/2019 in follow-up on the selective care unit. She is awake and alert in no acute distress. Resting comfortably in bed. Requiring 8 L high flow nasal cannula to maintain O2 saturation in the low 90s. She's afebrile. Hemodynamically stable. Blood culture preliminary coag- negative staph. She is currently on ceftriaxone and azithromycin along with DuoNeb inhalations, Pulmicort inhalations, IV Solu-Medrol. On 03/10/2019 patient seen in follow-up on selective care unit, she is awake and alert, in no acute distress, her breathing has improved, breathing much easier, her FiO2 requirements are down to 6 L, from 8 L this morning, her pulse ox is 96% and we will further decrease it down to 4 L. Normally patient wears 2 L of oxygen at home, no fever or chills, blood culture from 03/07/2019 was positive for coagulase-negative staph, follow blood culture so far has shown no growth, clinically patient is asymptomatic, no fever or chills, no cognitive chest pain, she is on empiric antibiotics in the form of azithromycin and Rocephin, IV steroids and nebulized bronchodilators, a dose of vancomycin was also given. Objective - Vital Signs Vital signs: Vital Signs Temp 98.3 F 03/10/19 15:14 Pulse 78 03/10/19 16:47 Resp 20 03/10/19 15:14 BP 153/87 03/10/19 15:14 Pulse Ox 93 L 03/10/19 15:14 Intake & Output 03/09/19 03/10/19 03/10/19 18:59 06:59 18:59 Intake Total 480 240 452 Output Total 450 700 Balance 30 -460 452 Weight 83 kg Intake: Oral 480 240 452 Output: Urine 450 700 Other: Voiding Method Indwelling Catheter Indwelling Catheter Indwelling Catheter - Exam GENERAL EXAM: Alert, pleasant, 63-year-old white female, currently on 4 L of oxygen comfortable in no apparent distress. HEAD: Normocephalic/atraumatic. EYES: Normal reaction of pupils, equal size. Conjunctiva pink, sclera white. NOSE: Clear with pink turbinates. THROAT: No erythema or exudates. NECK: No masses, no JVD, no thyroid enlargement, no adenopathy. CHEST: No chest wall deformity. Symmetrical expansion. LUNGS: Equal air entry with a few wheezes, but no rhonchi or dullness. CVS: Regular rate and rhythm, normal S1 and S2, no gallops, no murmurs, no rubs ABDOMEN: Soft, nontender. No hepatosplenomegaly, normal bowel sounds, no guarding or rigidity. EXTREMITIES: No clubbing, no edema, no cyanosis, 2+ pulses and upper and lower extremities. MUSCULOSKELETAL: Muscle strength and tone normal. SPINE: No scoliosis or deformity SKIN: No rashes CENTRAL NERVOUS SYSTEM: Alert and oriented -3. No focal deficits, tone is normal in all 4 extremities. PSYCHIATRIC: Alert and oriented -3. Appropriate affect. Intact judgment and insight. - Labs CBC & Chem 7: 03/08/19 05:43 03/08/19 05:43 Labs: Abnormal Lab Results - Last 24 Hours (Table) 03/09/19 03/10/19 03/10/19 Range/Units 20:56 06:27 11:34 POC Glucose (mg/dL) 206 H 162 H 151 H (75-99) mg/dL 03/10/19 Range/Units 16:48 POC Glucose (mg/dL) 159 H (75-99) mg/dL Microbiology - Last 24 Hours (Table) 03/08/19 11:34 Blood Culture - Preliminary Blood No Growth after 48 hours Assessment and Plan Plan: Assessment 1 acute COPD exacerbation, consider a right lower lobe pneumonia 2 acute hypoxic respiratory failure secondary to above 3 acute on top of chronic hypercapnic respiratory failure with severe r espiratory acidosis at time of admission, improved with use of BiPAP and the follow-up asbestosis showed improvement 4 polycythemia secondary to chronic hypoxemia 5 hypertension 6 diabetes mellitus 7 smoker 8 hyperlipidemia 9 chronic smoker Plan: Patient is improving, we'll obtain follow-up chest x-ray tomorrow, clinically is improving, has not been able to provide a sputum specimen for us, but has been afebrile, remains on combination of azithromycin and Rocephin, and infectious disease service is following. Continue nebulized bronchodilators and IV steroids I performed a history & physical examination of the patient and discussed their management with my nurse practitioner, Freda Cheng. I reviewed the nurse practitioner's note and agree with the documented findings and plan of care. Lung sounds are positive for a few wheezes. The findings and the impression was discussed with the patient. I attest to the documentation by the nurse practitioner. Time with Patient: Less than 30
[2019-03-10 19:56] LABS: Glucose,Whole Blood 183 mg/dL (75-99)
[2019-03-10] MEDS: SODIUM CHLORIDE 0.9% 1,000 ML IV SCH (20:23)
[2019-03-11] MEDS: methylPREDNISolone SOD SUCCI 125 MG/2 ML VIAL IV SCH ×2 (05:24→12:19)
[2019-03-11 05:31] LABS: Glucose,Whole Blood 171 mg/dL (75-99)
[2019-03-11] MEDS: INSULIN ASPART (NovoLOG) 100 UNIT/ML VIAL SQ SCH ×2 (05:36→12:17)
[2019-03-11] MEDS: IPRATROPIUM-ALBUTEROL 3 ML NEB INHALATION SCH ×3 (09:00→16:09)
[2019-03-11] MEDS: BUDESONIDE 1 MG/2 ML NEBU INHALATION SCH (09:00)
[2019-03-11] MEDS: LOSARTAN 50 MG TAB PO SCH (09:11)
[2019-03-11] MEDS: ENOXAPARIN 40 MG/0.4 ML SYRINGE SQ SCH (09:11)
[2019-03-11 11:13] VITALS: RESP 16
[2019-03-11 11:23] LABS: Glucose,Whole Blood 210 mg/dL (75-99)
--- NOTE | 2019-03-11 14:37 | XR ---
EXAMINATION TYPE: XR chest 2V DATE OF EXAM: 03/11/2019 COMPARISON: 03/08/2019 INDICATION: COPD, pneumonia TECHNIQUE: Frontal and lateral views of the chest are obtained. FINDINGS: The heart size is upper limits of normal. The pulmonary vasculature is normal. The lungs are clear. Right lower lobe infiltrate is resolved. IMPRESSION: 1. No acute pulmonary process.
[2019-03-11 15:43] VITALS: BP 143/80; PULSE 92; TEMP 98.3
[2019-03-11] MEDS ORDERED: AZITHROMYCIN 500 MG TAB PO SCH (16:00)
--- NOTE | 2019-03-11 17:22 | P.PN ---
Subjective Progress Note Date: 03/11/19 63-year-old female patient presented to the hospital because of worsening shortness of breath and altered mentation is started 24 hours prior to her hospital visit. She has COPD which is severe and she has chronic hypoxic respiratory failure initially admitted on oxygen. She was quite short of breath with a temperature of 100.1 at time of admission along with that she was tachycardic and she was on 6 L about 2 by nasal cannula. In the ED, she denied having any chest pain. She had a cough without any significant pleurisy or hemoptysis. She was producing sputum. She was placed on BiPAP due to ongoing respiratory difficulties. Her chest x-ray showed cardiomegaly and a right basilar air space disease. Influenza screen for influenza A and B were negative. The patient has comorbidities including diabetes mellitus, hypertension and she is a chronic smoker in she has chronic back pain and she is currently on Suboxone. For now, the patient a combination of Rocephin and Zithromax. The patient is receiving DuoNeb nebulized treatment [id number]. The patient is on IV Solu-Medrol. Vancomycin was also added. Note that there was a preliminary report on the blood cultures indicating gram- positive cocci which turned out to be a staph coagulase-negative and it is probably a contaminant. Her white cell count is at 8.7. The lactic acid level is within normal limits. Troponin first set was negative. BNP level was nonelevated. The patient was seen and evaluated 03/09/2019 in follow-up on the selective care unit. She is awake and alert in no acute distress. Resting comfortably in bed. Requiring 8 L high flow nasal cannula to maintain O2 saturation in the low 90s. She's afebrile. Hemodynamically stable. Blood culture preliminary coag- negative staph. She is currently on ceftriaxone and azithromycin along with DuoNeb inhalations, Pulmicort inhalations, IV Solu-Medrol. On 03/10/2019 patient seen in follow-up on selective care unit, she is awake and alert, in no acute distress, her breathing has improved, breathing much easier, her FiO2 requirements are down to 6 L, from 8 L this morning, her pulse ox is 96% and we will further decrease it down to 4 L. Normally patient wears 2 L of oxygen at home, no fever or chills, blood culture from 03/07/2019 was positive for coagulase-negative staph, follow blood culture so far has shown no growth, clinically patient is asymptomatic, no fever or chills, no cognitive chest pain, she is on empiric antibiotics in the form of azithromycin and Rocephin, IV steroids and nebulized bronchodilators, a dose of vancomycin was also given. On 03/11/2019, clinically patient is improved and she is feeling less short of breath. She is weaned down to 40s about 2 by nasal cannula. No significant sputum production. She is able to speak full sentences without any major difficulties. She is still on DuoNeb nebulized treatments around the clock. She was switched to prednisone burst taper. She'll be also switched to oral Ce ftin to be completed an outpatient course. I think she is therefore discharged from the pulmonary standpoint. The earlier blood culture was positive for coagulase negative staph. This is likely a contaminant. Objective - Vital Signs Vital signs: Vital Signs Temp 98.3 F 03/11/19 15:43 Pulse 92 03/11/19 15:43 Resp 16 03/11/19 16:00 BP 143/80 03/11/19 15:43 Pulse Ox 93 L 03/11/19 15:43 Intake & Output 03/10/19 03/11/19 03/11/19 18:59 06:59 18:59 Intake Total 692 100 480 Output Total 1025 1500 Balance -333 100 -1020 Weight 82.1 kg Intake: Oral 692 100 480 Output: Urine 1025 1500 Uretheral (Genao) 500 Other: Voiding Method Indwelling Catheter Indwelling Catheter Toilet - Exam GENERAL EXAM: Alert, pleasant, 63-year-old white female, currently on 4 L of oxygen comfortable in no apparent distress. HEAD: Normocephalic/atraumatic. EYES: Normal reaction of pupils, equal size. Conjunctiva pink, sclera white. NOSE: Clear with pink turbinates. THROAT: No erythema or exudates. NECK: No masses, no JVD, no thyroid enlargement, no adenopathy. CHEST: No chest wall deformity. Symmetrical expansion. LUNGS: Equal air entry with a few wheezes, but no rhonchi or dullness. CVS: Regular rate and rhythm, normal S1 and S2, no gallops, no murmurs, no rubs ABDOMEN: Soft, nontender. No hepatosplenomegaly, normal bowel sounds, no guarding or rigidity. EXTREMITIES: No clubbing, no edema, no cyanosis, 2+ pulses and upper and lower extremities. MUSCULOSKELETAL: Muscle strength and tone normal. SPINE: No scoliosis or deformity SKIN: No rashes CENTRAL NERVOUS SYSTEM: Alert and oriented -3. No focal deficits, tone is normal in all 4 extremities. PSYCHIATRIC: Alert and oriented -3. Appropriate affect. Intact judgment and insight. - Labs CBC & Chem 7: 03/08/19 05:43 03/08/19 05:43 Labs: Abnormal Lab Results - Last 24 Hours (Table) 03/10/19 03/11/19 03/11/19 Range/Units 19:54 05:29 11:21 POC Glucose (mg/dL) 183 H 171 H 210 H (75-99) mg/dL Microbiology - Last 24 Hours (Table) 03/08/19 11:34 Blood Culture - Preliminary Blood No Growth after 72 hours 03/07/19 11:39 Blood Culture Gram Stain - Final Blood Blood Culture - Preliminary Coagulase Negative Staph Coagulase Negative Staph#2 Assessment and Plan Plan: Assessment 1 acute COPD exacerbation, consider a right lower lobe pneumonia, clinically improved. 2 acute hypoxic respiratory failure secondary to above , improved and the patient is currently on 4 L of oxygen by nasal cannula. 3 acute on top of chronic hypercapnic respiratory failure with severe respiratory acidosis at time of admission, improved with use of BiPAP is currently off the BiPAP. 4 polycythemia secondary to chronic hypoxemia 5 hypertension 6 diabetes mellitus 7 smoker 8 hyperlipidemia 9 chronic smoker Plan Start the patient home on a prednisone burst taper, DuoNeb nebulized treatments around the clock, and a course of Ceftin. Provide an incentive spirometer. W e'll continue to follow no patient basis.
--- NOTE | 2019-03-11 19:00 | PN ---
PROGRESS NOTE DATE OF SERVICE: 03/11/2019. REASON FOR FOLLOWUP: 1. Pneumonia. 2. Positive blood culture. INTERVAL HISTORY: The patient is currently afebrile. Patient has been breathing more comfortably. The patient's cough has decreased in intensity, has been mostly dry in nature. No nausea, no vomiting. No abdominal pain. No diarrhea. PHYSICAL EXAMINATION: Blood pressure 143/80 with a pulse of 92, temperature 98.3. He is 93% on 4 L nasal cannula. General description is a middle-aged female up in the chair in no distress. Respiratory system: Unlabored breathing with decreased breath sounds in the base, with no wheeze. Heart S1, S2. Regular rate and rhythm. Abdomen soft. No tenderness. LABS: No new labs have been obtained today. Blood culture repeat has been negative. DIAGNOSTIC IMPRESSION AND PLAN: 1. Patient admitted to the hospital with pneumonia, likely community-acquired. The patient has shown overall clinical improvement. The patient's chest x-ray did show overall resolution of the right lower lobe infiltrate. To finish a short course of oral Ceftin. 2. Positive blood culture likely contamination. No need for further workup for the same. MMODL / IJN: [id number] /
== END 2019-03-11 16:47 | disposition home or self-care (01) | DRG 190 ==
LOC: EC 10:54 → 3SCARD 13:07 → 2SICU 14:59 → 3SCARD 16:26
PROVIDERS: ADMIT Internal Medicine; ATTEND Internal Medicine
PROC: 5A09357 Assistance with Respiratory Ventilation, Less than 24 Consecutive Hours, Continuous Positive Airway Pressure (ICD-10-PCS; principal; 2019-03-07)
DX: J44.1 Chronic obstructive pulmonary disease with (acute) exacerbation (principal); J18.1 Lobar pneumonia, unspecified organism; G93.41 Metabolic encephalopathy; J96.21 Acute and chronic respiratory failure with hypoxia; J96.22 Acute and chronic respiratory failure with hypercapnia; J44.0 Chronic obstructive pulmonary disease with (acute) lower respiratory infection; D75.1 Secondary polycythemia; I11.9 Hypertensive heart disease without heart failure; G89.29 Other chronic pain; E11.9 Type 2 diabetes mellitus without complications; E78.5 Hyperlipidemia, unspecified; M54.2 Cervicalgia; M54.9 Dorsalgia, unspecified; F17.210 Nicotine dependence, cigarettes, uncomplicated; Z79.84 Long term (current) use of oral hypoglycemic drugs; Z79.899 Other long term (current) drug therapy; Z90.49 Acquired absence of other specified parts of digestive tract; Z99.81 Dependence on supplemental oxygen; Z98.42 Cataract extraction status, left eye; Z98.41 Cataract extraction status, right eye; Z96.1 Presence of intraocular lens; Z82.49 Family history of ischemic heart disease and other diseases of the circulatory system
CPT/HCPCS: 36415; 71045; 71046; 80053; 80202; 81001; 82550; 82803; 83605; 83735; 83880; 84100; 84484; 85025; 85610; 85730; 87040; 87502; 93005; 94640; 94644; 94660; 94760; 96361; 96365; 96367; 96375; 99291

== ENCOUNTER 2019-05-14 12:57 | Emergency (ER) | payer BC ==
[2019-05-14] MEDS ORDERED: methylPREDNISolone SOD SUCCI 125 MG/2 ML VIAL IV STA (13:18)
[2019-05-14] MEDS ORDERED: SODIUM CHLORIDE 0.9% 1,000 ML IV STA (13:18)
[2019-05-14] MEDS ORDERED: IPRATROPIUM-ALBUTEROL 3 ML NEB INHALATION STA (13:18)
--- NOTE | 2019-05-14 13:21 | ED ---
General Adult HPI - General Chief complaint: Shortness of Breath Stated complaint: ROSIE Time Seen by Provider: 05/14/19 13:11 Source: patient, RN notes reviewed Mode of arrival: ambulatory Limitations: no limitations - History of Present Illness Initial comments: Patient is a pleasant 63-year-old female presenting to the emergency department with difficulty in breathing. Onset of symptoms was yesterday. Symptoms are similar to previous COPD. Patient is unaware of any fevers. Patient has minimal cough that is nonproductive. No chest pain. Patient does feel somewhat fatigued. No leg pain or leg swelling. No chest pain. - Related Data Home Medications Medication Instructions Recorded Confirmed Atorvastatin [Lipitor] 20 mg PO DAILY 06/05/18 05/14/19 Buprenorphine HCl [Subutex] 8 mg SL TID 06/05/18 05/14/19 metFORMIN HCL 500 mg PO DAILY 06/05/18 05/14/19 Losartan/Hydrochlorothiazide 1 tab PO DAILY 03/07/19 05/14/19 [Losartan-Hctz 100-12.5 mg Tab] Albuterol Sulfate [Proair Hfa] 2 puff INHALATION RT-Q6H PRN 05/14/19 05/14/19 Budesonide/Formoterol Fumarate 2 puff INHALATION RT-BID 05/14/19 05/14/19 [Symbicort 160-4.5 Mcg Inhaler] Previous Rx's Medication Instructions Recorded Levofloxacin [Levaquin] 500 mg PO DAILY #9 tab 05/14/19 predniSONE 20 mg PO BID #10 tab 05/14/19 Allergies Allergy/AdvReac Type Severity Reaction Status Date / Time No Known Allergies Allergy Verified 05/14/19 14:11 Review of Systems ROS Statement: Those systems with pertinent positive or pertinent negative responses have been documented in the HPI. ROS Other: All systems not noted in ROS Statement are negative. Constitutional: Reports: as per HPI Eyes: Denies: eye pain ENT: Denies: ear pain Respiratory: Reports: dyspnea Cardiovascular: Denies: chest pain Endocrine: Reports: fatigue Gastrointestinal: Denies: abdominal pain, vomiting Genitourinary: Denies: dysuria Musculoskeletal: Denies: back pain Skin: Denies: rash Neurological: Denies: weakness Past Medical History Past Medical History: Diabetes Mellitus, Hyperlipidemia, Hypertension Additional Past Medical History / Comment(s): Chronic back and neck pain, NIDDM type II. History of Any Multi-Drug Resistant Organisms: None Reported Past Surgical History: Cholecystectomy Additional Past Surgical History / Comment(s): Bilateral cataract removals/lens implants. Past Anesthesia/Blood Transfusion Reactions: No Reported Reaction Past Psychological History: No Psychological Hx Reported Smoking Status: Current some day smoker Past Alcohol Use History: None Reported Past Drug Use History: None Reported - Past Family History Father Family Medical History: Coronary Artery Disease (CAD) Additional Family Medical History / Comment(s): Father had CABG. He in his 70s. Mother Family Medical History: No Reported History Additional Family Medical History / Comment(s): Mother was healthy and lived to be 92 yrs old. General Exam Limitations: no limitations General appearance: alert, in no apparent distress Head exam: Present: normocephalic Eye exam: Present: normal appearance, PERRL ENT exam: Present: normal oropharynx Neck exam: Present: normal inspection Respiratory exam: Present: rhonchi (Right lower lobe), decreased breath sounds Cardiovascular Exam: Present: regular rate, normal rhythm GI/Abdominal exam: Present: soft. Absent: tenderness Extremities exam: Present: normal inspection. Absent: pedal edema, calf tenderness Neurological exam: Present: alert Psychiatric exam: Present: normal affect, normal mood Skin exam: Present: normal color Course Vital Signs 05/14/19 05/14/19 05/14/19 13:03 13:20 13:29 Temperature 100.8 F H 99.6 F Pulse Rate 106 H Respiratory 20 20 Rate Blood Pressure 120/61 O2 Sat by Pulse 90 L Oximetry 05/14/19 05/14/19 05/14/19 13:36 13:47 14:20 Temperature Pulse Rate 97 98 89 Respiratory 20 Rate Blood Pressure 115/59 O2 Sat by Pulse 95 Oximetry EKG Findings - EKG Comments: EKG Findings:: Sinus tachycardia 101. MO 184. QRS 68. QT 362. QTC 469. Normal axis. Normal QRS. No acute ST change. Medical Decision Making - Medical Decision Making Patient reevaluated and resting comfortably in bed. Patient states she is doing better. Patient recommended admission. Patient is made aware that I do have concern for potential developing pneumonia on x-ray that radiologist did not read. Patient is also aware of concern regarding sepsis and risks involved with this. Patient is recommended admission for further care and IV antibiotics. Family is present. Despite this patient refuses admission. Patient states she has an appointment on Friday that she will go to however this is not with her [facility] care physician. Patient is also advised to follow-up with her lung doctor and primary care physician in the being the week. Patient does demonstrate medical decision making and will leave AGAINST MEDICAL ADVICE. Patient will be placed on antibiotics. - Lab Data Result diagrams: 05/14/19 11:05/14/19 11: Lab Results 05/14/19 05/14/19 05/14/19 Range/Units 11:30 11: 11:30 WBC 20.0 H (3.8-10.6) k/uL RBC 4.57 (3.80-5.40) m/uL Hgb 14.9 (11.4-16.0) gm/dL Hct 44.1 (34.0-46.0) % MCV 96.5 (80.0-100.0) fL MCH 32.5 (25.0-35.0) pg MCHC 33.7 (31.0-37.0) g/dL RDW 13.6 (11.5-15.5) % Plt Count 163 (150-450) k/uL Neutrophils % 90 % Lymphocytes % 5 % Monocytes % 2 % Eosinophils % 2 % Basophils % 0 % Neutrophils # 18.0 H (1.3-7.7) k/uL Lymphocytes # 1.1 (1.0-4.8) k/uL Monocytes # 0.4 (0-1.0) k/uL Eosinophils # 0.3 (0-0.7) k/uL Basophils # 0.0 (0-0.2) k/uL PT 11.2 (9.0-12.0) sec INR 1.1 (<1.2) APTT 25.6 (22.0-30.0) sec Sodium 139 (137-145) mmol/L Potassium 3.7 (3.5-5.1) mmol/L Chloride 105 (98-107) mmol/L Carbon Dioxide 26 (22-30) mmol/L Anion Gap 8 mmol/L BUN 14 (7-17) mg/dL Creatinine 0.48 L (0.52-1.04) mg/dL Est GFR (CKD-EPI)AfAm >90 (>60 ml/min/1.73 sqM) Est GFR (CKD-EPI)NonAf >90 (>60 ml/min/1.73 sqM) Glucose 164 H (74-99) mg/dL Plasma Lactic Acid Darvin (0.7-2.0) mmol/L Calcium 9.7 (8.4-10.2) mg/dL Total Bilirubin 1.1 (0.2-1.3) mg/dL AST 19 (14-36) U/L ALT 20 (9-52) U/L Alkaline Phosphatase 66 (38-126) U/L Total Protein 6.9 (6.3-8.2) g/dL Albumin 4.3 (3.5-5.0) g/dL 05/14/19 Range/Units 11:30 WBC (3.8-10.6) k/uL RBC (3.80-5.40) m/uL Hgb (11.4-16.0) gm/dL Hct (34.0-46.0) % MCV (80.0-100.0) fL MCH (25.0-35.0) pg MCHC (31.0-37.0) g/dL RDW (11.5-15.5) % Plt Count (150-450) k/uL Neutrophils % % Lymphocytes % % Monocytes % % Eosinophils % % Basophils % % Neutrophils # (1.3-7.7) k/uL Lymphocytes # (1.0-4.8) k/uL Monocytes # (0-1.0) k/uL Eosinophils # (0-0.7) k/uL Basophils # (0-0.2) k/uL PT (9.0-12.0) sec INR (<1.2) APTT (22.0-30.0) sec Sodium (137-145) mmol/L Potassium (3.5-5.1) mmol/L Chloride (98-107) mmol/L Carbon Dioxide (22-30) mmol/L Anion Gap mmol/L BUN (7-17) mg/dL Creatinine (0.52-1.04) mg/dL Est GFR (CKD-EPI)AfAm (>60 ml/min/1.73 sqM) Est GFR (CKD-EPI)NonAf (>60 ml/min/1.73 sqM) Glucose (74-99) mg/dL Plasma Lactic Acid Darvin 1.5 (0.7-2.0) mmol/L Calcium (8.4-10.2) mg/dL Total Bilirubin (0.2-1.3) mg/dL AST (14-36) U/L ALT (9-52) U/L Alkaline Phosphatase (38-126) U/L Total Protein (6.3-8.2) g/dL Albumin (3.5-5.0) g/dL - Radiology Data Radiology results: image reviewed (Chest x-ray is read as no acute abnormality. I do question left posterior developing infiltrate.) Disposition Clinical Impression: COPD exacerbation Disposition: Left Against Medical Advice Instructions (If sedation given, give patient instructions): COPD (Chronic Obstructive Pulmonary Disease) (ED), Community Acquired Pneumonia (ED) Additional Instructions: Please follow-up with primary care physician and your lung doctor and your appointment as scheduled on Friday. Return for difficulty breathing, continued fevers, pain, 15, worsening symptoms or any other concern. You are leaving AGAINST MEDICAL ADVICE. Prescription has been sent to [place] pharmacy. Prescriptions: Levofloxacin [Levaquin] 500 mg PO DAILY #9 tab predniSONE 20 mg PO BID #10 tab Is patient prescribed a controlled substance at d/c from ED?: No Referrals: Ken Ham DO [Primary Care Provider] - 1-2 days Time of Disposition: 14:33
[2019-05-14 13:49] LABS: Basophils % (A) 0 %; Eosinophils # (A) 0.3 k/uL (0-0.7); Eosinophils % (A) 2 %; HCT 44.1 % (34.0-46.0); HGB 14.9 gm/dL (11.4-16.0); Lymphocytes # (A) 1.1 k/uL (1.0-4.8); Lymphocytes % (A) 5 %; MCH 32.5 pg (25.0-35.0); MCHC 33.7 g/dL (31.0-37.0); MCV 96.5 fL (80.0-100.0); Mean Platelet Volume 6.6; Monocytes # (A) 0.4 k/uL (0-1.0); Monocytes % (A) 2 %; Neutrophils % (A) 90 %; Platelet Count 163 k/uL (150-450); RBC 4.57 m/uL (3.80-5.40); RDW 13.6 % (11.5-15.5)
[2019-05-14 13:56] LABS: ALT 20 U/L (9-52); AST 19 U/L (14-36); African American GFR (CKD) >90 (>60 ml/min/1.73 sqM); Albumin 4.3 g/dL (3.5-5.0); Alkaline Phosphatase 66 U/L (38-126); Anion Gap 8 mmol/L; Blood Urea Nitrogen 14 mg/dL (7-17); Calcium 9.7 mg/dL (8.4-10.2); Carbon Dioxide 26 mmol/L (22-30); Chloride 105 mmol/L (98-107); Glucose 164 mg/dL (74-99); Non-African American GFR(CKD) >90 (>60 ml/min/1.73 sqM); Potassium 3.7 mmol/L (3.5-5.1); Sodium 139 mmol/L (137-145); Total Bilirubin 1.1 mg/dL (0.2-1.3); Total Protein 6.9 g/dL (6.3-8.2)
[2019-05-14 13:57] LABS: INR 1.1 (<1.2); Partial Thromboplastin Time 25.6 sec (22.0-30.0); Prothrombin Time 11.2 sec (9.0-12.0)
--- NOTE | 2019-05-14 14:03 | XR ---
EXAMINATION TYPE: XR chest 2V DATE OF EXAM: 05/14/2019 COMPARISON: 03/11/2019 HISTORY: Shortness of breath TECHNIQUE: Frontal and lateral views of the chest are obtained. FINDINGS: Scattered senescent parenchymal changes noted. Hyperinflation compatible with COPD. No evidence for infiltrate. No evidence for atelectasis. Heart size is stable. Mediastinal structures are stable and grossly unremarkable. No evidence for hilar prominence. Degenerative changes dorsal spine. IMPRESSION: 1. No evidence for acute pulmonary disease.
[2019-05-14] MEDS ORDERED: LEVOFLOXACIN 750 MG TAB PO STA (14:33)
[2019-05-14 15:26] VITALS: BP 118/67; PULSE 84; RESP 18; TEMP 99.8
== END 2019-05-14 15:23 | disposition left against medical advice (07) ==
LOC: EC 12:57
DX: J44.1 Chronic obstructive pulmonary disease with (acute) exacerbation (principal); E11.9 Type 2 diabetes mellitus without complications; E78.5 Hyperlipidemia, unspecified; I10 Essential (primary) hypertension; G89.29 Other chronic pain; F17.200 Nicotine dependence, unspecified, uncomplicated; Z79.51 Long term (current) use of inhaled steroids; Z79.84 Long term (current) use of oral hypoglycemic drugs; Z79.891 Long term (current) use of opiate analgesic; Z79.899 Other long term (current) drug therapy; Z53.29 Procedure and treatment not carried out because of patient's decision for other reasons
CPT/HCPCS: 36415; 71046; 80053; 83605; 85025; 85610; 85730; 87040; 93005; 94640; 96361; 96374; 99285

== ENCOUNTER 2019-05-30 09:20 | Emergency (ER) | payer BC ==
[2019-05-30] MEDS ORDERED: SODIUM CHLORIDE 0.9% 500 ML 500 ML IV STA (09:44)
[2019-05-30] MEDS ORDERED: DEXAMETHASONE SOD PHOSPHATE 10 MG/ML 1 ML VIAL IV STA (09:45)
[2019-05-30] MEDS ORDERED: IPRATROPIUM-ALBUTEROL 3 ML NEB INHALATION STA (09:46)
[2019-05-30 10:01] LABS: VBG PH 7.28 (7.31-7.41)
--- NOTE | 2019-05-30 10:09 | ED ---
General Adult HPI - General Chief complaint: Shortness of Breath Stated complaint: SOB Time Seen by Provider: 05/30/19 09:29 Source: patient Mode of arrival: wheelchair Limitations: no limitations - History of Present Illness Initial comments: Dictation was produced using [employer] dictation software. please excuse any grammatical, word or spelling errors. Chief Complaint: 63-year-old female brought in by family for shortness of breath. History of Present Illness: Patient is 63-year-old female she was brought in by family for chief complaint of respiratory distress. Patient was admitted to the hospital 3 months ago for similar event. According to family patient appeared to be slightly altered however she wasn't shown to be in significant respiratory distress. Patient has any pain complaints at this time. Denies any coughing. Denies any fever, chills or night sweats. Patient has history of opiate abuse and currently on Suboxone. According family patient was admitted to the hospital 3 months ago for acute pneumonia and COPD exacerbation. The ROS documented in this emergency department record has been reviewed and confirmed by me. Those systems with pertinent positive or negative responses have been documented in the HPI. All other systems are other negative and/or noncontributory. PHYSICAL EXAM: General Impression: Alert and oriented x3, not in acute distress, lethargic HEENT: Normocephalic atraumatic, extra-ocular movements intact, pinpoint pupils, mucous membranes moist. Cardiovascular: Heart regular rate and rhythm, S1&S2 audible, no murmurs, rubs or gallops Chest: Wheezing localized to the right lung base. Abdomen: Bowel sounds present, abdomen soft, non-tender, non-distended, no org anomegaly Musculoskeletal: Pulses present and equal in all extremities, no peripheral edema Motor: no focal deficits noted Neurological: CN II-XII grossly intact, no focal motor or sensory deficits noted Skin: Intact with no visualized rashes Psych: Normal affect and mood ED course: 63-year-old female presents with respiratory complaints. Vital signs upon arrival shows hypoxia 85% on 2 L nasal cannula and heart rate of 120. She was seen and evaluated resuscitation bay. 0.4 mg of Narcan was administered for concerns of opiate toxicity. There was some improvement in her mentation. Lavatory evaluation obtained. Leukocytosis of 19.0, coag panel unremarkable. Metabolic panel shows pH of 7.28 with a pCO2 59. Metabolic panel is unremarkable. Influenza is negative. Chest x-ray obtained showing interval development of atelectasis in the right middle lobe. Patient reevaluated at bedside she feels well. Discussed with patient that we would recommend admitting her to the hospital for further care and pulmonary consultation. Patient refused. She understands that by leaving the hospital she could experience significant permanent comorbidity or mortality. She feels comfortable being discharged. She has family with her 24 hours of the day. She lives nearby and can return to emergency department if she gets worse. This point there is some concern for pulmonary infection. Patient given prescription for Zithromax pack. Patient has respiratory medications at home that she is advised to use as directed. Return parameters discussed. Patient will be discharged. Risks, Benefits, and Treatment alternatives were discussed in detail with the patient. The patient is alert and oriented X 3 and has the capacity to make an informed decision. The risks of increased morbidity including the possibly of were explained to and understood by the patient who is choosing to leave against medical advice. The patient is encouraged to return any time should they want further treatment and diagnostic investigation. EKG interpretation: Ventricular rate 110, sinus tachycardia,. Interval 172, QRS 64, QTC 449. No CT prolongation, no QTC prolongation, no ST or T-wave changes no josafat. EKG compared to 05/14/2019 showing no changes. Overall, this EKG is unremarkable - Related Data Home Medications Medication Instructions Recorded Confirmed Atorvastatin [Lipitor] 20 mg PO DAILY 06/05/18 05/14/19 Buprenorphine HCl [Subutex] 8 mg SL TID 06/05/18 05/14/19 metFORMIN HCL 500 mg PO DAILY 06/05/18 05/14/19 Losartan/Hydrochlorothiazide 1 tab PO DAILY 03/07/19 05/14/19 [Losartan-Hctz 100-12.5 mg Tab] Albuterol Sulfate [Proair Hfa] 2 puff INHALATION RT-Q6H PRN 05/14/19 05/14/19 Budesonide/Formoterol Fumarate 2 puff INHALATION RT-BID 05/14/19 05/14/19 [Symbicort 160-4.5 Mcg Inhaler] Previous Rx's Medication Instructions Recorded Levofloxacin [Levaquin] 500 mg PO DAILY #9 tab 05/14/19 predniSONE 20 mg PO BID #10 tab 05/14/19 Azithromycin [Zithromax Z-pack] 0 mg PO DIRECTED #6 tab 05/30/19 Allergies Allergy/AdvReac Type Severity Reaction Status Date / Time No Known Allergies Allergy Verified 05/30/19 09:25 Review of Systems ROS Statement: Those systems with pertinent positive or pertinent negative responses have been documented in the HPI. ROS Other: All systems not noted in ROS Statement are negative. Past Medical History Past Medical History: Diabetes Mellitus, Hyperlipidemia, Hypertension Additional Past Medical History / Comment(s): Chronic back and neck pain, NIDDM type II. History of Any Multi-Drug Resistant Organisms: None Reported Past Surgical History: Cholecystectomy Additional Past Surgical History / Comment(s): Bilateral cataract removals/lens implants. Past Anesthesia/Blood Transfusion Reactions: No Reported Reaction Past Psychological History: No Psychological Hx Reported Smoking Status: Current some day smoker Past Alcohol Use History: None Reported Past Drug Use History: None Reported - Past Family History Father Family Medical History: Coronary Artery Disease (CAD) Additional Family Medical History / Comment(s): Father had CABG. He in his 70s. Mother Family Medical History: No Reported History Additional Family Medical History / Comment(s): Mother was healthy and lived to be 92 yrs old. General Exam Limitations: no limitations Course Vital Signs 05/30/19 05/30/19 05/30/19 09:23 09:54 10:05 Temperature 99.5 F Pulse Rate 120 H 103 H 106 H Respiratory 14 16 Rate Blood Pressure 122/72 109/60 O2 Sat by Pulse 85 L 95 Oximetry 05/30/19 10:16 Temperature Pulse Rate 103 H Respiratory Rate Blood Pressure O2 Sat by Pulse Oximetry Medical Decision Making - Lab Data Result diagrams: 05/30/19 09:38 05/30/19 09:38 Lab Results 05/30/19 05/30/19 05/30/19 Range/Units 09:38 09:38 09:38 WBC 19.0 H (3.8-10.6) k/uL RBC 4.61 (3.80-5.40) m/uL Hgb 14.7 (11.4-16.0) gm/dL Hct 44.9 (34.0-46.0) % MCV 97.6 (80.0-100.0) fL MCH 32.0 (25.0-35.0) pg MCHC 32.8 (31.0-37.0) g/dL RDW 13.6 (11.5-15.5) % Plt Count 198 (150-450) k/uL Neutrophils % 90 % Lymphocytes % 5 % Monocytes % 4 % Eosinophils % 1 % Basophils % 0 % Neutrophils # 17.2 H (1.3-7.7) k/uL Lymphocytes # 0.9 L (1.0-4.8) k/uL Monocytes # 0.7 (0-1.0) k/uL Eosinophils # 0.1 (0-0.7) k/uL Basophils # 0.0 (0-0.2) k/uL PT (9.0-12.0) sec INR (<1.2) APTT (22.0-30.0) sec VBG pH (7.31-7.41) VBG pCO2 (37-51) mmHg VBG HCO3 (24-28) mmol/L Sodium 140 (137-145) mmol/L Potassium 3.8 (3.5-5.1) mmol/L Chloride 104 (98-107) mmol/L Carbon Dioxide 27 (22-30) mmol/L Anion Gap 9 mmol/L BUN 29 H (7-17) mg/dL Creatinine 0.75 (0.52-1.04) mg/dL Est GFR (CKD-EPI)AfAm >90 (>60 ml/min/1.73 sqM) Est GFR (CKD-EPI)NonAf 86 (>60 ml/min/1.73 sqM) Glucose 152 H (74-99) mg/dL Plasma Lactic Acid Darvin 1.3 (0.7-2.0) mmol/L Calcium 9.6 (8.4-10.2) mg/dL Total Bilirubin 1.8 H (0.2-1.3) mg/dL AST 20 (14-36) U/L ALT 17 (4-34) U/L Alkaline Phosphatase 85 (38-126) U/L Ammonia 22 (<30) umol/L Troponin I (0.000-0.034) ng/mL Total Protein 6.6 (6.3-8.2) g/dL Albumin 3.9 (3.5-5.0) g/dL Influenza Type A RNA (Not Detectd) Influenza Type B (PCR) (Not Detectd) 05/30/19 05/30/19 05/30/19 Range/Units 09:38 09:38 09:38 WBC (3.8-10.6) k/uL RBC (3.80-5.40) m/uL Hgb (11.4-16.0) gm/dL Hct (34.0-46.0) % MCV (80.0-100.0) fL MCH (25.0-35.0) pg MCHC (31.0-37.0) g/dL RDW (11.5-15.5) % Plt Count (150-450) k/uL Neutrophils % % Lymphocytes % % Monocytes % % Eosinophils % % Basophils % % Neutrophils # (1.3-7.7) k/uL Lymphocytes # (1.0-4.8) k/uL Monocytes # (0-1.0) k/uL Eosinophils # (0-0.7) k/uL Basophils # (0-0.2) k/uL PT 11.2 (9.0-12.0) sec INR 1.1 (<1.2) APTT 25.2 (22.0-30.0) sec VBG pH 7.28 L (7.31-7.41) VBG pCO2 59 H (37-51) mmHg VBG HCO3 27 (24-28) mmol/L Sodium (137-145) mmol/L Potassium (3.5-5.1) mmol/L Chloride (98-107) mmol/L Carbon Dioxide (22-30) mmol/L Anion Gap mmol/L BUN (7-17) mg/dL Creatinine (0.52-1.04) mg/dL Est GFR (CKD-EPI)AfAm (>60 ml/min/1.73 sqM) Est GFR (CKD-EPI)NonAf (>60 ml/min/1.73 sqM) Glucose (74-99) mg/dL Plasma Lactic Acid Darvin (0.7-2.0) mmol/L Calcium (8.4-10.2) mg/dL Total Bilirubin (0.2-1.3) mg/dL AST (14-36) U/L ALT (4-34) U/L Alkaline Phosphatase (38-126) U/L Ammonia (<30) umol/L Troponin I <0.012 (0.000-0.034) ng/mL Total Protein (6.3-8.2) g/dL Albumin (3.5-5.0) g/dL Influenza Type A RNA (Not Detectd) Influenza Type B (PCR) (Not Detectd) 05/30/19 Range/Units 09:57 WBC (3.8-10.6) k/uL RBC (3.80-5.40) m/uL Hgb (11.4-16.0) gm/dL Hct (34.0-46.0) % MCV (80.0-100.0) fL MCH (25.0-35.0) pg MCHC (31.0-37.0) g/dL RDW (11.5-15.5) % Plt Count (150-450) k/uL Neutrophils % % Lymphocytes % % Monocytes % % Eosinophils % % Basophils % % Neutrophils # (1.3-7.7) k/uL Lymphocytes # (1.0-4.8) k/uL Monocytes # (0-1.0) k/uL Eosinophils # (0-0.7) k/uL Basophils # (0-0.2) k/uL PT (9.0-12.0) sec INR (<1.2) APTT (22.0-30.0) sec VBG pH (7.31-7.41) VBG pCO2 (37-51) mmHg VBG HCO3 (24-28) mmol/L Sodium (137-145) mmol/L Potassium (3.5-5.1) mmol/L Chloride (98-107) mmol/L Carbon Dioxide (22-30) mmol/L Anion Gap mmol/L BUN (7-17) mg/dL Creatinine (0.52-1.04) mg/dL Est GFR (CKD-EPI)AfAm (>60 ml/min/1.73 sqM) Est GFR (CKD-EPI)NonAf (>60 ml/min/1.73 sqM) Glucose (74-99) mg/dL Plasma Lactic Acid Darvin (0.7-2.0) mmol/L Calcium (8.4-10.2) mg/dL Total Bilirubin (0.2-1.3) mg/dL AST (14-36) U/L ALT (4-34) U/L Alkaline Phosphatase (38-126) U/L Ammonia (<30) umol/L Troponin I (0.000-0.034) ng/mL Total Protein (6.3-8.2) g/dL Albumin (3.5-5.0) g/dL Influenza Type A RNA Not Detected (Not Detectd) Influenza Type B (PCR) Not Detected (Not Detectd) Disposition Clinical Impression: Hypoxia Disposition: HOME SELF-CARE Condition: Fair Instructions (If sedation given, give patient instructions): Hypoxia (ED) Prescriptions: Azithromycin [Zithromax Z-pack] 0 mg PO DIRECTED #6 tab Is patient prescribed a controlled substance at d/c from ED?: No Referrals: Ken Ham DO [Primary Care Provider] - 1-2 days Time of Disposition: 11:17
[2019-05-30 10:14] LABS: INR 1.1 (<1.2); Lactic Acid, Venous 1.3 mmol/L (0.7-2.0); Partial Thromboplastin Time 25.2 sec (22.0-30.0); Prothrombin Time 11.2 sec (9.0-12.0)
[2019-05-30 10:15] LABS: ALT 17 U/L (4-34); AST 20 U/L (14-36); African American GFR (CKD) >90 (>60 ml/min/1.73 sqM); Albumin 3.9 g/dL (3.5-5.0); Alkaline Phosphatase 85 U/L (38-126); Anion Gap 9 mmol/L; Blood Urea Nitrogen 29 mg/dL (7-17); Calcium 9.6 mg/dL (8.4-10.2); Carbon Dioxide 27 mmol/L (22-30); Chloride 104 mmol/L (98-107); Glucose 152 mg/dL (74-99); Non-African American GFR(CKD) 86 (>60 ml/min/1.73 sqM); Potassium 3.8 mmol/L (3.5-5.1); Sodium 140 mmol/L (137-145); Total Bilirubin 1.8 mg/dL (0.2-1.3); Total Protein 6.6 g/dL (6.3-8.2)
[2019-05-30 10:23] LABS: Basophils % (A) 0 %; Eosinophils # (A) 0.1 k/uL (0-0.7); Eosinophils % (A) 1 %; HCT 44.9 % (34.0-46.0); HGB 14.7 gm/dL (11.4-16.0); Lymphocytes # (A) 0.9 k/uL (1.0-4.8); Lymphocytes % (A) 5 %; MCHC 32.8 g/dL (31.0-37.0); MCV 97.6 fL (80.0-100.0); Mean Platelet Volume 7.3; Monocytes # (A) 0.7 k/uL (0-1.0); Monocytes % (A) 4 %; Neutrophils # (A) 17.2 k/uL (1.3-7.7); Neutrophils % (A) 90 %; Platelet Count 198 k/uL (150-450); RBC 4.61 m/uL (3.80-5.40); RDW 13.6 % (11.5-15.5)
--- NOTE | 2019-05-30 10:25 | XR ---
EXAMINATION TYPE: XR chest 1V portable DATE OF EXAM: 05/30/2019 HISTORY: hypoxia. REFERENCE: Previous study dated 05/14/2019. FINDINGS: Lung volumes are prominent. The heart is enlarged. There is atelectasis of the right middle lobe. There is left basilar airspace disease. I suspect small, bilateral effusions. IMPRESSION: 1. INTERVAL DEVELOPMENT OF ATELECTASIS IN THE RIGHT MIDDLE LOBE. 2. LEFT BASILAR AIRSPACE DISEASE EITHER REPRESENTING ATELECTASIS OR. 3. CARDIOMEGALY. 4. SMALL, BILATERAL EFFUSIONS.
[2019-05-30 11:30] VITALS: PULSE 97
[2019-05-30 11:42] VITALS: BP 109/53; RESP 16; TEMP 97.8
== END 2019-05-30 11:41 | disposition home or self-care (01) ==
LOC: EC 09:20
DX: R09.02 Hypoxemia (principal); J98.11 Atelectasis; D72.829 Elevated white blood cell count, unspecified; R00.0 Tachycardia, unspecified; R53.83 Other fatigue; R06.2 Wheezing; R06.03 Acute respiratory distress; J44.9 Chronic obstructive pulmonary disease, unspecified; F11.10 Opioid abuse, uncomplicated; E11.9 Type 2 diabetes mellitus without complications; E78.5 Hyperlipidemia, unspecified; I10 Essential (primary) hypertension; G89.29 Other chronic pain; F17.200 Nicotine dependence, unspecified, uncomplicated; Z79.51 Long term (current) use of inhaled steroids; Z79.84 Long term (current) use of oral hypoglycemic drugs; Z79.899 Other long term (current) drug therapy; Z87.01 Personal history of pneumonia (recurrent)
CPT/HCPCS: 36415; 94640; 93005; 80053; 82140; 82803; 83605; 84484; 85025; 85610; 85730; 87502; 71045; 99285; 96374; 96361 ×2; J1100

== ENCOUNTER → 2020-10-09 | Outpatient (CLI) | payer BC ==
[2020-10-09 20:48] LABS: African American GFR (CKD) 111.6 (60.0-200.0); Albumin 4.3 g/dL (3.80-4.90); Albumin/Globulin Ratio 2.26 (1.60-3.17); Anion Gap 10.1 mmol/L (4.00-12.00); BUN/Creat Ratio 28.33 Ratio (12.00-20.00); Bilirubin, Conjugated 0.2 mg/dL (0.20-0.40); Bilirubin,Unconjugated 0.5 mg/dL; Calcium 9.4 mg/dL (8.7-10.3); Carbon Dioxide 26.9 mmol/L (21.6-31.8); Globulin 1.9 g/dL (1.6-3.3); Non-African American GFR(CKD) 96.3 (60.0-200.0); Potassium 3.9 mmol/L (3.5-5.5); Total Bilirubin 0.7 mg/dL (0.3-1.2); Total Protein 6.2 g/dL (6.2-8.2)
== END | disposition home or self-care (01) ==
LOC: LABWHC1 12:36
PROVIDERS: ATTEND Clinical Neuropsychologist
DX: K70.31 Alcoholic cirrhosis of liver with ascites (principal)
CPT/HCPCS: 36415; 80053; 82248

== ENCOUNTER 2021-10-20 11:14 | Observation (INO) | payer BC, MEDICARE ==
[2021-10-20] MEDS ORDERED: IPRATROPIUM-ALBUTEROL 3 ML NEB INHALATION STA ×2 (11:36→12:08)
[2021-10-20] MEDS ORDERED: methylPREDNISolone SOD SUCCI 125 MG/2 ML VIAL IV STA (11:36)
[2021-10-20 12:08] LABS: INR 1.1 (<1.2); Partial Thromboplastin Time 24.7 sec (22.0-30.0); Prothrombin Time 11.8 sec (9.0-12.0)
[2021-10-20] MEDS ORDERED: ACETAMINOPHEN TAB 500 MG TAB PO STA (12:08)
[2021-10-20 12:10] LABS: ALT 16 U/L (4-34); AST 24 U/L (14-36); African American GFR (CKD) >90 (>60 ml/min/1.73 sqM); Albumin 4.1 g/dL (3.5-5.0); Alkaline Phosphatase 91 U/L (38-126); Anion Gap 6 mmol/L; Blood Urea Nitrogen 30 mg/dL (7-17); Calcium 8.8 mg/dL (8.4-10.2); Carbon Dioxide 31 mmol/L (22-30); Chloride 100 mmol/L (98-107); Glucose 137 mg/dL (74-99); Non-African American GFR(CKD) 81 (>60 ml/min/1.73 sqM); Potassium 4.4 mmol/L (3.5-5.1); Sodium 137 mmol/L (137-145); Total Bilirubin 0.7 mg/dL (0.2-1.3); Total Protein 7.2 g/dL (6.3-8.2)
[2021-10-20 12:11] LABS: Basophils % (A) 0 %; Eosinophils # (A) 0.1 k/uL (0-0.7); Eosinophils % (A) 1 %; HCT 48.4 % (34.0-46.0); HGB 15.2 gm/dL (11.4-16.0); Lymphocytes # (A) 0.5 k/uL (1.0-4.8); Lymphocytes % (A) 13 %; MCH 30.9 pg (25.0-35.0); MCHC 31.5 g/dL (31.0-37.0); Monocytes # (A) 0.2 k/uL (0-1.0); Monocytes % (A) 6 %; Neutrophils # (A) 3.2 k/uL (1.3-7.7); Neutrophils % (A) 76 %; Platelet Count 143 k/uL (150-450); RBC 4.93 m/uL (3.80-5.40); RDW 13.8 % (11.5-15.5); WBC 4.1 k/uL (3.8-10.6)
--- NOTE | 2021-10-20 12:23 | XR ---
EXAMINATION TYPE: XR chest 1V DATE OF EXAM: 10/20/2021 COMPARISON: 05/30/2019 HISTORY: Shortness of breath TECHNIQUE: Single frontal view of the chest is obtained. FINDINGS: There is mild interstitial prominence which is in the and is stable there is no airspace c onsolidation is no pleural effusion. The heart size is The osseous structures are intact IMPRESSION: 1. No definite acute cardiopulmonary disease. 2. Mild interstitial prominence likely reflects mild chronic interstitial change. 3. No significant interval change.
[2021-10-20] MEDS: OSELTAMIVIR 75 MG CAP PO SCH ×2 (13:00→21:14)
--- NOTE | 2021-10-20 13:03 | ED ---
General Adult HPI - General Chief complaint: Shortness of Breath Stated complaint: Difficulty Breathing Time Seen by Provider: 10/20/21 11:30 Source: patient, family, EMS, RN notes reviewed, old records reviewed Mode of arrival: EMS Limitations: no limitations - History of Present Illness Initial comments: Patient is a 66-year-old female with past medical history remarkable for COPD not on oxygen at home, diabetes, hypertension who presents emergency department over concerns for shortness of breath. Since yesterday, patient has been having worsening upper esterase symptoms. Patient's is assisting with the story. She has been coughing. Subjective fevers. No known sick contacts. Denies any chest pain, shortness breath, nausea, vomiting, diarrhea. States she attempted to use her breathing treatments at home without much improvement. Presents for further evaluation at this time. Concern for upper respiratory infection. Denies any orthopnea, lower extremity edema, PND. - Related Data Home Medications Medication Instructions Recorded Confirmed Atorvastatin [Lipitor] 20 mg PO DAILY 06/05/18 10/20/21 buprenorphine HCL [Subutex] 8 mg SL TID 06/05/18 10/20/21 metFORMIN HCL 500 mg PO DAILY 06/05/18 10/20/21 Albuterol Sulfate [Proair Hfa] 2 puff INHALATION RT-Q6H PRN 05/14/19 10/20/21 Budesonide/Formoterol Fumarate 2 puff INHALATION RT-BID 05/14/19 10/20/21 [Symbicort 160-4.5 Mcg Inhaler] Azithromycin [Zithromax Z-pack] See Taper PO DIRECTED 10/20/21 10/20/21 Losartan Potassium 100 mg PO DAILY 10/20/21 10/20/21 hydroCHLOROthiazide [Hydrodiuril] 12.5 mg PO DAILY 10/20/21 10/20/21 predniSONE See Taper PO DIRECTED 10/20/21 10/20/21 Allergies Allergy/AdvReac Type Severity Reaction Status Date / Time No Known Allergies Allergy Verified 10/20/21 12:55 Review of Systems ROS Statement: Those systems with pertinent positive or pertinent negative responses have been documented in the HPI. Review of Systems: CONST: Endorses subjective fever EYES: Denies blurry vision ENT: Endorses nasal congestion C/V: Denies Chest pain RESP: Endorses shortness of breath GI: Denies abdominal pain : Denies dysuria SKIN: Denies rash. MSK: Denies joint pain. NEURO: Denies headache ROS Other: All systems not noted in ROS Statement are negative. Past Medical History Past Medical History: Diabetes Mellitus, Hyperlipidemia, Hypertension Additional Past Medical History / Comment(s): Chronic back and neck pain, NIDDM type II. History of Any Multi-Drug Resistant Organisms: None Reported Past Surgical History: Cholecystectomy Additional Past Surgical History / Comment(s): Bilateral cataract removals/lens implants. Past Anesthesia/Blood Transfusion Reactions: No Reported Reaction Past Psychological History: No Psychological Hx Reported Smoking Status: Former smoker Past Alcohol Use History: None Reported Past Drug Use History: None Reported - Past Family History Father Family Medical History: Coronary Artery Disease (CAD) Additional Family Medical History / Comment(s): Father had CABG. He in his 70s. Mother Family Medical History: No Reported History Additional Family Medical History / Comment(s): Mother was healthy and lived to be 92 yrs old. General Exam - General Exam Comments Initial Comments: General: Appears in mild respiratory distress. HEAD: Normal with no signs of head trauma. EYES: PERRLA, EOMI, conjunctiva normal, no discharge. ENT: Hearing grossly intact, normal oropharynx. RESPIRATORY: Bilateral end expiratory wheezing with no air movement bilaterally. Mild increased work of breathing. C/V: Tachycardic with regular rhythm. S1 and S2 auscultated. Peripheral pulses 2+ and intact throughout. No peripheral edema. ABD: Abd is soft, nontender, nondistended EXT: Normal range of motion, no obvious deformity SKIN: No rashes or lesions observed on exposed skin. NEURO: Alert and oriented 4. No focal deficits. Limitations: no limitations Course Vital Signs 10/20/21 10/20/21 10/20/21 11:22 11:26 11:27 Temperature 101.4 F H Pulse Rate 112 H Respiratory 20 20 Rate Blood Pressure 147/70 O2 Sat by Pulse 100 100 Oximetry 10/20/21 10/20/21 10/20/21 11:59 12:11 13:02 Temperature Pulse Rate 112 H 115 H 106 H Respiratory Rate Blood Pressure O2 Sat by Pulse Oximetry 10/20/21 13:11 Temperature Pulse Rate 106 H Respiratory Rate Blood Pressure O2 Sat by Pulse Oximetry Medical Decision Making - Medical Decision Making Based on the patient's presentation and physical exam, I'm concerned for what appears to be COPD exacerbation as well as infectious etiology for her current symptoms. We'll obtain basic an infectious labs. Chest x-ray and EKG will be obtained. Due to her COPD exacerbation she'll be given IV steroids as well as breathing treatments. She'll be started on BiPAP. She was in agreement this plan. EKG showed no signs of acute ischemia. Laboratory studies were remarkable for what appears to be in mild respiratory acidosis with VBG pCO2 of 67. Troponin is undetectable. BNP is within normal limits. Patient is flu A positive. She is Covid and influenza B negative. Remainder the labs are unremarkable. Chest x-ray reveals no acute cardiopulmonary process. On reevaluation, patient's wheezing is improved. She is more alert. Respiratory distress is gone down. Tachycardia is improving as well with IV fluids as well as treatment of her fever with Tylenol. I discussed the findings with her and her family. She'll be admitted to the hospital. She'll be admitted to stepdown. There were no agreement this plan. Pulmonology will be consulted for evaluation.Patient was evaluated multiple times throughout her stay for improvement in vital signs and symptoms. She continued to slowly progressively improved. I spoke with the admitting physician, Dr. Liao was in agreement with this plan. Patient will be started on Tamiflu as symptoms started yesterday. She is high risk. We'll continue breathing treatments and IV steroids in addition the BiPAP. She'll be started on her home medications. There were no agreement this plan. Maintenance fluids were started. - Lab Data Result diagrams: 10/20/21 11:39 10/20/21 11:39 Lab Results 10/20/21 10/20/21 10/20/21 Range/Units 11:39 11:39 11:39 WBC 4.1 (3.8-10.6) k/uL RBC 4.93 (3.80-5.40) m/uL Hgb 15.2 (11.4-16.0) gm/dL Hct 48.4 H (34.0-46.0) % MCV 98.0 (80.0-100.0) fL MCH 30.9 (25.0-35.0) pg MCHC 31.5 (31.0-37.0) g/dL RDW 13.8 (11.5-15.5) % Plt Count 143 L (150-450) k/uL MPV 7.0 Neutrophils % 76 % Lymphocytes % 13 % Monocytes % 6 % Eosinophils % 1 % Basophils % 0 % Neutrophils # 3.2 (1.3-7.7) k/uL Lymphocytes # 0.5 L (1.0-4.8) k/uL Monocytes # 0.2 (0-1.0) k/uL Eosinophils # 0.1 (0-0.7) k/uL Basophils # 0.0 (0-0.2) k/uL PT 11.8 (9.0-12.0) sec INR 1.1 (<1.2) APTT 24.7 (22.0-30.0) sec VBG pH (7.31-7.41) VBG pCO2 (37-51) mmHg VBG HCO3 (24-28) mmol/L Sodium 137 (137-145) mmol/L Potassium 4.4 (3.5-5.1) mmol/L Chloride 100 (98-107) mmol/L Carbon Dioxide 31 H (22-30) mmol/L Anion Gap 6 mmol/L BUN 30 H (7-17) mg/dL Creatinine 0.77 (0.52-1.04) mg/dL Est GFR (CKD-EPI)AfAm >90 (>60 ml/min/1.73 sqM) Est GFR (CKD-EPI)NonAf 81 (>60 ml/min/1.73 sqM) Glucose 137 H (74-99) mg/dL Plasma Lactic Acid Darvin (0.7-2.0) mmol/L Calcium 8.8 (8.4-10.2) mg/dL Total Bilirubin 0.7 (0.2-1.3) mg/dL AST 24 (14-36) U/L ALT 16 (4-34) U/L Alkaline Phosphatase 91 (38-126) U/L Troponin I (0.000-0.034) ng/mL NT-Pro-B Natriuret Pep pg/mL Total Protein 7.2 (6.3-8.2) g/dL Albumin 4.1 (3.5-5.0) g/dL Coronavirus (PCR) (Not Detectd) Influenza Type A RNA (Not Detectd) Influenza Type B (PCR) (Not Detectd) 10/20/21 10/20/21 10/20/21 Range/Units 11:39 11:39 11:39 WBC (3.8-10.6) k/uL RBC (3.80-5.40) m/uL Hgb (11.4-16.0) gm/dL Hct (34.0-46.0) % MCV (80.0-100.0) fL MCH (25.0-35.0) pg MCHC (31.0-37.0) g/dL RDW (11.5-15.5) % Plt Count (150-450) k/uL MPV Neutrophils % % Lymphocytes % % Monocytes % % Eosinophils % % Basophils % % Neutrophils # (1.3-7.7) k/uL Lymphocytes # (1.0-4.8) k/uL Monocytes # (0-1.0) k/uL Eosinophils # (0-0.7) k/uL Basophils # (0-0.2) k/uL PT (9.0-12.0) sec INR (<1.2) APTT (22.0-30.0) sec VBG pH (7.31-7.41) VBG pCO2 (37-51) mmHg VBG HCO3 (24-28) mmol/L Sodium (137-145) mmol/L Potassium (3.5-5.1) mmol/L Chloride (98-107) mmol/L Carbon Dioxide (22-30) mmol/L Anion Gap mmol/L BUN (7-17) mg/dL Creatinine (0.52-1.04) mg/dL Est GFR (CKD-EPI)AfAm (>60 ml/min/1.73 sqM) Est GFR (CKD-EPI)NonAf (>60 ml/min/1.73 sqM) Glucose (74-99) mg/dL Plasma Lactic Acid Darvin 0.8 (0.7-2.0) mmol/L Calcium (8.4-10.2) mg/dL Total Bilirubin (0.2-1.3) mg/dL AST (14-36) U/L ALT (4-34) U/L Alkaline Phosphatase (38-126) U/L Troponin I <0.012 (0.000-0.034) ng/mL NT-Pro-B Natriuret Pep 47 pg/mL Total Protein (6.3-8.2) g/dL Albumin (3.5-5.0) g/dL Coronavirus (PCR) (Not Detectd) Influenza Type A RNA (Not Detectd) Influenza Type B (PCR) (Not Detectd) 10/20/21 10/20/21 10/20/21 Range/Units 11:39 11:39 12:55 WBC (3.8-10.6) k/uL RBC (3.80-5.40) m/uL Hgb (11.4-16.0) gm/dL Hct (34.0-46.0) % MCV (80.0-100.0) fL MCH (25.0-35.0) pg MCHC (31.0-37.0) g/dL RDW (11.5-15.5) % Plt Count (150-450) k/uL MPV Neutrophils % % Lymphocytes % % Monocytes % % Eosinophils % % Basophils % % Neutrophils # (1.3-7.7) k/uL Lymphocytes # (1.0-4.8) k/uL Monocytes # (0-1.0) k/uL Eosinophils # (0-0.7) k/uL Basophils # (0-0.2) k/uL PT (9.0-12.0) sec INR (<1.2) APTT (22.0-30.0) sec VBG pH 7.27 L (7.31-7.41) VBG pCO2 67 H (37-51) mmHg VBG HCO3 30 H (24-28) mmol/L Sodium (137-145) mmol/L Potassium (3.5-5.1) mmol/L Chloride (98-107) mmol/L Carbon Dioxide (22-30) mmol/L Anion Gap mmol/L BUN (7-17) mg/dL Creatinine (0.52-1.04) mg/dL Est GFR (CKD-EPI)AfAm (>60 ml/min/1.73 sqM) Est GFR (CKD-EPI)NonAf (>60 ml/min/1.73 sqM) Glucose (74-99) mg/dL Plasma Lactic Acid Darvin (0.7-2.0) mmol/L Calcium (8.4-10.2) mg/dL Total Bilirubin (0.2-1.3) mg/dL AST (14-36) U/L ALT (4-34) U/L Alkaline Phosphatase (38-126) U/L Troponin I (0.000-0.034) ng/mL NT-Pro-B Natriuret Pep pg/mL Total Protein (6.3-8.2) g/dL Albumin (3.5-5.0) g/dL Coronavirus (PCR) Not Detected (Not Detectd) Influenza Type A RNA Detected H (Not Detectd) Influenza Type B (PCR) Not Detected (Not Detectd) - EKG Data -: EKG Interpreted by Me EKG Comments: 12-lead Electrocardiogram Interpretation Note EKG was reviewed and interpreted by myself. 12-lead ECG performed at 1120 is interpreted by me as revealing sinus tachycardia at a rate of 108 beats per minute. [place] is normal.. Pupils 170 ms, QRS duration 74 ms, QTc is 382 ms.. There were no ST or T wave abnormalities to suggest myocardial ischemia or in jury. R wave progression across the precordium was satisfactory. By my interpretation this EKG is non-diagnostic for acute ischemia. Critical Care Time Critical Care Time: Yes Total Critical Care Time: 35 Critical Care Time: Upon my evaluation, this patient had a high probability of imminent or life- threatening deterioration due to hypercapnic respiratory failure, COPD exacerbation requiring BiPAP use, influenza A infection, which required my direct attention, intervention, and personal management. I have personally provided 35 minutes of critical care time exclusive of time spent on separately billable procedures. Time includes review of laboratory data, radiology results, discussion with consultants, and monitoring for potential decompensation. Interventions were performed as documented in my note. Disposition Clinical Impression: COPD exacerbation, Hypercapnic respiratory failure, Influenza A Disposition: ADMITTED IP TO THIS HOSP Condition: Serious Time of Disposition: 13:00
[2021-10-20 13:07] LABS: VBG PH 7.27 (7.31-7.41)
[2021-10-20] MEDS ORDERED: SODIUM CHLORIDE 0.9% 1,000 ML IV STA ×2 (13:11)
[2021-10-20] MEDS ORDERED: NALOXONE 0.4 MG/ML 1 ML VIAL IV PRN (13:12)
--- NOTE | 2021-10-20 15:10 | P.HPIM ---
History of Present Illness H&P Date: 10/20/21 Chief Complaint: Short of breath This is a 66-year-old patient of follows with Dr. Ham. Chronic stable medical conditions include hypertension, diabetes mellitus type 2, hyperlipidemia. Patient smokes half a pack a day for several years. Accompanied in the ER by her and her daughter. Because of COPD she has had a baseline some shortness of breath. Yesterday patient became increasingly short of breath. Wheezing. Some cough. No sputum. Fever to 101.4 on presentation no chills. Appetite has been good up until yesterday. In the ER patient requiring to be on the BiPAP. Tired. Tested positive for influenza A. Started on Tamiflu. Review of systems: GEN.: Tired EYES: None HEENT: None NECK: None RESPIRATORY: As above CARDIOVASCULAR: None GASTROINTESTINAL: None GENITOURINARY: None MUSCULOSKELETAL: None LYMPHATICS: None HEMATOLOGICAL: None PSYCHIATRY: Anxious NEUROLOGICAL: None Past medical history to include: Diabetes, hypertension, hyperlipidemia, chronic back and neck pain Social history: This is a . Smokes about half a pack a day for close to 47 years. History of opioid abuse. Not for last 10 years. On Subutex Family history: CABG Physical examination: VITAL SIGNS: 101.4, 112, 20, 147/70, 100% on 4 L, currently on BiPAP GENERAL: BMI 30.2, sitting up in bed to the BiPAP, short of breath. EYES: Pupils equal. Conjunctiva normal. HEENT: External appearance of nose and ears normal, oral cavity unable to assess. NECK: JVD not raised; masses not palpable. HEART: First and second heart sounds are normal; no edema. LUNGS: Respiratory rate increased; accessory muscles looking, unable to speak in full sentences, prolonged expiration. ABDOMEN: Soft, nontender, liver spleen not palpable, no masses palpable. PSYCH: [Alert and oriented x3; mood and affect anxious. MUSCULOSKELETAL:No Clubbing/cyanosis;muscles-grossly intact NEUROLOGICAL: Cranial nerves grossly intact; no facial asymmetry, power and sensation grossly intact. LYMPHATICS: No lymph nodes palpable in the axilla and neck INVESTIGATIONS, reviewed in the clinical context: White count 4.1 hemoglobin 15.2 platelets 143 sodium 137 potassium 4.4 creatinine 0.77 ProBNP 47 COVID 19/influenza type B: Not detected Influenza type A: Detected Chest x-ray film personally reviewed by me-some flattening of diaphragm. Scant infiltrate Assessment and plan: -Acute severe COPD exacerbation in a current smoker secondary to influenza type A pneumonitis DuoNeb every 4, IV Solu-Medrol, nebulized Pulmicort, nebulized Perforomist -Acute influenza A type A pneumonitis Tamiflu -Essential hypertension Losartan 100 mg a day -Hyperlipidemia Lipitor 20 mg a day -Diabetes mellitus type 2, chronically on oral hypoglycemic Accu-Cheks and sliding scale insulin. -Acute hypoxic and hypercapnic respiratory failure, secondary to COPD exacerbation Patient currently on BiPAP -Full code DuoNeb every 4, IV Solu-Medrol, nebulized Perforomist and Pulmicort. Resume home medications. Follow Accu-Cheks. Subcu Lovenox. Consult pulmonary. Care was discussed with the patient's and daughter the bedside. Questions answered. Given the complexity and severity of patient's condition expect the patient to be in the hospital at least for 2 overnights Past Medical History Past Medical History: Diabetes Mellitus, Hyperlipidemia, Hypertension Additional Past Medical History / Comment(s): Chronic back and neck pain, NIDDM type II. History of Any Multi-Drug Resistant Organisms: None Reported Past Surgical History: Cholecystectomy Additional Past Surgical History / Comment(s): Bilateral cataract removals/lens implants. Past Anesthesia/Blood Transfusion Reactions: No Reported Reaction Past Psychological History: No Psychological Hx Reported Smoking Status: Former smoker Past Alcohol Use History: None Reported Past Drug Use History: None Reported - Past Family History Father Family Medical History: Coronary Artery Disease (CAD) Additional Family Medical History / Comment(s): Father had CABG. He in his 70s. Mother Family Medical History: No Reported History Additional Family Medical History / Comment(s): Mother was healthy and lived to be 92 yrs old. Medications and Allergies Home Medications Medication Instructions Recorded Confirmed Type Atorvastatin [Lipitor] 20 mg PO DAILY 06/05/18 10/20/21 History buprenorphine HCL [Subutex] 8 mg SL TID 06/05/18 10/20/21 History metFORMIN HCL 500 mg PO DAILY 06/05/18 10/20/21 History Albuterol Sulfate [Proair Hfa] 2 puff INHALATION RT-Q6H PRN 05/14/19 10/20/21 History Budesonide/Formoterol Fumarate 2 puff INHALATION RT-BID 05/14/19 10/20/21 History [Symbicort 160-4.5 Mcg Inhaler] Azithromycin [Zithromax Z-pack] See Taper PO DIRECTED 10/20/21 10/20/21 History Losartan Potassium 100 mg PO DAILY 10/20/21 10/20/21 History hydroCHLOROthiazide [Hydrodiuril] 12.5 mg PO DAILY 10/20/21 10/20/21 History predniSONE See Taper PO DIRECTED 10/20/21 10/20/21 History Allergies Allergy/AdvReac Type Severity Reaction Status Date / Time No Known Allergies Allergy Verified 10/20/21 12:55 Physical Exam Vitals: Vital Signs Temp Pulse Resp BP Pulse Ox 10/20/21 14:00 98 18 91/56 95 10/20/21 13:11 106 H 10/20/21 13:02 106 H 10/20/21 13:00 106 H 18 134/62 95 10/20/21 12:14 115 H 18 98 10/20/21 12:11 115 H 10/20/21 11:59 112 H 10/20/21 11:27 100 10/20/21 11:26 20 10/20/21 11:22 101.4 F H 112 H 20 147/70 100 Intake and Output 10/20/21 10/20/21 10/20/21 06:59 14:59 22:59 Other: Weight 75 kg Results CBC & Chem 7: 10/20/21 11:39 10/20/21 11:39 Labs: Abnormal Lab Results - Last 24 Hours (Table) 10/20/21 10/20/21 10/20/21 Range/Units 11:39 11:39 11:39 Hct 48.4 H (34.0-46.0) % Plt Count 143 L (150-450) k/uL Lymphocytes # 0.5 L (1.0-4.8) k/uL VBG pH (7.31-7.41) VBG pCO2 (37-51) mmHg VBG HCO3 (24-28) mmol/L Carbon Dioxide 31 H (22-30) mmol/L BUN 30 H (7-17) mg/dL Glucose 137 H (74-99) mg/dL Influenza Type A RNA Detected H (Not Detectd) 10/20/21 Range/Units 12:55 Hct (34.0-46.0) % Plt Count (150-450) k/uL Lymphocytes # (1.0-4.8) k/uL VBG pH 7.27 L (7.31-7.41) VBG pCO2 67 H (37-51) mmHg VBG HCO3 30 H (24-28) mmol/L Carbon Dioxide (22-30) mmol/L BUN (7-17) mg/dL Glucose (74-99) mg/dL Influenza Type A RNA (Not Detectd)
[2021-10-20] MEDS: IPRATROPIUM-ALBUTEROL 3 ML NEB INHALATION SCH ×2 (15:46→21:12)
[2021-10-20] MEDS ORDERED: HEPARIN SODIUM,PORCINE/PF 5,000 UNIT/0.5 ML SYRINGE SQ SCH (16:00)
[2021-10-20] MEDS: ENOXAPARIN 40 MG/0.4 ML SYRINGE SQ SCH (16:23)
[2021-10-20] MEDS: methylPREDNISolone SOD SUCCI 40 MG/ML 1 ML VIAL IV SCH ×2 (16:24→23:40)
[2021-10-20] MEDS: INSULIN ASPART (NovoLOG) 100 UNIT/ML VIAL SQ SCH (17:57)
[2021-10-20] MEDS ORDERED: methylPREDNISolone SOD SUCCI 40 MG/ML 1 ML VIAL IV SCH (18:00)
[2021-10-20] MEDS ORDERED: SYMBICORT 160-4.5 MCG INHALER INHALATION SCH (20:00)
[2021-10-20 20:40] LABS: Glucose,Whole Blood 202 mg/dL (75-99)
[2021-10-20] MEDS: FORMOTEROL FUMARATE 20 MCG/2 ML NEBU INHALATION SCH (21:12)
[2021-10-20] MEDS: BUDESONIDE 1 MG/2 ML NEBU INHALATION SCH (21:13)
[2021-10-21] MEDS: IPRATROPIUM-ALBUTEROL 3 ML NEB INHALATION SCH ×5 (04:06→15:47)
[2021-10-21 06:07] LABS: Glucose,Whole Blood 174 mg/dL (75-99)
[2021-10-21] MEDS: INSULIN ASPART (NovoLOG) 100 UNIT/ML VIAL SQ SCH ×2 (06:23→11:57)
[2021-10-21 07:51] LABS: Basophils % (A) 0 %; Eosinophils % (A) 0 %; HCT 40.9 % (34.0-46.0); HGB 12.9 gm/dL (11.4-16.0); Lymphocytes # (A) 0.4 k/uL (1.0-4.8); Lymphocytes % (A) 9 %; MCH 31.1 pg (25.0-35.0); MCHC 31.6 g/dL (31.0-37.0); MCV 98.4 fL (80.0-100.0); Mean Platelet Volume 7.2; Monocytes # (A) 0.1 k/uL (0-1.0); Monocytes % (A) 3 %; Neutrophils # (A) 3.3 k/uL (1.3-7.7); Neutrophils % (A) 86 %; Platelet Count 147 k/uL (150-450); RBC 4.16 m/uL (3.80-5.40); RDW 13.6 % (11.5-15.5); WBC 3.8 k/uL (3.8-10.6)
[2021-10-21] MEDS: FORMOTEROL FUMARATE 20 MCG/2 ML NEBU INHALATION SCH (07:57)
[2021-10-21] MEDS: BUDESONIDE 1 MG/2 ML NEBU INHALATION SCH (07:57)
[2021-10-21 08:03] LABS: African American GFR (CKD) >90 (>60 ml/min/1.73 sqM); Anion Gap 4 mmol/L; Blood Urea Nitrogen 32 mg/dL (7-17); Carbon Dioxide 29 mmol/L (22-30); Chloride 105 mmol/L (98-107); Glucose 170 mg/dL (74-99); Non-African American GFR(CKD) >90 (>60 ml/min/1.73 sqM); Potassium 4.4 mmol/L (3.5-5.1); Sodium 138 mmol/L (137-145)
[2021-10-21] MEDS ORDERED: OSELTAMIVIR 60 MG/10 ML ORAL SYRINGE PO SCH (09:00)
[2021-10-21] MEDS ORDERED: hydroCHLOROthiazide 12.5 MG CAP PO SCH (09:00)
[2021-10-21] MEDS ORDERED: metFORMIN 500 MG TAB PO SCH (09:00)
[2021-10-21] MEDS ORDERED: LOSARTAN 50 MG TAB PO SCH (09:00)
[2021-10-21] MEDS ORDERED: ATORVASTATIN 20 MG TAB PO SCH (09:00)
[2021-10-21] MEDS: methylPREDNISolone SOD SUCCI 40 MG/ML 1 ML VIAL IV SCH ×2 (09:26→15:31)
[2021-10-21] MEDS: ENOXAPARIN 40 MG/0.4 ML SYRINGE SQ SCH (09:26)
[2021-10-21 11:43] LABS: Glucose,Whole Blood 203 mg/dL (75-99)
[2021-10-21 12:40] VITALS: RESP 16
--- NOTE | 2021-10-21 13:04 | P.CNPUL ---
History of Present Illness Consult date: 10/21/21 Requesting physician: Isidro Liao Reason for consult: COPD, other (Influenza pneumonia ) Chief complaint: Shortness of breath History of present illness: This is a 66-year-old female with known history of COPD, FEV1 is in the range of 51%, patient is O2 dependent, and she is normally on oxygen at home. At 2 L/m. Patient is also known to have history of hypertension, type 2 diabetes, dysli pidemia, patient had at least a [id number] smoking history, she was admitted yesterday mostly with symptoms of shortness of breath for the last 2 days. Part of the workup included influenza testing, and the patient tested positive for influenza a. Initially when she was seen in the ER, patient had to be placed on BiPAP, however when I saw today the patient is back on her nasal cannula. Patient is on 5 L nasal cannula, and her O2 sats is 93%. Patient is requesting to be discharged home with possible. She feels much better today compared to how she felt upon her initial presentation. Less cough and less wheezing less shortness of breath. No fever no chills no hemoptysis no chest pain. CBC is relatively normal unremarkable. Electrolytes are normal. Chest x-ray showed no evidence of pneumonia. Review of Systems Constitutional: Weakness and fatigue. EYES: No blurred vision no dizziness. HEENT: No sore throat. No headache. RESPIRATORY: Cough, wheezing and shortness of breath. Cough is productive with whitish phlegm. CARDIOVASCULAR: Negative. GASTROINTESTINAL: No nausea no vomiting no melena no hematemesis. GENITOURINARY: Denies dysuria frequency or urgency. MUSCULOSKELETAL: Negative except for generalized aches and pains. LYMPHATICS: None HEMATOLOGICAL: Negative. PSYCHIATRY: Negative. No symptoms of depression. NEUROLOGICAL: Negative Past Medical History Past Medical History: Diabetes Mellitus, Hyperlipidemia, Hypertension Additional Past Medical History / Comment(s): Chronic back and neck pain, NIDDM type II. History of Any Multi-Drug Resistant Organisms: None Reported Past Surgical History: Cholecystectomy Additional Past Surgical History / Comment(s): Bilateral cataract removals/lens implants. Past Anesthesia/Blood Transfusion Reactions: No Reported Reaction Past Psychological History: No Psychological Hx Reported Additional Psychological History / Comment(s): Pt resides with her spouse. She is independent. Smoking Status: Current every day smoker Past Alcohol Use History: None Reported Additional Past Alcohol Use History / Comment(s): Pt started smoking in 1974 and is a half a ppd smoker. Past Drug Use History: None Reported Additional Drug Use History / Comment(s): Pt has hx of opiod abuse but has not for 8-10 years. She is on subutex - Past Family History Father Family Medical History: Coronary Artery Disease (CAD) Additional Family Medical History / Comment(s): Father had CABG. He in his 70s. Mother Family Medical History: No Reported History Additional Family Medical History / Comment(s): Mother was healthy and lived to be 92 yrs old. Medications and Allergies Home Medications Medication Instructions Recorded Confirmed Type Atorvastatin [Lipitor] 20 mg PO DAILY 06/05/18 10/20/21 History buprenorphine HCL [Subutex] 8 mg SL TID 06/05/18 10/20/21 History metFORMIN HCL 500 mg PO DAILY 06/05/18 10/20/21 History Albuterol Sulfate [Proair Hfa] 2 puff INHALATION RT-Q6H PRN 05/14/19 10/20/21 History Budesonide/Formoterol Fumarate 2 puff INHALATION RT-BID 05/14/19 10/20/21 History [Symbicort 160-4.5 Mcg Inhaler] Azithromycin [Zithromax Z-pack] See Taper PO DIRECTED 10/20/21 10/20/21 History Losartan Potassium 100 mg PO DAILY 10/20/21 10/20/21 History hydroCHLOROthiazide [Hydrodiuril] 12.5 mg PO DAILY 10/20/21 10/20/21 History predniSONE See Taper PO DIRECTED 10/20/21 10/20/21 History Allergies Allergy/AdvReac Type Severity Reaction Status Date / Time No Known Allergies Allergy Verified 10/20/21 12:55 Physical Exam Vitals: Vital Signs Temp Pulse Pulse Resp BP BP Pulse Ox 10/21/21 12:39 98 F 88 16 117/68 93 L 10/21/21 11:56 77 10/21/21 11:45 78 10/21/21 08:22 88 10/21/21 08:12 82 10/21/21 08:11 80 10/21/21 08:10 97.9 F 81 17 108/64 97 10/21/21 08:01 97 10/21/21 08:00 80 10/21/21 04:15 112 H 10/21/21 04:08 106 H 10/21/21 03:24 98.4 F 80 14 108/68 93 L 10/21/21 01:49 16 10/21/21 00:06 84 10/21/21 00:00 80 10/20/21 23:41 98 F 77 20 95/53 94 L 10/20/21 21:28 84 10/20/21 21:17 84 96 10/20/21 20:00 98.3 F 74 22 98/60 96 10/20/21 17:57 98.2 F 81 24 107/65 97 10/20/21 17:00 84 18 114/52 93 L 10/20/21 16:00 83 18 108/49 95 10/20/21 15:56 83 10/20/21 15:46 83 10/20/21 15:00 85 18 90/45 94 L 10/20/21 14:25 99.0 F 10/20/21 14:00 98 18 91/56 95 10/20/21 13:11 106 H 10/20/21 13:02 106 H 10/20/21 13:00 106 H 18 134/62 95 Intake and Output 10/20/21 10/21/21 10/21/21 22:59 06:59 14:59 Intake Total 400 118 Balance 400 118 Intake: Oral 400 118 Other: # Voids 1 1 Weight 75 kg Physical Exam: Revealed a 66-year-old female in no distress, however she is on oxygen, but feeling much better compared to yesterday, and asking to be discharged home. Head: Atraumatic, normocephalic. HEENT:[Neck is supple.] [No neck masses.] [No thyromegaly.] [No JVD.] Chest: [Diminished breath sound bilaterally no crackles or rhonchi or wheezes Cardiac Exam: [Normal S1 and S2, no S3 gallop, no murmur.] Abdomen: [Soft, nontender, no megaly, no rebound, no guarding, normal bowel sounds.] Extremities: [No clubbing, no edema, no cyanosis.] Neurological Exam: [No focal neurologic deficit.] Alert oriented 3. Psychiatric: Normal mood affect and normal mental status examination. Skin: No rashes. Results - Laboratory Findings CBC and BMP: 10/21/21 07:23 10/21/21 07:23 PT/INR, D-dimer PT 11.8 sec (9.0-12.0) 10/20/21 11:39 INR 1.1 (<1.2) 10/20/21 11:39 Abnormal lab findings: Abnormal Labs 10/20/21 10/20/21 10/20/21 11:39 11:39 11:39 Hct 48.4 H Plt Count 143 L Lymphocytes # 0.5 L VBG pH VBG pCO2 VBG HCO3 Carbon Dioxide 31 H BUN 30 H Glucose 137 H POC Glucose (mg/dL) Calcium Influenza Type A RNA Detected H 10/20/21 10/20/21 10/21/21 12:55 20:38 06:05 Hct Plt Count Lymphocytes # VBG pH 7.27 L VBG pCO2 67 H VBG HCO3 30 H Carbon Dioxide BUN Glucose POC Glucose (mg/dL) 202 H 174 H Calcium Influenza Type A RNA 10/21/21 10/21/21 10/21/21 07:23 07:23 11:42 Hct Plt Count 147 L Lymphocytes # 0.4 L VBG pH VBG pCO2 VBG HCO3 Carbon Dioxide BUN 32 H Glucose 170 H POC Glucose (mg/dL) 203 H Calcium 8.0 L Influenza Type A RNA - Diagnostic Findings Chest x-ray: image reviewed (As noted in HPI.) Assessment and Plan Assessment: Impression: Acute on chronic hypoxic and hypercapnic respiratory failure secondary to acute exacerbation of COPD, exacerbated by acute influenza type a infection. Benign essential hypertension Type 2 diabetes Dyslipidemia Acute influenza a infection. Chronic hypoxic respiratory failure secondary to COPD Recommendation: Continue present course of bronchodilators. Continue Tamiflu. Continue oxygen and titrate accordingly. Continue Pulmicort. Continue Perforomist. Continue DuoNeb updrafts 4 times a day and when necessary. Continue methylprednisolone , can possibly transition the patient to prednisone if the patient insists on going home today. We'll clear the patient to go home as long as she is discharged home on Tamiflu, and her usual bronchodilators as well as prednisone burst and taper. Patient to follow-up in our office in one week post discharge, patient usually sees Dr. Concepcion Time with Patient: Greater than 30
[2021-10-21 15:47] VITALS: BP 115/65; PULSE 87; TEMP 98.2
--- NOTE | 2021-10-21 19:55 | P.DS ---
Providers Date of admission: 10/20/21 13:24 Expected date of discharge: 10/21/21 Attending physician: Isidro Liao Consults: 10/20/21 13:23 Consult Physician Routine Consulting Provider: Marlon Davis Consult Reason/Comments: copd exacerbation, Hypercapneia, Influenza A. On bipap Do you want consulting provider notified?: Yes Primary care physician: Ken Ham [facility] Course: Chief Complaint: Short of breath This is a 66-year-old patient of follows with Dr. Ham. Chronic stable medical conditions include hypertension, diabetes mellitus type 2, hyperlipidemia. Patient smokes half a pack a day for several years. Accompanied in the ER by her and her daughter. Because of COPD she has had a baseline some shortness of breath. Yesterday patient became increasingly short of breath. Wheezing. Some cough. No sputum. Fever to 101.4 on presentation no chills. Appetite has been good up until yesterday. In the ER patient requiring to be on the BiPAP. Tired. Tested positive for influenza A. Started on Tamiflu. October 21: Decreased appetite. Did eat some. Tired. at the bedside. Both patient and the both adamant that patient should go home. I did explain my concern now for relapsing. Patient still tight in the lungs. Nurse is present. Will DC the patient on steroids and Tamiflu. Patient seen by pulmonary. Discussion and discharge planning more than 35 minutes Past medical history to include: Diabetes, hypertension, hyperlipidemia, chronic back and neck pain Social history: This is a . Smokes about half a pack a day for close to 47 years. History of opioid abuse. Not for last 10 years. On Subutex Family history: CABG Physical examination: VITAL SIGNS: 98.2, 87, 16, 115/65, 98% on 4 L GENERAL: Sitting up in a chair, breathing better, less short of breath EYES: Pupils equal. Conjunctiva normal. HEENT: External appearance of nose and ears normal, oral cavity unable to assess. NECK: JVD not raised; masses not palpable. HEART: First and second heart sounds are normal; no edema. LUNGS: Respiratory rate increased; diminished breath sound, prolonged expiration ABDOMEN: Soft, nontender, liver spleen not palpable, no masses palpable. PSYCH: [Alert and oriented x3; mood and affect anxious. MUSCULOSKELETAL:No Clubbing/cyanosis;muscles-grossly intact INVESTIGATIONS, reviewed in the clinical context: October 21: 13.8 hemoglobin 12.9 potassium 4.4 creatinine 0.53 White count 4.1 hemoglobin 15.2 platelets 143 sodium 137 potassium 4.4 creatinine 0.77 ProBNP 47 COVID 19/influenza type B: Not detected Influenza type A: Detected Chest x-ray film personally reviewed by me-some flattening of diaphragm. Scant infiltrate EKG tracing personally reviewed by me-normal sinus rhythm Assessment and plan: -Acute severe COPD exacerbation in a current smoker secondary to influenza type A pneumonitis DuoNeb every 4, IV Solu-Medrol, nebulized Pulmicort, nebulized Perforomist -Acute influenza A type A pneumonitis Tamiflu -Essential hypertension Losartan 100 mg a day -Hyperlipidemia Lipitor 20 mg a day -Diabetes mellitus type 2, chronically on oral hypoglycemic Accu-Cheks and sliding scale insulin. -Acute hypoxic and hypercapnic respiratory failure, secondary to COPD exacerbation Patient currently on BiPAP -Full code Disposition: Home Plan - Discharge Summary Discharge Rx Participant: No New Discharge Prescriptions: New predniSONE 10 mg PO DAILY #30 tab Oseltamivir [Tamiflu] 75 mg PO Q12HR #10 cap Continue metFORMIN HCL 500 mg PO DAILY buprenorphine HCL [Subutex] 8 mg SL TID Atorvastatin [Lipitor] 20 mg PO DAILY Budesonide/Formoterol Fumarate [Symbicort 160-4.5 Mcg Inhaler] 2 puff INHALATION RT-BID Albuterol Sulfate [Proair Hfa] 2 puff INHALATION RT-Q6H PRN PRN Reason: Shortness Of Breath Losartan Potassium 100 mg PO DAILY hydroCHLOROthiazide [Hydrodiuril] 12.5 mg PO DAILY Discontinued predniSONE See Taper PO DIRECTED Azithromycin [Zithromax Z-pack] See Taper PO DIRECTED Discharge Medication List Atorvastatin [Lipitor] 20 mg PO DAILY 06/05/18 [History] buprenorphine HCL [Subutex] 8 mg SL TID 06/05/18 [History] metFORMIN HCL 500 mg PO DAILY 06/05/18 [History] Albuterol Sulfate [Proair Hfa] 2 puff INHALATION RT-Q6H PRN 05/14/19 [History] Budesonide/Formoterol Fumarate [Symbicort 160-4.5 Mcg Inhaler] 2 puff INHALATION RT-BID 05/14/19 [History] Losartan Potassium 100 mg PO DAILY 10/20/21 [History] hydroCHLOROthiazide [Hydrodiuril] 12.5 mg PO DAILY 10/20/21 [History] Oseltamivir [Tamiflu] 75 mg PO Q12HR #10 cap 10/21/21 [Rx] predniSONE 10 mg PO DAILY #30 tab 10/21/21 [Rx] Follow up Appointment(s)/Referral(s): Marlon Davis MD [STAFF PHYSICIAN] - 1 Week Ken Ham DO [Primary Care Provider] - 1-2 days Patient Instructions/Handouts: Influenza (DC), COPD (Chronic Obstructive Pulmonary Disease) (DC) Discharge Disposition: HOME SELF-CARE
[2021-10-21] MEDS ORDERED: OSELTAMIVIR 75 MG CAP PO SCH (21:00)
== END 2021-10-21 16:43 | disposition home or self-care (01) ==
LOC: EC 11:14 → 3SCARD 13:24 → INTOOBSV 13:24 → 3SCARD 15:00 → UNDODISIN 10-21 16:43
PROVIDERS: ADMIT Hospitalist; ATTEND Hospitalist
PROC: 5A09357 Assistance with Respiratory Ventilation, Less than 24 Consecutive Hours, Continuous Positive Airway Pressure (ICD-10-PCS; principal; 2021-10-20)
DX: J10.00 Influenza due to other identified influenza virus with unspecified type of pneumonia (principal); J96.21 Acute and chronic respiratory failure with hypoxia; J96.22 Acute and chronic respiratory failure with hypercapnia; J44.1 Chronic obstructive pulmonary disease with (acute) exacerbation; J44.0 Chronic obstructive pulmonary disease with (acute) lower respiratory infection; F17.210 Nicotine dependence, cigarettes, uncomplicated; E78.5 Hyperlipidemia, unspecified; E11.9 Type 2 diabetes mellitus without complications; I10 Essential (primary) hypertension; G89.29 Other chronic pain; M54.2 Cervicalgia; M54.9 Dorsalgia, unspecified; Z20.822 Contact with and (suspected) exposure to COVID-19; Z79.84 Long term (current) use of oral hypoglycemic drugs; Z79.51 Long term (current) use of inhaled steroids; Z79.899 Other long term (current) drug therapy; Z98.41 Cataract extraction status, right eye; Z98.42 Cataract extraction status, left eye; Z96.1 Presence of intraocular lens; Z90.49 Acquired absence of other specified parts of digestive tract; Z87.898 Personal history of other specified conditions; Z99.81 Dependence on supplemental oxygen; Z82.49 Family history of ischemic heart disease and other diseases of the circulatory system
CPT/HCPCS: 96376 ×3; 96361 ×3; 96372 ×2; 96374; 99291; 36415; 94660 ×2; 94640 ×4; 94760 ×2; 93005; 83880; 80053; 80048; 82803; 83605; 84484; 85025 ×2; 85610; 85730; 87040; 87502; 87635; 71045; G0378 ×2; J2920 ×2; J2930; J1650 ×2